=== PATIENT | male | born 1970 | race Caucasian/White ===

== ENCOUNTER 2018-06-21 12:46 | Emergency (ER) | payer OTHER, SELFPAY ==
[2018-06-21 12:47] VITALS: BP 117/80; PULSE 111; RESP 16; TEMP 36.9; O2SAT 97; BMI 22.6
[2018-06-21 13:19] LABS: Absolute Lymphocyte Count 1.05 X10^3/ul (0.83-4.51); Absolute Neutrophil Count 6.3 X10^3/uL (2.0-7.7); Basophil# 0.02 X10^3/uL; Basophil% 0.2 % (0-1); Eosinophil# 0.19 X10^3/uL; Eosinophils% 2.2 % (0-5); Hematocrit 40.2 % (40-54); Hemoglobin 13.2 g/dl (13.0-16.5); Lymphocyte # 1.05 X10^3/ul (4.0); Mean Corp Hgb Conc 32.8 g/gl (32-36); Mean Corpuscular Hgb 30.3 pg (27.0-32.0); Mean Corpuscular Volume 92.4 fL (80-94); Mean Platelet Vol. 8.8 fl (6.2-12.0); Monocyte# 1.17 X10^3/uL; Monocyte% 13.4 % (0-10); Neutrophil # 6.31 X10^3/uL (2.7-7.7); Neutrophil % 72.1 % (47-70); Platelet Count 310 K/mm3 (150-450); RBC Distribution Width CV 13.3 % (11.6-14.6); RBC Distribution Width SD 45.1 fl (35.1-43.9); Red Blood Count 4.35 M/mm3 (4.6-6.2); White Blood Count 8.8 K/mm3 (4.4-11.0)
[2018-06-21 13:23] LABS: POSITIVE COUNT NO; POSITIVE DIFFERENTIAL NO; POSITIVE MORPHOLOGY NO
[2018-06-21 13:35] LABS: Anion Gap 6 (5-15); BUN 16 mg/dL (7-18); BUN/Creat Ratio 16.8 RATIO (10-20); Calcium,Total 9.2 mg/dL (8.5-10.1); Chloride 106 mmol/L (98-107); Creatinine, Serum 0.95 mg/dL (0.70-1.30); EST Glomerular Filtration Rate 89 mL/min (>60); Est Glom Filt Rate - Afr Amer 108 mL/min (>60); Glucose 116 mg/dL (74-106); Potassium 4.1 mmol/L (3.5-5.1); Sodium Level 141 mmol/L (136-145)
--- NOTE | 2018-06-21 13:55 | RAD_ITS ---
STUDY: X-RAY - RIGHT TIBIA AND FIBULA REASON FOR EXAM: Male, 48 years old. Right leg wound. Possible infection. TECHNIQUE: 2 view(s) and 4 images of the tibia and fibula were obtained. COMPARISON: None. FINDINGS: The patient is status post open reduction internal fixation of a proximal tibial fracture with screw and sideplate fixation device. There is a focal lucency at the fracture site in the proximal tibia measuring 1.4 cm. Healed proximal diaphyseal fracture of the ulna. Focal soft tissue swelling overlying the proximal shaft of the tibia at the fracture site and within the lucency is seen. This may represent an area of osteomyelitis. RAD/Tibia & Fibula 2 Views IMPRESSION: Focal soft tissue swelling and lucency at the fracture site in the proximal tibial shaft suggestive of osteomyelitis. Electronically Signed: Stuart Diaz, at 14:14 EDT , Service support ,
[2018-06-21 15:11] VITALS: BP 133/86; PULSE 82; RESP 16; O2SAT 99
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
--- NOTE | 2018-06-21 15:22 | ED.DEP ---
ED Disposition - Plan for ED Patient: Instructions: Discharge Instructions for Osteomyelitis Prescriptions: Cephalexin [Keflex] 500 mg PO Q6 #56 cap Smz/Tmp Ds [Bactrim Ds] 1 tab PO BID #28 tab Referrals: Davon Bond MD [STAFF PHYSICIAN] -
[2018-06-21 15:38] VITALS: BP 134/62; PULSE 59; RESP 16; O2SAT 97
[2018-06-21 15:58] LABS: Erythrocyte Sedimentation Rate 73 mm/hr (0-20)
== END 2018-06-21 15:38 | disposition home or self-care (01) ==
PROVIDERS: Emergency Provider Emergency Medicine
DX: M86.9 Osteomyelitis, unspecified (principal); Z72.0 Tobacco use
CPT/HCPCS: 73590; 80048; 85025; 85652; 86140; 99283; A4216

== ENCOUNTER 2018-10-05 21:45 | Emergency (ER) | payer OTHER, SELFPAY ==
[2018-10-05 21:48] VITALS: BP 125/73; BP 125/79; PULSE 99; RESP 17; TEMP 36.5; O2SAT 96; BMI 20.9
--- NOTE | 2018-10-05 23:42 | ED.VISSUMM ---
- ER Visit Summary Date of Service: 10/05/18 Chief Complaint: Foreign body sensation History of Present Illness: The patient is a 48 M who presents with a foreign body sensation left eye. 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 After work beginning about 5 hours ago he began to have a foreign body sensation redness and tearing in his left eye. He is concerned there may be some metal at rest. He has a history of prior similar symptoms. Physical Examination: Afebrile vitals unremarkable There is some conjunctival injection on the left Pupils are equally round reactive to light, extraocular motion intact without pain or palsy Anterior chamber deep and quiet Slit-lamp examination does show a metallic foreign body in the cornea near the 12 o'clock position Test Results: Slit-lamp examination Emergency Department Course and Treatment: The metallic foreign body was removed using the eye bur without any immediate complication. There is a residual rust ring. Patient was placed on ophthalmic antibiotic drops and referred to ophthalmology for follow-up. He understands to return for new or worsening symptoms. Treatment Plan: [] Disposition: Discharge Impression: Corneal foreign body, left, removed Rust ring left eye This note was generated with [employer] dictation software. It may contain incorrect words, spelling, and punctuation that were not noted in review of the chart prior to signing ED Disposition - Plan for ED Patient: Referrals: Care Physician,No Primary [Primary Care Provider] -
[2018-10-06] MEDS: Tetracaine 0.5% Ophthalmic Bottle 1 DRP LEFT EYE (00:06)
[2018-10-06] MEDS: Fluorescein 1 MG STRIP 1 STRIP LEFT EYE (00:06)
--- NOTE | 2018-10-06 00:07 | ED.DEP ---
ED Disposition - Plan for ED Patient: Instructions: CORNEAL FOREIGN BODY, Removed, w/ Rust Ring Referrals: Care Physician,No Primary [Primary Care Provider] - Josue Zimmerman MD [STAFF PHYSICIAN] -
[2018-10-06] MEDS: Gentamicin Sulfate 1 OPTH.BTL 1 DRP LEFT EYE (00:08)
== END 2018-10-06 00:16 | disposition home or self-care (01) ==
PROVIDERS: Emergency Provider Emergency Medicine
DX: T15.02XA Foreign body in cornea, left eye, initial encounter (principal); X58.XXXA Exposure to other specified factors, initial encounter; Y93.9 Activity, unspecified; Y92.9 Unspecified place or not applicable; Z72.0 Tobacco use
CPT/HCPCS: 99283

== ENCOUNTER → 2018-12-15 18:58 | Outpatient (CLI) | payer OTHER, SELFPAY ==
[2018-12-15 19:29] LABS: Absolute Lymphocyte Count 2.18 X10^3/uL (0.83-4.51); Absolute Neutrophil Count 3.6 X10^3/uL (2.0-7.7); Basophil# 0.06 X10^3/uL; Basophil% 0.9 % (0-1); Eosinophil# 0.25 X10^3/uL; Eosinophils% 3.6 % (0-5); Hematocrit 36.7 % (40-54); Hemoglobin 11.8 g/dL (13.0-16.5); Lymphocyte # 2.18 X10^3/ul (4.0); Lymphocyte % 31.2 % (19-41); Mean Corp Hgb Conc 32.2 g/dL (32-36); Mean Corpuscular Hgb 30.7 pg (27.0-32.0); Mean Corpuscular Volume 95.6 fL (80-94); Mean Platelet Vol. 9.1 fl (6.2-12.0); Monocyte# 0.86 X10^3/uL; Monocyte% 12.3 % (0-10); NRBC Flagged by Analyzer 0 % (0-5); Neutrophil # 3.62 X10^3/uL (2.7-7.7); Neutrophil % 51.7 % (47-70); Platelet Count 239 K/mm3 (150-450); RBC Distribution Width CV 14.3 % (11.6-14.6); RBC Distribution Width SD 50.4 fl (35.1-43.9); Red Blood Count 3.84 M/mm3 (4.6-6.2)
[2018-12-15 20:01] LABS: Erythrocyte Sedimentation Rate 3 mm/hr (0-20)
[2018-12-15 20:09] LABS: ALB/GLOB Ratio 1.3 RATIO (0.9-2.4); AST(SGOT) 22 U/L (15-37); Alanine Aminotransfer ALT/SGPT 27 U/L (16-61); Albumin, Serum 4.3 g/dL (3.2-5.0); Alkaline Phosphatase 45 U/L (45-117); Anion Gap 7 (5-15); BUN 23 mg/dL (7-18); BUN/Creat Ratio 23.9 RATIO (10-20); Calcium,Total 9.1 mg/dL (8.5-10.1); Chloride 107 mmol/L (98-107); Creatinine, Serum 0.96 mg/dL (0.70-1.30); EST Glomerular Filtration Rate 88 mL/min (>60); Est Glom Filt Rate - Afr Amer 106 mL/min (>60); Globulin 3.3 g/dL (2.2-4.2); Glucose 62 mg/dL (74-106); Protein, Total 7.6 g/dL (6.4-8.2); Sodium Level 140 mmol/L (136-145)
== END ==
PROVIDERS: Referring Provider Internal Medicine Infectious Disease; Visit Provider Internal Medicine Infectious Disease
DX: T84.7XXD Infection and inflammatory reaction due to other internal orthopedic prosthetic devices, implants and grafts, subsequent encounter (principal)
CPT/HCPCS: 36415; 80053; 85025; 85652

== ENCOUNTER → 2019-10-19 16:27 | Outpatient (CLI) | payer OTHER, SELFPAY ==
[2019-10-19 17:06] LABS: Absolute Lymphocyte Count 1.71 X10^3/uL (0.83-4.51); Basophil# 0.05 X10^3/uL; Basophil% 0.7 % (0-1); Eosinophil# 0.23 X10^3/uL; Eosinophils% 3.4 % (0-5); Hematocrit 37.3 % (40-54); Hemoglobin 11.9 g/dL (13.0-16.5); Lymphocyte # 1.71 X10^3/ul (4.0); Lymphocyte % 25.1 % (19-41); Mean Corp Hgb Conc 31.9 g/dL (32-36); Mean Corpuscular Hgb 30.9 pg (27.0-32.0); Mean Corpuscular Volume 96.9 fL (80-94); Mean Platelet Vol. 9.5 fl (6.2-12.0); Monocyte% 11.7 % (0-10); NRBC Flagged by Analyzer 0 % (0-5); Neutrophil # 4.01 X10^3/uL (2.7-7.7); Neutrophil % 58.8 % (47-70); Platelet Count 284 K/mm3 (150-450); RBC Distribution Width CV 14.3 % (11.6-14.6); RBC Distribution Width SD 50.8 fl (35.1-43.9); Red Blood Count 3.85 M/mm3 (4.6-6.2); White Blood Count 6.8 K/mm3 (4.4-11.0)
[2019-10-19 17:32] LABS: ALB/GLOB Ratio 1.2 RATIO (0.9-2.4); AST(SGOT) 18 U/L (15-37); Alanine Aminotransfer ALT/SGPT 21 U/L (16-61); Alkaline Phosphatase 56 U/L (45-117); Anion Gap 4 (5-15); BUN 26 mg/dL (7-18); BUN/Creat Ratio 30.4 RATIO (10-20); Calcium,Total 8.7 mg/dL (8.5-10.1); Chloride 109 mmol/L (98-107); Creatinine, Serum 0.85 mg/dL (0.70-1.30); EST Glomerular Filtration Rate 100 mL/min (>60); Est Glom Filt Rate - Afr Amer 121 mL/min (>60); Globulin 3.4 g/dL (2.2-4.2); Glucose 108 mg/dL (74-106); Potassium 3.9 mmol/L (3.5-5.1); Protein, Total 7.4 g/dL (6.4-8.2); Sodium Level 138 mmol/L (136-145)
== END ==
PROVIDERS: Referring Provider Internal Medicine Infectious Disease; Visit Provider Internal Medicine Infectious Disease
DX: M86.60 Other chronic osteomyelitis, unspecified site (principal); T84.7XXD Infection and inflammatory reaction due to other internal orthopedic prosthetic devices, implants and grafts, subsequent encounter
CPT/HCPCS: 36415; 80053; 85025

== ENCOUNTER 2020-06-04 17:06 | Emergency (ER) | payer OTHER, SELFPAY ==
[2020-06-04 17:07] VITALS: BP 125/65; PULSE 107; RESP 18; TEMP 36.3; O2SAT 96
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
[2020-06-04 17:40] LABS: Absolute Lymphocyte Count 1.85 X10^3/uL (0.83-4.51); Absolute Neutrophil Count 4.4 X10^3/uL (2.0-7.7); Basophil# 0.05 X10^3/uL; Basophil% 0.7 % (0-1); Eosinophil# 0.22 X10^3/uL; Hematocrit 39.5 % (40-54); Hemoglobin 12.9 g/dL (13.0-16.5); Lymphocyte # 1.85 X10^3/ul (4.0); Mean Corp Hgb Conc 32.7 g/dL (32-36); Mean Corpuscular Hgb 31.8 pg (27.0-32.0); Mean Corpuscular Volume 97.3 fL (80-94); Mean Platelet Vol. 8.9 fl (6.2-12.0); Monocyte% 12.2 % (0-10); NRBC Flagged by Analyzer 0 % (0-5); Neutrophil # 4.36 X10^3/uL (2.7-7.7); Neutrophil % 58.8 % (47-70); Platelet Count 277 K/mm3 (150-450); RBC Distribution Width CV 13.9 % (11.6-14.6); RBC Distribution Width SD 49.5 fl (35.1-43.9); Red Blood Count 4.06 M/mm3 (4.6-6.2); White Blood Count 7.4 K/mm3 (4.4-11.0)
[2020-06-04 17:49] VITALS: BP 125/65; PULSE 107; RESP 18; TEMP 36.3; O2SAT 96
[2020-06-04] MEDS: 0.9% Normal Saline 1,000 ML 150 ML IV (17:49)
[2020-06-04 17:57] LABS: AST(SGOT) 15 U/L (15-37); Alanine Aminotransfer ALT/SGPT 21 U/L (16-61); Albumin, Serum 3.9 g/dL (3.2-5.0); Alkaline Phosphatase 59 U/L (45-117); Anion Gap 5 (5-15); BUN 34 mg/dL (7-18); BUN/Creat Ratio 34.8 RATIO (10-20); Calcium,Total 9.4 mg/dL (8.5-10.1); Chloride 111 mmol/L (98-107); Creatinine, Serum 0.98 mg/dL (0.70-1.30); EST Glomerular Filtration Rate 86 mL/min (>60); Est Glom Filt Rate - Afr Amer 104 mL/min (>60); Estimated Creatinine Clearance 3.15 ml/min; Globulin 3.9 g/dL (2.2-4.2); Glucose 112 mg/dL (74-106); Lipase 210 U/L (73-393); Potassium 4.2 mmol/L (3.5-5.1); Protein, Total 7.8 g/dL (6.4-8.2); Sodium Level 141 mmol/L (136-145)
[2020-06-04 18:01] LABS: Bacteria 0 SEEN /hpf (None Seen); Color, Urine Yellow (Yellow); Glucose, Dipstick Normal (Normal); Ketone-Dipstick Negative (Negative); Leukocyte Esterase-Dipstick Negative /ul (Negative); Mucous, Urine 0 SEEN /hpf (<or=2+); Nitrite-Dipstick Negative (Negative); Occult Blood-Urine Negative /ul (Negative); Protein-Dipstick 15 mg/dl (Negative); Specific Gravity, Urine 1.025 (1.002-1.030); Squamous Epithelial Cells - UA 0 SEEN /hpf (0-5); Urine Bilirubin Dipstick Negative (Negative); Urine Clarity Clear (Clear); Urine Urobilinogen Normal (Normal)
--- NOTE | 2020-06-04 18:03 | RAD_ITS ---
INDICATION: weight loss, weakness EXAMINATION/TECHNIQUE: X-RAY - XR Chest 2 Views COMPARISON: None. FINDINGS: Hyperinflated lungs. The lungs are otherwise clear. The cardiomediastinal silhouette is unremarkable. No pleural effusion or pneumothorax. No acute osseous abnormalities. RAD/Chest PA and Lateral IMPRESSION: No acute radiographic abnormalities. Hyperinflated lungs which can be seen in asthma or COPD. Electronically Signed: Allen Parr MD at 18:54 EDT Tel , Service support ,
[2020-06-04 18:18] LABS: Red Blood Cells-Urine 0-5 SEEN /hpf (0-5); White Blood Cells 0-5 SEEN /hpf (0-5)
--- NOTE | 2020-06-04 19:06 | ED.DEP ---
ED Disposition - Plan for ED Patient: Instructions: Weight Management: Healthy Eating Referrals: Care Physician,No Primary [Primary Care Provider] - Tatum Roberts MD [STAFF PHYSICIAN] - 3-5 Days Additional Instructions: Reason for your weight loss is unclear and you will need further workup as an outpatient.
[2020-06-04 19:16] VITALS: BP 119/75; PULSE 87; RESP 15; O2SAT 98
== END 2020-06-04 19:17 | disposition home or self-care (01) ==
LOC: ED 17:32
PROVIDERS: Emergency Provider Emergency Medicine
DX: R63.4 Abnormal weight loss (principal); M86.661 Other chronic osteomyelitis, right tibia and fibula; J44.9 Chronic obstructive pulmonary disease, unspecified; Z79.2 Long term (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; F17.200 Nicotine dependence, unspecified, uncomplicated
CPT/HCPCS: 71046; 80053; 81001; 83690; 85025; 96360; 99283; J7030; A4216

== ENCOUNTER → 2021-01-09 16:29 | Outpatient (CLI) | payer OTHER, SELFPAY ==
[2021-01-09 16:53] LABS: Absolute Lymphocyte Count 1.42 X10^3/uL (0.83-4.51); Absolute Neutrophil Count 5.3 X10^3/uL (2.0-7.7); Basophil# 0.05 X10^3/uL; Basophil% 0.7 % (0-1); Eosinophil# 0.16 X10^3/uL; Eosinophils% 2.1 % (0-5); Hematocrit 37.7 % (40-54); Hemoglobin 12.3 g/dL (13.0-16.5); Lymphocyte # 1.42 X10^3/ul (0.83-4.51); Lymphocyte % 18.5 % (19-41); Mean Corp Hgb Conc 32.6 g/dL (32-36); Mean Corpuscular Hgb 30.8 pg (27.0-32.0); Mean Corpuscular Volume 94.5 fL (80-94); Monocyte# 0.77 X10^3/uL; NRBC Flagged by Analyzer 0 % (0-5); Neutrophil # 5.25 X10^3/uL (2.7-7.7); Neutrophil % 68.3 % (47-70); Platelet Count 294 K/mm3 (150-450); RBC Distribution Width SD 48.4 fl (35.1-43.9); Red Blood Count 3.99 M/mm3 (4.6-6.2); White Blood Count 7.7 K/mm3 (4.4-11.0)
[2021-01-09 17:12] LABS: AST(SGOT) 17 U/L (15-37); Alanine Aminotransfer ALT/SGPT 20 U/L (16-61); Albumin, Serum 3.9 g/dL (3.2-5.0); Alkaline Phosphatase 56 U/L (45-117); Anion Gap 7 (5-15); BUN 26 mg/dL (7-18); BUN/Creat Ratio 25.7 RATIO (10-20); Calcium,Total 8.9 mg/dL (8.5-10.1); Chloride 107 mmol/L (98-107); Creatinine, Serum 1.01 mg/dL (0.70-1.30); EST Glomerular Filtration Rate 82 mL/min (>60); Est Glom Filt Rate - Afr Amer 100 mL/min (>60); Globulin 3.9 g/dL (2.2-4.2); Glucose 97 mg/dL (74-106); Potassium 3.9 mmol/L (3.5-5.1); Protein, Total 7.8 g/dL (6.4-8.2); Sodium Level 140 mmol/L (136-145)
== END ==
PROVIDERS: Visit Provider Internal Medicine Infectious Disease
DX: M86.60 Other chronic osteomyelitis, unspecified site (principal); Z79.2 Long term (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; T84.7XXD Infection and inflammatory reaction due to other internal orthopedic prosthetic devices, implants and grafts, subsequent encounter
CPT/HCPCS: 36415; 80053; 85025

== ENCOUNTER → 2022-05-07 | Outpatient (CLI) | payer BC, SELFPAY ==
[2022-05-07 16:19] LABS: Erythrocyte Sedimentation Rate 5 mm/hr (0-20)
== END | disposition home or self-care (01) ==
LOC: LAB 16:00
PROVIDERS: Visit Provider Internal Medicine Infectious Disease
DX: M86.60 Other chronic osteomyelitis, unspecified site (principal); T84.7XXD Infection and inflammatory reaction due to other internal orthopedic prosthetic devices, implants and grafts, subsequent encounter; Z79.2 Long term (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
CPT/HCPCS: 36415; 85652

== ENCOUNTER → 2022-11-18 | Outpatient (CLI) | payer BC, SELFPAY ==
[2022-11-18 16:57] LABS: Absolute Lymphocyte Count 1.08 X10^3/uL (0.83-4.51); Absolute Neutrophil Count 3.7 X10^3/uL (2.0-7.7); Basophil# 0.04 X10^3/uL; Basophil% 0.7 % (0-1); Eosinophil# 0.23 X10^3/uL; Hematocrit 36.5 % (40-54); Hemoglobin 11.6 g/dL (13.0-16.5); Lymphocyte # 1.08 X10^3/ul (0.83-4.51); Lymphocyte % 18.7 % (19-41); Mean Corp Hgb Conc 31.8 g/dL (32-36); Mean Corpuscular Hgb 32.1 pg (27.0-32.0); Mean Corpuscular Volume 101.1 fL (80-94); Mean Platelet Vol. 8.5 fl (6.2-12.0); Monocyte# 0.72 X10^3/uL; Monocyte% 12.5 % (0-10); NRBC Flagged by Analyzer 0 % (0-5); Neutrophil # 3.69 X10^3/uL (2.7-7.7); Neutrophil % 63.9 % (47-70); Platelet Count 258 K/mm3 (150-450); RBC Distribution Width CV 14.5 % (11.6-14.6); RBC Distribution Width SD 53.8 fl (35.1-43.9); Red Blood Count 3.61 M/mm3 (4.6-6.2); White Blood Count 5.8 K/mm3 (4.4-11.0)
[2022-11-18 17:03] LABS: Erythrocyte Sedimentation Rate 10 mm/hr (0-20)
[2022-11-18 17:28] LABS: AST(SGOT) 14 U/L (15-37); Alanine Aminotransfer ALT/SGPT 20 U/L (16-61); Albumin, Serum 3.7 g/dL (3.2-5.0); Alkaline Phosphatase 83 U/L (45-117); Anion Gap 7 (5-15); BUN 28 mg/dL (7-18); BUN/Creat Ratio 30.7 RATIO (10-20); Calcium,Total 8.9 mg/dL (8.5-10.1); Chloride 107 mmol/L (98-107); Creatinine, Serum 0.91 mg/dL (0.70-1.30); EST Glomerular Filtration Rate 92 mL/min (>60); Est Glom Filt Rate - Afr Amer 111 mL/min (>60); Globulin 3.7 g/dL (2.2-4.2); Glucose 100 mg/dL (74-106); Potassium 3.7 mmol/L (3.5-5.1); Protein, Total 7.4 g/dL (6.4-8.2); Sodium Level 137 mmol/L (136-145)
== END | disposition home or self-care (01) ==
LOC: LAB 16:36
PROVIDERS: Referring Provider Internal Medicine Infectious Disease; Visit Provider Internal Medicine Infectious Disease
DX: Z79.2 Long term (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 (principal); T84.7XXD Infection and inflammatory reaction due to other internal orthopedic prosthetic devices, implants and grafts, subsequent encounter
CPT/HCPCS: 36415; 80053; 85025; 85652

== ENCOUNTER → 2023-04-11 | Outpatient (CLI) | payer BC, SELFPAY ==
[2023-04-11 12:16] LABS: Absolute Lymphocyte Count 0.97 X10^3/uL (0.83-4.51); Absolute Neutrophil Count 3.1 X10^3/uL (2.0-7.7); Basophil# 0.08 X10^3/uL; Basophil% 1.5 % (0-1); Eosinophil# 0.45 X10^3/uL; Eosinophils% 8.4 % (0-5); Hematocrit 38.7 % (40-54); Hemoglobin 12.7 g/dL (13.0-16.5); Lymphocyte # 0.97 X10^3/ul (0.83-4.51); Lymphocyte % 18.1 % (19-41); Mean Corp Hgb Conc 32.8 g/dL (32-36); Mean Corpuscular Hgb 32.8 pg (27.0-32.0); Mean Platelet Vol. 9.7 fl (6.2-12.0); Monocyte# 0.71 X10^3/uL; Monocyte% 13.2 % (0-10); NRBC Flagged by Analyzer 0 % (0-5); Neutrophil # 3.14 X10^3/uL (2.7-7.7); Neutrophil % 58.4 % (47-70); Platelet Count 317 K/mm3 (150-450); RBC Distribution Width CV 14.5 % (11.6-14.6); RBC Distribution Width SD 53.1 fl (35.1-43.9); Red Blood Count 3.87 M/mm3 (4.6-6.2); White Blood Count 5.4 K/mm3 (4.4-11.0)
[2023-04-11 12:24] LABS: Anion Gap 4 (5-15); BUN 29 mg/dL (7-18); BUN/Creat Ratio 43.5 RATIO (10-20); Calcium,Total 9.4 mg/dL (8.5-10.1); Chloride 110 mmol/L (98-107); Creatinine, Serum 0.67 mg/dL (0.70-1.30); EST Glomerular Filtration Rate 132 mL/min (>60); Est Glom Filt Rate - Afr Amer 160 mL/min (>60); Glucose 101 mg/dL (74-106); Sodium Level 142 mmol/L (136-145)
== END | disposition home or self-care (01) ==
LOC: LABSPEC 11:41
DX: T84.622D Infection and inflammatory reaction due to internal fixation device of right tibia, subsequent encounter (principal); M86.661 Other chronic osteomyelitis, right tibia and fibula
CPT/HCPCS: 80048; 85025

== ENCOUNTER → 2023-04-25 | Outpatient (CLI) | payer BC, SELFPAY ==
--- OUTSIDE RECORDS SUMMARY | 2023-04-25 11:57 | XMS RPT_ITS | CCD ---
Author Name Unknown Address [address] [place] [address] Organization [facility] Care Team Providers Care Tool Room Supervisor Name Role Phone Yeison Jean MD Primary Care Provider Awilda Rodney Primary Care Provider KENDELL GRIFFITHS Admitting Unavailable RODNEY, AWILDA Primary Care Unavailable KENDELL GRIFFITHS Attending Unavailable SHASHA, AWILDA Primary Care Unavailable KENDELL GRIFFITHS Attending Unavailable RODNEY, AWILDA Primary Care Unavailable KENDELL GRIFFITHS Attending Unavailable RODNEY, AWILDA Primary Care Unavailable GRIFFITHS, KENDELL Attending Unavailable RODNEY, AWILDA Primary Care Unavailable MAX, ABDOULAYE Referring Unavailable RODNEY, AWILDA Primary Care Unavailable MAX, ABDOULAYE Referring Unavailable MAX, ABDOULAYE Referring Unavailable RODNEY, AWILDA Primary Care Unavailable RODNEY, AWILDA Primary Care Unavailable MANDAPAT, MITALI Attending Unavailable RODNEY, AWILDA Primary Care Unavailable RODNEY, AWILDA Primary Care Unavailable MANDAPAT, MITALI Attending Unavailable Allergies Allergy Classification Reported Allergen(s) Allergy Type Date of Onset Reaction(s) Facility (3 sources) diazePAM Drug Allergy 1 Mental Status Change [facility] (19 sources) Morphine Drug Allergy 1 Mental Status Change, Other [facility] (16 sources) Codeine Drug Allergy 9 Nausea Only [facility] (16 sources) Diazepam Propensity to adverse reactions 1 Other [facility] Medications Current Medications Medication Drug Class(es) Dates Sig (Normalized) Sig (Original) aspirin 81 mg delayed release oral tablet (6 sources) Platelet Aggregation Inhibitor, Nonsteroidal Anti-inflammatory Drug Start: 03-24-2023 End: 04-23-2023 take 1 tablet by mouth once daily aspirin 81 MG EC tablet Take 1 tablet (81 mg) by mouth daily. 30 tablet 0 03/24/2023 04/23/2023 Active cefepime (1 source) Cephalosporin Antibacterial Start: 2023 End: 05-05-2023 take 2 g intravenously every eight hours CEFEPIME HCL IV Infuse 2 g into a venous catheter in the morning and 2 g at noon and 2 g before bedtime. Do not start before 2023. 0 2023 05/05/2023 Active cefepime 2,000 mg in sodium chloride 0.9 % 50 mL IVPB (3 sources) Start: 03-28-2023 End: 05-09-2023 take 2000 mg intravenously every eight hours cefepime 2,000 mg in sodium chloride 0.9 % 50 mL IVPB Infuse 2,000 mg into a venous catheter in the morning and 2,000 mg at noon and 2,000 mg before bedtime. 126 each 0 03/28/2023 05/09/2023 Active Glucosamine (19 sources) GLUCOSAMINE SULFATE PO Take by mouth 3 times daily. 0 Suspended Completed/Discontinued Medications Medication Drug Class(es) Dates Sig (Normalized) Sig (Original) acetaminophen 325 mg oral tablet (18 sources) Start: 03-24-2023 End: 03-28-2023 take 1 tablet by mouth every four hours acetaminophen (Tylenol) tablet 650 mg Problems Active Problems Problem Classification Problem Date Documented Date Episodic/Chronic Esophageal disorders (19 sources) Gastroesophageal reflux disease without esophagitis; Translations: [Gastro-esophageal reflux disease without esophagitis] Onset: 01-13-2021 01-13-2021 Chronic Fracture of lower limb (7 sources) Closed fracture of shaft of femur; Translations: [Displaced comminuted fracture of shaft of left femur, subsequent encounter for closed fracture with malunion] Onset: 03-24-2023 12-07-2022 Episodic Infective arthritis and osteomyelitis (except that caused by tuberculosis or sexually transmitted disease) (20 sources) Chronic osteomyelitis; Translations: [Other chronic osteomyelitis, unspecified site] Onset: 01-13-2021 01-13-2021 Chronic Other aftercare (4 sources) Long-term current use of antibiotic; Translations: [FDC (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] Onset: 03-24-2023 11-02-2022 Episodic Other aftercare (1 source) FDC (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; Translations: [exterminator (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] Onset: 03-24-2023 Episodic Other non-traumatic joint disorders (1 source) Shoulder pain; Translations: [Pain in left shoulder] Episodic Unclassified (2 sources) Post-op; Translations: [Post-op] Onset: 04-05-2023 Past or Other Problems Problem Classification Problem Date Documented Da te Episodic/Chronic Complication of device; implant or graft (3 sources) Infection associated with implant; Translations: [Infection and inflammatory reaction due to other internal orthopedic prosthetic devices, implants and grafts, subsequent encounter] Onset: 05-04-2022 11-02-2022 Episodic Other aftercare (3 sources) Drug therapy finding; Translations: [Other custodial (current) drug therapy] Onset: 01-13-2021 01-13-2021 Episodic Results Test Name Value Interpretation Reference Range Facil ity Vital Signs Date Time Vital Sign Value Performing Clinician Faci lity 03-28-2023 09:12-0500 Body temperature 97.9 [degF] Kendell Griffiths MD Work Phone: [facility] [employer] 03-28-2023 09:12-0500 Diastolic blood pressure 78 mm[Hg] Kendell Griffiths MD Work Phone: [facility] [employer] 03-28-2023 09:12-0500 Heart rate 97 /min Kendell Griffiths MD Work Phone: [facility] [employer] 03-28-2023 09:12-0500 Respiratory rate 16 /min Kendell Griffiths MD Work Phone: [facility] [employer] 03-28-2023 09:12-0500 SaO2% (BldA) [Mass fraction] 99 % Kendell Griffiths MD Work Phone: [facility] [employer] 03-28-2023 09:12-0500 Systolic blood pressure 117 mm[Hg] Kendell Griffiths MD Work Phone: [facility] [employer] 03-24-2023 05:46-0500 Body height 176.5 cm Kendell Griffiths MD Work Phone: [facility] [employer] 03-24-2023 05:46-0500 Body mass index (BMI) [Ratio] 23.29 kg/m2 Kendell Griffiths MD Work Phone: [facility] [employer] 03-24-2023 05:46-0500 Body weight 72.58 kg Kendell Griffiths MD Work Phone: [facility] 02-22-2023 14:45-0500 Body height 175.3 cm Kendell Griffiths MD Work Phone: [facility] 02-22-2023 14:45-0500 Body mass index (BMI) [Ratio] 23.63 kg/m2 Kendell Griffiths MD Work Phone: [facility] 02-22-2023 14:45-0500 Body weight 72.58 kg Kendell Griffiths MD Work Phone: [facility] 12-07-2022 14:04-0400 Body height 176.5 cm Kendell Griffiths MD Work Phone: [facility] 12-07-2022 14:04-0400 Body mass index (BMI) [Ratio] 23.29 kg/m2 Kendell Griffiths MD Work Phone: [facility] 12-07-2022 14:04-0400 Body weight 72.58 kg Kendell Griffiths MD Work Phone: [facility] 08-06-2021 09:07-0400 Body temperature 98.29 [degF] Awilda Rodney PA-C Work Phone: [facility] 08-06-2021 09:07-0400 Body weight 74.39 kg Awilda Rodney PA-C Work Phone: [facility] 08-06-2021 09:07-0400 Diastolic blood pressure 76 mm[Hg] Awilda Rodney PA-C Work Phone: [facility] 08-06-2021 09:07-0400 Heart rate 96 /min Awilda Rodney PA-C Work Phone: [facility] 08-06-2021 09:07-0400 Respiratory rate 18 /min Awilda Rodney PA-C Work Phone: [facility] 08-06-2021 09:07-0400 Systolic blood pressure 122 mm[Hg] Awilda Rodney PA-C Work Phone: [facility] Encounters Encounter Date Encounter Type Care Provider Facility Start: 04-05-2023 End: 04-05-2023 ambulatory AWILDA RODNEY [facility] Start: 04-04-2023 Orders Only Kendell Griffiths MD Work Phone: [facility] Procedures Date Procedure Procedure Detail Performing Clinician Start: 03-28-2023 Radiologic exam ches t single view Olena Nassar MD Work Phone: Start: 03-28-2023 Insertion picc w/rs& i 5 yr/> Olena Nassar MD Work Phone: Start: 03-28-2023 Basic metabolic pane l calcium total Osmany Driver MD Work Phone: Start: 03-27-2023 Drug screen quantita tive vancomycin Kendell Griffiths MD Work Phone: Start: 03-27-2023 Basic metabolic pane l calcium total Osmany Driver MD Work Phone: Start: 03-26-2023 Basic metabolic pane l calcium total Osmany Driver MD Work Phone: Start: 03-26-2023 Drug screen quantita tive vancomycin Osmany Driver MD Work Phone: Start: 03-25-2023 Basic metabolic pane l calcium total Osmany Driver MD Work Phone: Start: 03-24-2023 FL GUIDANCE OR USE O NLY - NON-RESULTABLE Kendell Griffiths MD Work Phone: Start: 03-24-2023 End: 03-24-2023 Culture bacterial any source anaerobic iso&id Kendell Griffiths MD Work Phone: Start: 03-24-2023 End: 03-24-2023 Incision & drainage leg/ankle abscess/hematoma Kendell Griffiths MD Work Phone: Start: 03-24-2023 End: 03-24-2023 Removal implant deep Kendell Griffiths MD Work Phone: Start: 02-22-2023 Follow-up visit Follow-up KENDELL JOHN Start: 09-02-2020 Adult depression scr eening assessment Awilda Rodney PA-C Work Phone: Start: 07-03-2020 Colonoscopy Awilda queen PA-C Work Phone: Plan of Treatment Date Care Activity Detail Author Start: 01-13-2031 DTaP/Tdap/Td Vaccines (2 - Td or Tdap) DTaP/Tdap/Td Vaccines (2 - Td or Tdap) [facility] Start: 01-13-2031 Urine microalbumin profile DTAP,TDAP,TD (2 - Td or Tdap) [facility] Start: 07-03-2030 Colonoscopy COLONOSCOPY [facility] Start: 07-03-2030 COLORECTAL CANCER SCREENING COLORECTAL CANCER SCREENING [facility] Start: 2028 RSV Immunization aged 60 or older (1 - 1-dose 60+ series) RSV Immunization aged 60 or older (1 - 1-dose 60+ series) [facility] Start: 01-13-2026 LIPID SCREEN LIPID SCREEN [facility] Start: 01-14-2024 DIABETES SCREEN DIABETES SCREEN [facility] Start: 06-14-2023 End: 06-14-2023 Patient encounter procedure 06/14/2023 2:00 PM EDT Office Visit [facility] [address] [place] [address] Kendell Griffiths MD [address] [place] [address] [facility] Start: 05-03-2023 End: 05-03-2023 Patient encounter procedure 05/03/2023 2:00 PM EST Office Visit [facility] [address] [place] [address] Kendell Griffiths MD [address] [place] [address] [facility] Start: 04-26-2023 End: 04-26-2023 Patient encounter procedure 04/26/2023 11:30 AM EST Office Visit [facility] Infectious Disease [address] [place] [address] Mitali Downing MD [address] [place], [place] [id number] [facility] Infectious Disease Start: 04-26-2023 End: 04-26-2023 Telemedicine consultation with patient 04/26/2023 11:30 AM EST Telemedicine [facility] Infectious Disease [address] [place] [address] Mitali Downing MD [address] [place], [place] [id number] [facility] Infectious Disease Start: 04-05-2023 End: 04-05-2023 Patient encounter procedure 04/05/2023 2:10 PM EST Office Visit [facility] Orthopedics and Sports Medicine [address] [place] [id number] Kendell Griffiths MD [address] [facility] [address] [place] [address] [facility] Start: 04-05-2023 End: 04-04-2024 XR Tibia and Fibula - right 2 Views XR tibia fibula 2 views right Imaging Routine Chronic osteomyelitis (CMS/HCC) (HCC) Expected: 04/05/2023, Expires: 04/04/2024 [facility] Work Phone: Immunizations Immunization Date Immunization Notes Care Provider Fa cility 01-13-2021 tetanus toxoid, redu amaury diphtheria toxoid, and acellular pertussis vaccine, adsorbed Awilda Rodney PA-C Work Phone: [facility] Payers Date Payer Category Payer Unknown [employer] S [employer] [id number] 2022-Present [address] [place] [address] Commercial [id number] 2022 Unknown [id number] 2019 Private Health Insurance [employer] PPO [id number] 2019-Present [phone] [address] [place] [address] PPO [id number] 2019 Private Health Insurance [employer] PPO [id number] 2019-Present [id number] [place] [id number] PPO [id number] Social History Date Type Detail Facility Start: 06-09-2020 End: 03-21-2023 Tobacco smoking status UTIS Smokes tobacco daily [facility] Start: 06-09-2020 End: 03-24-2023 Cigarettes smoked current (pack per day) - Reported 1 [facility] Start: 06-09-2020 End: 03-21-2023 Tobacco use and exposure User of smokeless tobacco [facility] History of tobacco use Snuff User [facility] Start: 08-06-2021 End: 03-24-2023 Alcohol intake Current drinker of alcohol (finding) [facility] Start: 09-02-2020 History SDOH Alcohol Frequency 5 [facility] Start: 09-02-2020 History SDOH Alcohol Std Drinks 4 [facility] Start: 09-02-2020 End: 01-07-2021 History SDOH Social Connections Get Together 2 [facility] Start: 09-02-2020 History SDOH Social Connections Taoist 1 [facility] Start: 09-02-2020 History SDOH Social Connections Living 8 [facility] Start: 09-02-2020 History SDOH Physica l Activity DPW 0 [facility] Start: 01-07-2021 History SDOH Housing Homeless Last Year 3 [facility] Start: 09-02-2020 Education 12 [facility] Start: 1970 Sex Assigned At Male [facility] Start: 07-27-2021 End: 11-02-2022 Exposure to SARS-CoV-2 (event) Not sure [facility] History of tobacco use Cigarette Smoker C [facility] Start: 05-04-2022 End: 03-24-2023 Tobacco use panel [facility] Start: 1970 Sex Assigned At Not on file S [facility] History of tobacco use Chews Tobacco [facility] Start: 03-21-2023 Tobacco Comment ONLY WHEN AT WORK [facility] Start: 03-21-2023 Alcohol Comment DAILY HAS 6 DR JOSE CASAS [facility] Medical Equipment Procedure Code Equipment Code Equipment Origin al Text Equipment Identifier Dates Graft Bone Rapid 10cc Stimulan - [id number] Start: 03-24-2023 Clinical Notes 07-03-2020 to 03-28-2023 Jo Doe RN - 03/28/2023 5:24 PM Michi Doe RN - 03/28/2023 5:24 PM ESTCare Coordination - Unknown Case Management - 03/28/2023 5:17 PM Niko Nassar MD - 03/28/2023 3:30 PM EST Note Date & Type Note Facility 03-28-2023 Note PICC Insertion/Repla cement Date/Time: 03/28/2023 3:30 PM Performed by: Olena Nassar MD Authorized by: Olena Nassar MD Consent: The indications, risks, benefits, alternatives to the procedure were explained to the patient/surrogate decision maker and their questions answered. Consent was obtained to proceed with the procedure. Timeout: Completed immediately prior to the start of the procedure which included verification of the correct patient, correct site and agreement on the procedure to be done. Indications: Indications: Long-term antibiotics and other (see comment) Indications comment: RLE OM d/t PsA Anesthetic: Local anesthetic used: lidocaine without epinephrine Procedure details: Preparation: Skin prepped with chlorhexidine Skin prep agent dried: Skin prep agent completely dried prior to procedure Sterile barriers: All five maximal sterile barriers used - gloves, gown, cap, mask and large sterile sheet Hand hygiene: Hand hygiene performed prior to central venous catheter insertion Sterile technique: Sterile technique maintained throughout procedure. Site prior to insertion: Ecchymosis Procedure type: Insertion Orientation: left Location: Basilic Catheter type: Double lumen Catheter size: 5 Fr Lot #: [id number] Trimmed at (cm): 46 Inserted at (cm): 46 Ultrasound guidance: Yes Post-procedure: Post-procedure: Antimicrobial dressing applied and securement device Description/Findings: Flushes easily and blood returned Estimated blood loss: < 5 mL Specify complication(s): No apparent complications Follow-up chest x-ray: Ordered [facility] 03-28-2023 Nurse Note Went over discharge instructions, med rec, and prescriptions with pt. Pt verbalized understanding. Wound vac switched to provena. [facility] 03-28-2023 Nurse Note Went over discharge instructions, med rec, and prescriptions with pt. Pt verbalized understanding. Wound vac switched to provena. documented in this encounter [facility] 03-28-2023 Miscellaneous Notes Patient Choice Patient Name: HERI CHOWDHURY Date of : 1970 All Providers Sent Referral Name: [facility] Phone: [phone] Address: [address] [place] [address] Start PACC Note Home Health Referral Educated patient on Home Care and services available. Patient offered choice of available HHC and agreeable to SN services with [facility] - Home Care. Care Types: None Isolation Precautions: No active isolations Social Determinates of Health: Tobacco Use: High Risk (03/24/2023) Patient History Smoking Tobacco Use: Every Day Smokeless Tobacco Use: Current Passive Exposure: Not on file Social History Substance and Sexual Activity Alcohol Use Yes Alcohol/week: 6.0 standard drinks of alcohol Types: 6 Standard drinks or equivalent per week Comment: DAILY HAS 6 DRINKS WHISKEY Social History Substance and Sexual Activity Drug Use Yes Types: Marijuana Comment: ONCE A MONTH Does the patient have any financial resource strain? No Does the patient have any food insecurities? No Does the patient have any housing instabilities? No If any of the above is noted as yes - consider a CITY CARRIER ASSISTANT evaluation once the patient returns home. START PATIENT REGISTRATION INFORMATION Order Information Order Signing Physician: Kendell Griffiths MD Service Ordered RN ?: Yes Service Ordered PT ?: No Service Ordered OT ?: No Service Ordered ST ?: No Service Ordered CITY CARRIER ASSISTANT?:No Service Ordered POULTRY PROCESSOR?: No Following Physician: Rosendo Gross DO Following Physician Overseeing Physician: n/a (Required for Residents only) Agreeable to Follow? Yes Date/Time of Call 03/28/23 2:58 PM, Spoke with: Infectious Disease Care Coordination Same Day SOC?: No Primary Care Physician: Awilda Rodney Primary Care Physician Primary Care Physician Address: [address] [place] [id number] Visit Instructions: N/A Service Discharge Location Type: Home with Home Health Care Service Facility Name: N/A Service Floor Facility: N/A Service Room No: N/A Demographics Patient Last Name: Luciana Patient First Name: Heri Language/Communication Barrier: none Service Address: [address] [place] [address] Service City: [facility] ST: [place] Service ZIP: [address] Service (home) Other phone numbers: Telephone Information: Emergency Contact: Extended Emergency Contact Information Primary Emergency Contact: Ct Wallace Relation: None Admission Information Admit Date: 03/24/2023 Patient status at discharge: Inpatient Admitting Diagnosis Other chronic osteomyelitis, unspecified site (HCC) [M86.60] Displaced comminuted fracture of shaft of left femur, subsequent encounter for closed fracture with malunion [S72.210P] Chronic osteomyelitis of right tibia (CMS/HCC) (HCC) [M86.661] Caregiver Information Caregiver First Name: Ct Caregiver Last Name: Short Caregiver Relationship to Patient girlfriend Caregiver Caregiver Notes: N/A HITECH [employer] HIGHTECH: HI TECH - IV Orders: IV Method of Administration: IM Date and Time of Next Dose Due: 10am day after discharge Infusion Company: [email or web address] Infectious Disease Physician: Rosendo Gross DO Teachable Caregiver Teachable Caregiver First Name: Ct Teachable Caregiver Last Name: Short Teachable Caregiver Relationship to Patient: girlfriend Teachable Caregiver Teachable Caregiver Notes: N/A Teachable Caregiver available for SOC visit?: Yes Teachable Caregiver agreeable to provide skilled HITECH care per physician's orders?: Yes HIGHTECH: HI TECH - DISPOSABLE WOUND VAC Order: Remove prevena vac on 04/07/23. If Prevena vac loses suction or malfunctions, contact physician's office or refer to discharge paperwork for further instructions. Is patient teachable for wet-to-dry dressing change?: Yes Following Physician: Kendell Griffiths MD HIGHTECH: HI TECH - LABS Orders: BMP and hemogram with diff to be drawn weekly. Fax results to [phone]. Following Physician/Facility: DO LUCILA DelunaRevuze: [employer] Reality TECH - PICC CARE Line and Location: Left Basilic Orders: Flush PICC with 10cc NS, administer medication, flush with 10cc NS and end with 5ml heparin flush. Change PICC dressing weekly and PRN. Teachable Caregiver Teachable Caregiver First Name: Ct Teachable Caregiver Last Name: Short Teachable Caregiver Relationship to Patient: girlfriend Teachable Caregiver Teachable Caregiver Notes: N/A Teachable Caregiver available for SOC visit?: Yes Teachable Caregiver agreeable to provide skilled HITECH care per physician's orders?: Yes END PATIENT REGISTRATION INFORMATION Pt Home Health goal home COVID Status 1. Do you have any upper respiratory symptoms (cough, SOB, Fever)? No 2. Have you been exposed to anyone with COVID-19 Virus? No Answer only if pending or positive for COVID-19? 1. Agreeable to wear PPE at each visit? No 2. Is the hospital supplying them with PPE upon Discharge? No Start PACC Summary General Report/ Additional Comments Pt admitted for ortho surgery, removal of hardware, and drainage of abscess. Pt homegoing with IV and wound vac. Agreeable to SN with [facility]. Discharge Date: pending Referral Source-PACC: (Hospital/Unit): H6 / H-6115/H-6115 A End PACC Note From [facility]: [place] BCBS eff: 03/14/2023, Ded: $3200,OOP: $5600, Coinsurance: 80/20%. Pt updated. Problem: Pain - Adult Goal: Verbalizes/displays adequate comfort level or baseline comfort level Outcome: Progressing Flowsheets (Taken 03/24/2023 1527 by Steffi Barroso RN) Verbalizes/displays adequate comfort level or baseline comfort level: Assess pain using appropriate pain scale Implement non-pharmacological measures as appropriate and evaluate response Problem: Safety - Adult Goal: Free from fall injury Outcome: Progressing Flowsheets (Taken 03/24/2023 1527 by Steffi Barroso RN) Free from fall injury: Instruct family/caregiver on patient safety Based on caregiver fall risk screen, instruct family/caregiver to ask for assistance with transferring if caregiver noted to have fall risk factors Images from the original note were not included. Care Management Progress Note Patient remains on H6 s/p R leg hardward removal and I&D 03/24/2023. Prevena wound vac noted. Wound care following. IV Zosyn noted. ID consulted for home going IV ATB. Home care following. Discharge plan is home. TCC to assist and follow as needed. Discharge Milestones and Delays Expected Date/Time: 03/29/2023 Disposition: Home or Self Care Discharge Milestones Place discharge order Complete med reconciliation Case mgmt discharge readiness Clinical Stability Diagnsotic Workup Expected Discharge History Expected Date/Time Set By Reviewed At 03/29/2023 Steffany Montes RN 03/28/2023 8:41 AM 03/27/2023 Tiburcio Camarillo MD 03/26/2023 11:10 AM 03/27/2023 Osmany Driver JD, MD 03/24/2023 12:13 PM 03/27/2023 Osmany Driver JD, MD 03/24/2023 9:22 AM 03/26/2023 Abdoulaye Welsh PA-C 03/24/2023 5:36 AM Length of Stay (Days): 4 GMLOS: No GMLOS Documented Town Clerk following case for Discharge Needs. Referral sent to [facility] for verification of in home infusion benefits The patient is Moderately Stable - Low risk of patient condition declining or worsening The patient's goals for the shift include The clinical goals for the shift include pain score less than 3 Over the shift, the patient did not make progress toward the following goals. Barriers to progression include pain. Recommendations to address these barriers include continue POC. Care Managment Initial Assessment Date: 03/25/2023 Patient Name: Heri Chowdhury : 1970 Patient Information Source of Information: Patient Cognition/Language: WFL - Within Functional Limits Permission given to speak with patient promotional representative/caregiver as indicated: Yes Confirmation of Payer with patient/family: Yes Payer Name: Alexandria Lira : Confirmation of Primary Care Physician: Confirmed PCP Name: Awilda Rodney Seen in last 2 years?: Yes Primary Caregiver: Spouse/significant other If assistance needed, confirmed caregiver ready, willing and able to care for patient at discharge: Yes Confirmed with: Ct Wallace, significant other Living Arrangements Current Residence: House Number of Floors 2 (live downstairs) Number of Entry Steps: 3 Bed/Bath Levels: Both first floor Facility: Facility Name: Plan to Return: Lives with: Spouse/significant other Support Systems: Spouse/significant other Activities of Daily Living Ambulation: Independent Bathing/Dressing: Independent Elimination/Continence/Toileting: Independent Feeding: Independent Who Assists with Activities of Daily Living: Instrumental Activities of Daily Living Prescription Coverage: Yes Pharmacy Used: [facility] Medication Management: Independent Transportation/Shopping: Independent Transportation Mode: Car Needs Assistance with Transportation at Discharge: No Meal Preparation: Independent Laundry/Cleaning: Independent Finances/Bill Paying: Independent Communication: Independent Types of Care Services/Equipment Utilized Care Services: Dialysis Type: Durable Medical Equipment: Cane, Walker, Rollator Patient's Goal/Discharge Plan Patient expects to be discharged to: home Discharge Planning Actions: Continue to follow Patient's Choice Rights and [employer] and Collaborative Relationships Disclosed as Indicated for Post-Acute Care: Interdisciplinary Team Engagement: Social Work Referral for: Additional Information: Patient admitted to H6 R leg hardward removal and I&D 03/24/2023. Prevena wound vac noted. Wound care following. IV Zosyn and Vanc noted. Met with pt at bedside, introduced self and explained role of TCC. Pt has insurance with RX coverage, active with PCP. Ct, significant other present in room. Lives in a home with significant other. Prevena wound vac portable for discharge per wound care. ID consulted for home going ATB recommendation. Secure message [facility] liaison Gamal regarding home care. Discharge plan is home. Patient is agreeable to home care. TCC to assist and follow as needed. Steffany Montes RN Problem: Pain - Adult Goal: Verbalizes/displays adequate comfort level or baseline comfort level Outcome: Progressing Flowsheets (Taken 03/24/2023 1527) Verbalizes/displays adequate comfort level or baseline comfort level: Assess pain using appropriate pain scale Implement non-pharmacological measures as appropriate and evaluate response Problem: Safety - Adult Goal: Free from fall injury Outcome: Progressing Flowsheets (Taken 03/24/2023 1527) Free from fall injury: Instruct family/caregiver on patient safety Based on caregiver fall risk screen, instruct family/caregiver to ask for assistance with transferring infant if caregiver noted to have fall risk factors Report called to BALJIT Andrews Family at bedside BREAKFAST TRAY ORDERED FOR PATIENT PER HIS CHOICES Patient family/visitor updated by RN at this time. [facility] [address] [facility] [address] Dept: [phone] Loc: [phone] Operative Report Patient Name: Heri Chowdhury Date of : 1970 Date of Surgery: 03/24/23 Pre-operative diagnosis: Right tibial plateau fracture with infected hardware and multiple draining sinus tracts Post-operative diagnosis: Same Procedure(s): Removal deep hardware right tibia Incision and drainage of multiple abscesses including skin, subcutaneous tissues, and bone Surgeon: Kendell Griffiths M.D. Produce Field Merchandiser(s): Osmany Driver M.D. and Max Argueta M.D. Anesthesia: General EBL: 50 cc IVF: Crystalloid Specimen: Fluid and/or tissue sent for culture Clinical History/Indication for Surgery The patient is a 52 y.o. year old male who was presents for hardware removal and debridement of right lower extremity infected hardware. Patient has history of remote ORIF at outside facility present with multiple draining abscesses and sinus tracts related to his tibial plateau fixation. Of note patient also has a symptomatic left femoral malunion and he was counseled that we would need to get his infection of his right leg controlled prior to proceeding with correction of this deformity.. Typical indications for surgery were reviewed and operative treatment was recommended. Risks of surgery in general were reviewed including, but not limited to, persistent infection, need for additional procedures, poor wound healing, damage to normal structures as well as medical complications such as [place], stroke, PE, DVT, and even . Specific indications and/or risks of this procedure were discussed as well including, but not limited to: Potential need for coverage by plastic surgery, need for PICC line antibiotics. Pt was given opportunity to ask questions and consider his options. He ultimately elected to proceed with surgery. No guarantees were given or implied. Operative Narration The patient was identified in the pre-operative holding area. The surgical site was identified and marked. Informed consent was obtained. The patient was then brought to the operating room and placed supine on the operating table. Anesthesia was administered and care of the head, neck, and airway was maintained by the anesthesia staff throughout the entire procedure. All bony prominences were identified and padded. A tourniquet was applied to the operative extremity which was then prepped and draped in the usual sterile fashion. A surgical timeout was performed. Preoperative antibiotics were held for cultures. After exsanguination the tourniquet was inflated. A portion of his previous lateral incision was opened to expose the proximal hardware. There is thick copious scar between skin and plate which was incised and reflected using Bovie. All the proximal screws were removed. This incision was extended slightly anteriorly to excise the draining sinus directly over the anterior tibia to also expose the anterior to posterior lag screw. The leg screw was removed without difficulty. Each of the 3 shaft screws in the plate were localized using fluoroscopy and small stab incisions were made to allow removal. The medial leg had 2 separate draining sinuses. 1 of which directly communicated to the healed fracture site. This was excised and tissue sent for specimen. This was traced directly to the medial aspect of the previous fracture site. There was a hole communicating with the canal of the tibia which was aggressively curetted with tissue sent for specimen. There is 1 additional small area of purulent drainage more distal and medial near a previous skin grafting. This was also excised and seem to track towards the posterior aspect of the tibia although we could not trace in identify any grossly necrotic or purulent tissue deep to the subcutaneous layer. After excisional debridement was completed which included skin, subcutaneous tissues, muscle, and bone, copious irrigation was performed using gravity fed lavage. Each screw hole was irrigated using a Angiocath and syringe. Stimulant cement pellets were created using vancomycin powder and these were placed within the tibial fracture site through the medial hole as well as through the lateral holes of the proximal tibia. X-ray confirmed successful removal hardware and placement of the antibiotic pellets. Closure was then performed in layers. The medial wound was closed using retention sutures in standard sutures. The skin did approximate was relatively tight. Because of this incisional wound vacs were applied over all incisions and this obtained excellent seal. Once the patient was awakened from anesthesia, they were transported to the PACU in stable condition, having tolerated surgery well with no immediate complications. Postoperative Plan Weightbearing as tolerated Empiric antibiotics Infectious disease consult This operative report was prepared and signed by Kendell Griffiths MD at 03/24/23, 11:55 AM Date: 03/24/2023 Location: [facility] OR Name: Heri Chowdhury, : 1970, Diagnosis Pre-op Diagnosis * Other chronic osteomyelitis, unspecified site (HCC) [M86.60] * Displaced comminuted fracture of shaft of left femur, subsequent encounter for closed fracture with malunion [S72.352P] Post-op Diagnosis * Other chronic osteomyelitis, unspecified site (HCC) [M86.60] * Displaced comminuted fracture of shaft of left femur, subsequent encounter for closed fracture with malunion [S72.352P] Procedures HOLD ANTIBIOTICS FOR CULTURES, REMOVAL LATERAL TIBIAL PLATEAU PLATE, INCISION AND DRAINAGE OF DEEP RIGHT LEG ABSCESS, POSSIBLE APPLICATION WOUND VAC 24594 - TN REMOVAL IMPLANT DEEP INCISION AND DRAINAGE LEG OR ANKLE DEEP ABSCESS OR HEMATOMA 90908 - TN INCISION & DRAINAGE LEG/ANKLE ABSCESS/HEMATOMA Surgeons * Kendell Griffiths - Primary Procedure Summary Anesthesia: General ASA: II Estimated Blood Loss: <50cc Drains: * None in log * Specimens ID Source Type Tests Collected By Collected At Frozen? Priority Lab ID A Leg, Right Swab AEROBIC AND ANAEROBIC CULTURE WITH STAIN Kendell Griffiths MD 03/24/23 0748 Routine [id number], [id number] Description: RIGHT LEG ABSESS B Leg, Right Tissue AEROBIC AND ANAEROBIC CULTURE WITH STAIN Kendell Griffiths MD 03/24/23 0815 Routine [id number], [id number] Description: RIGHT LEG ABSESS #2 C Leg, Right Tissue AEROBIC AND ANAEROBIC CULTURE WITH STAIN Kendell Griffiths MD 03/24/23 0819 Routine [id number], [id number] Description: RIGHT LEG ABSESS #3 Implants Type Name Action Serial No. [employer] Bone GRAFT BONE RAPID 10CC STIMULAN - [id number] Implanted Staff: Laborer Cutting Tool: Rancho Lyman RN Scrub Person: Malachi Moscoso RN Findings: see detailed op report Complications: None; patient tolerated the procedure well. Specimens Collected: Order Name Source Comment Collection Info Order Time AEROBIC AND ANAEROBIC CULTURE WITH STAIN Leg, Right Pre-op diagnosis: Other chronic osteomyelitis, unspecified site (HCC) [M86.60] Displaced comminuted fracture of shaft of left femur, subsequent encounter for closed fracture with malunion [S72.352P] Collected By: Kendell Griffiths MD 03/24/2023 7:49 AM AEROBIC AND ANAEROBIC CULTURE WITH STAIN Leg, Right Pre-op diagnosis: Other chronic osteomyelitis, unspecified site (HCC) [M86.60] Displaced comminuted fracture of shaft of left femur, subsequent encounter for closed fracture with malunion [S72.352P] Collected By: Kendell Griffiths MD 03/24/2023 8:18 AM AEROBIC AND ANAEROBIC CULTURE WITH STAIN Leg, Right Pre-op diagnosis: Other chronic osteomyelitis, unspecified site (HCC) [M86.60] Displaced comminuted fracture of shaft of left femur, subsequent encounter for closed fracture with malunion [S72.352P] Collected By: Kendell Griffiths MD 03/24/2023 8:19 AM POTASSIUM WITH MG REFLEX For patients on dialysis to draw potassium day of surgery 03/24/2023 5:36 AM PROTHROMBIN TIME If patient on coumadin within 4 days prior. 03/24/2023 5:36 AM Blood Products: None Prophylactic Antibiotics: Procedure appropriate prophylactic antibiotic(s) given within 1 hour of surgical incision (two hours if receiving Vancomycin or flouroquinolone) Plan: WBAT No plans for further surgical intervention this admission Activity as tolerated PTOT CIWA protocol Medicine c/s APS c/s for postop pain control ID c/s Abx per ID Intra-op cx p Elevate op extremity CBC x2 Dressing: prevena - switch to portable prevena @dc Skin checks DVT ppx: ASA 81mg daily Pain, medical management per primary F/u with Dr. Griffiths in 2 weeks Admit to ortho documented in this encounter [facility] [employer] 03-28-2023 Note Formatting of this n ote might be different from the original. Patient Choice Patient Name: HERI CHOWDHURY Date of : 1970 All Providers Sent Referral Name: [facility] Phone: [phone] Address: [address] [place] [address] [facility] 03-28-2023 Note Formatting of this n ote might be different from the original. 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 He underwent removal of hardware and I&D of multiple abscesses including skin, subcutaneous tissues and bone during this admission. Orthopedic managing, ID on board for IV antibiotics. Medicine consulted for medical management. Interval History: No new complaints. Remains afebrile. Ambulating around room. Awaiting coordination of home abx. Adult diet Regular 24HR INTAKE/OUTPUT: Intake/Output Summary (Last 24 hours) at 03/28/2023 1501 Last data filed at 03/28/2023 0543 Gross per 24 hour Intake 600 ml Output 750 ml Net -150 ml Past Medical History: Past Medical History: Diagnosis Date GERD (gastroesophageal reflux disease) LABS: CBC: Recent Labs 03/26/23406 WBC 6.1 RBC 3.40* HGB 11.3* HCT 34.5* MCV 101.4* RDW 14.9* PLT 253 BMP: Recent Labs 03/26/23 0407 03/27/23 0315 03/28/23 0406 NA 135 136 134* K 4.6 4.3 4.3 CL 106 107 105 CO2 24 22 23 BUN 25* 26* 20 CREATININE 0.75 0.77 0.63* GLUCOSE 101* 99 103* CALCIUM 8.9 8.8 9.1 ANIONGAP 5 7 6 LIVER PROFILE:No results for input(s): AST , ALT , BILITOT , ALKPHOS , PROT in the last 72 hours. No lab exists for component: LABALBU PT/INR: No results for input(s): PROTIME , INR in the last 72 hours. CARDIAC ENZYMES: No results for input(s): TROPONINI in the last 72 hours. Procalcitonin: No results found for: PROCAL COVID-19 PCR: No results for input(s): COVID19 in the last 72 hours. Objective: Vitals: BP 117/78 (BP Location: Right arm, Patient Position: Lying) Pulse 97 Temp 36.6 ?C (97.9 ?F) (Temporal) Resp 16 Ht 5' 9.5 (1.765 m) Wt 160 lb (72.6 kg) SpO2 99% BMI 23.29 kg/m? Pulse Ox: SpO2 Av.5 % Min: 99 % Max: 100 % Supplemental O2: O2 Flow Rate (L/min): 2 L/min Physical Exam Vitals and nursing note reviewed. Constitutional: Appearance: Normal appearance. Cardiovascular: Rate and Rhythm: Normal rate. Pulmonary: Effort: Pulmonary effort is normal. Abdominal: General: Abdomen is flat. Musculoskeletal: Comments: RLE wrapped. Wound VAC in place Neurological: Mental Status: He is alert. Psychiatric: Mood and Affect: Mood normal. Behavior: Behavior normal. 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 TURNER 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 Patient offered choice of available HHC and agreeable to SN services with [facility]. Care Types: None Isolation Precautions: No active isolations Social Determinates of Health: Tobacco Use: High Risk (03/24/2023) Patient History Smoking Tobacco Use: Every Day Smokeless Tobacco Use: Current Passive Exposure: Not on file Social History Substance and Sexual Activity Alcohol Use Yes Alcohol/week: 6.0 standard drinks of alcohol Types: 6 Standard drinks or equivalent per week Comment: DAILY HAS 6 DRINKS WHISKEY Social History Substance and Sexual Activity Drug Use Yes Types: Marijuana Comment: ONCE A MONTH Does the patient have any financial resource strain? No Does the patient have any food insecurities? No Does the patient have any housing instabilities? No If any of the above is noted as yes - consider a CITY CARRIER ASSISTANT evaluation once the patient returns home. START PATIENT REGISTRATION INFORMATION Order Information Order Signing Physician: Kendell Griffiths MD Service Ordered RN ?: Yes Service Ordered PT ?: No Service Ordered OT ?: No Service Ordered ST ?: No Service Ordered CITY CARRIER ASSISTANT?:No Service Ordered POULTRY PROCESSOR?: No Following Physician: Rosendo Gross DO Following Physician Overseeing Physician: n/a (Required for Residents only) Agreeable to Follow? Yes Date/Time of Call 03/28/23 2:58 PM, Spoke with: Infectious Disease Care Coordination Same Day SOC?: No Primary Care Physician: Awilda Rodney Primary Care Physician Primary Care Physician Address: [address] [place], [place] [id number] Visit Instructions: N/A Service Discharge Location Type: Home with Home Health Care Service Facility Name: N/A Service Floor Facility: N/A Service Room No: N/A Demographics Patient Last Name: Luciana Patient First Name: Heri Language/Communication Barrier: none Service Address: [address] [place] [address] City: [facility] ST: [place] Service ZIP: [address] Service (home) Other phone numbers: Telephone Information: Emergency Contact: Extended Emergency Contact Information Primary Emergency Contact: Ct Wallace Relation: None Admission Information Admit Date: 03/24/2023 Patient status at discharge: Inpatient Admitting Diagnosis Other chronic osteomyelitis, unspecified site ([facility]) [M86.60] Displaced comminuted fracture of shaft of left femur, subsequent encounter for closed fracture with malunion [S72.352P] Chronic osteomyelitis of right tibia (CMS/HCC) ([facility]) [M86.661] Caregiver Information Caregiver First Name: Ct Caregiver Last Name: Madison Caregiver Relationship to Patient girlfriend Caregiver Caregiver Notes: N/A [employer] HIGHTECH: HI TECH - IV Orders: IV Method of Administration: IM Date and Time of Next Dose Due: 10am day after discharge Infusion Company: [employer] [facility] Infectious Disease Physician: Rosendo Gross DO Teachable Caregiver Teachable Caregiver First Name: Ct Teachable Caregiver Last Name: Short Teachable Caregiver Relationship to Patient: kathy Teachable Caregiver Teachable Caregiver Notes: N/A Teachable Caregiver available for SOC visit?: Yes Teachable Caregiver agreeable to provide skilled HITECH care per physician's orders?: Yes HIGHTECH: HI TECH - DISPOSABLE WOUND VAC Order: Remove prevena vac on 04/07/23. If Prevena vac loses suction or malfunctions, contact physician's office or refer to discharge paperwork for further instructions. Is patient teachable for wet-to-dry dressing change?: Yes Following Physician: Kendell Griffiths MD HIGHTECH: HI TECH - LABS Orders: BMP and hemogram with diff to be drawn weekly. Fax results to [phone]. Following Physician/Facility: DO LUCILA DelunaTECH: HI TECH - PICC CARE Line and Location: Left Basilic Orders: Flush PICC with 10cc NS, administer medication, flush with 10cc NS and end with 5ml heparin flush. Change PICC dressing weekly and PRN. Teachable Caregiver Teachable Caregiver First Name: Ct Dunlapable Caregiver Last Name: Short Teachable Caregiver Relationship to Patient: kathy Teachable Caregiver Teachable Caregiver Notes: N/A Teachable Caregiver available for SOC visit?: Yes Teachable Caregiver agreeable to provide skilled HITECH care per physician's orders?: Yes END PATIENT REGISTRATION INFORMATION Pt Home Health goal home COVID Status 1. Do you have any upper respiratory symptoms (cough, SOB, Fever)? No 2. Have you been exposed to anyone with COVID-19 Virus? No Answer only if pending or positive for COVID-19? 1. Agreeable to wear PPE at each visit? No 2. Is the hospital supplying them with PPE up (more content not included)... [facility] 03-28-2023 Note Orthopedic Surgery p rogress Note Discussed patient with Dr. Gross (ID). Plan for 6 weeks of IV cefepime at md. Awaiting final approval via correctional casework specialist prior to md. PICC also pending Okay for dc per correctional casework specialist. PICC in place. DC active to home [facility] 03-28-2023 Note [facility] - Infectious Diseases Attending Progress Note Reason for Consult-RLE OM d/t PsA Subjective- Covering for Dr. Downing. Pt ambulating in room w/ the assistance of a walker. Feeling well today, no new complaints. Wound VAC on RLE is in place; denies any pain/drainage from the area. Tolerating regular diet. Reports ongoing chronic L knee pain, unchanged from baseline. No further complaints. Interval Events/Data- Vitals- WNL Labs- No CBC from today ABX- IV piperacillin/tazobactam Micro- RLE tissue CX + for PsA Disposition- Home later today CODE- Full Objective- Vitals- Patient Vitals for the past 24 hrs: BP Temp Temp src Pulse Resp SpO2 03/28/23 0912 117/78 36.6 ?C (97.9 ?F) Temporal 97 16 99 % 03/27/23 2139 129/81 37.2 ?C (99 ?F) Temporal 69 16 100 % Physical Exam- General- Middle-aged M; BMI 23.2; appears stated age, no apparent distress HEENT- Atraumatic, normocephalic, PERRLA, EOMI, no scleral icterus, mucous membranes moist Neck- Supple, trachea midline Chest- Symmetric chest wall rise, no visible deformities Cardiac- RRR, +S1/S2, no audible murmurs Lungs- CTAB; no wheezes, rales, rhonchi Abdomen- Soft, non-tender, non-distended Extremities- +RLE wound VAC over anterior tibia w/o visible erythema or bleeding, +LUE PICC Skin- Dry, intact; no visible rashes or lesions Neuro- No focal deficits Psych- Normal affect and mood Labs- Lab Results Component Value Date/Time NA 134 (L) 03/28/2023 0406 K 4.3 03/28/2023 0406 CL 105 03/28/2023 0406 CO2 23 03/28/2023 0406 BUN 20 03/28/2023 0406 CREATININE 0.63 (L) 03/28/2023 0406 GLUCOSE 103 (H) 03/28/2023 0406 CALCIUM 9.1 03/28/2023 0406 Lab Results Component Value Date/Time WBC 6.1 03/26/2023 0407 HGB 11.3 (L) 03/26/2023 0407 HCT 34.5 (L) 03/26/2023 0407 PLT 253 03/26/2023 040 LYMPHOPCT 17.8 (L) 03/26/2023 040 MONOPCT 7.8 03/26/2023 040 BASOPCT 1.1 03/26/2023 040 NEUTROABS 4.4 03/26/2023 0407 Micro- 03/24 RLE wound CX + for PsA 03/24 RLE tissue CX + for PsA Lines/Drains/Airways- 03/24 LUE PIV Radiography/Echo/Other- None Antimicrobials, Start/End Dates- 03/24 cefazolin 03/24-03/26 vancomycin 03/24-03/28 piperacillin/tazobactam 03/28-cefepime History of Present Illness- Mr. Chowdhury is a 52 y/o M w/ PMH of R tibia fracture s/p ORIF 1997, RLE chronic tibial OM c/b hardware (on suppressive cephalexin + TMP/SMX), draining sinus tracts x 3, L femur fx at age 14 c/b malunion, GERD. [place] [facility] [place] 27 [place] b/l LE compound fx's requiring plates, grafts, flap closures. In 04/2018, area spontaneously opened; self tx'd w/ OTC antibiotic ointment + peroxide x2mo; dx'd w/ OM of prox tibial shaft 06/21/18; tx'd w/ PO cephalexin + TMP/SMX. Admitted 03/24 for hardware removal; s/p I+D multiple abscesses; CX + for PsA. The ID service is following for RLE OM d/t PsA. Impression- RLE chronic tibial OM c/b hardware, draining sinus tracts x 3- Admitted to ortho service 03/24; s/p R tibia deep hardware removal, I+D multiple abscesses including skin, SQ tissues, and bone. CXs + for PsA. Will de-escalate to cefepime and tx for 6w via PICC, end date 05/05/23. H/o L femur fracture at age 14 c/b malunion H/o open R tibia fracture s/p ORIF 1997 GERD Plan- Stop piperacillin/tazobactam Start IV cefepime PICC line placed OPAT written; will be scanned into chart under media tab Duration will be 6w total, end date 05/05/23 ID will continue to follow. Based on diagnoses and management, combination of acute and chronic problems, exacerbations and/or acuity, this visit should be considered to be of moderate complexity. Rosendo Gross DO [facility] Infectious Diseases Office Tel. [phone] [facility] 03-28-2023 Procedure note Associated Ord er(s): PICC Insertion/Replacement Post-Procedure Diagnose(s): Osteomyelitis of right lower extremity (HCC); exterminator (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 PICC Insertion/Replacement Date/Time: 03/28/2023 3:30 PM Performed by: Olena Nassar MD Authorized by: Olena Nassar MD Consent: The indications, risks, benefits, alternatives to the procedure were explained to the patient/surrogate decision maker and their questions answered. Consent was obtained to proceed with the procedure. Timeout: Completed immediately prior to the start of the procedure which included verification of the correct patient, correct site and agreement on the procedure to be done. Indications: Indications: Long-term antibiotics and other (see comment) Indications comment: RLE OM d/t PsA Anesthetic: Local anesthetic used: lidocaine without epinephrine Procedure details: Preparation: Skin prepped with chlorhexidine Skin prep agent dried: Skin prep agent completely dried prior to procedure Sterile barriers: All five maximal sterile barriers used - gloves, gown, cap, mask and large sterile sheet Hand hygiene: Hand hygiene performed prior to central venous catheter insertion Sterile technique: Sterile technique maintained throughout procedure. Site prior to insertion: Ecchymosis Procedure type: Insertion Orientation: left Location: Basilic Catheter type: Double lumen Catheter size: 5 Fr Lot #: [id number] Trimmed at (cm): 46 Inserted at (cm): 46 Ultrasound guidance: Yes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 patient into [facility]. Continue current dosing at this time. Level due tomorrow 03/26 with AM labs. Will follow. Note serum creatinine trend, continue to monitor renal function. DATE: 03/25/23 Time: 7:58 AM Brenda Call PharmD Available via Secure [email or web address] Images from the original note were not included. [facility] PCU H[address] [facility] [address] Dept: [phone] Adult Orthopaedic Service Patient Name: Heri Chowdhury Date of : 1970 Date: 03/25/23 Subjective: NAEON, patient is doing well, their pain is controlled, block intact. They have been out of bed, have had a BM, have urinated. They deny headache, nausea, vomiting, chest pain, shortness of breath, fevers, chills, new numbness, new tingling, new weakness, no concerns or questions. Medications: acetaminophen, 650 mg, Oral, Q4H aspirin, 81 mg, Oral, Daily folic acid, 1 mg, Oral, Daily gabapentin, 300 mg, Oral, Nightly Lidocaine, 1 patch, Topical, Daily piperacillin-tazobactam, 3,375 mg, IntraVENous, q8h thiamine, 100 mg, Oral, Daily vancomycin, 15 mg/kg, IntraVENous, q12h Physical Exam: Vitals: 03/25/23 0444 BP: 121/74 Pulse: 73 Resp: 16 Temp: 36.8 C (98.2 F) SpO2: 98% Intake and Output Summary (Last 24 hours) at Date Time Intake/Output Summary (Last 24 hours) at 03/25/2023 0623 Last data filed at 03/25/2023 0449 Gross per 24 hour Intake 969.49 ml Output 525 ml Net 444.49 ml Right Lower Extremity: Vac to suction, good seal +SILT Arevalo/Sa/SP/DP/Tib distributions to pressure +DF/EHL/PF motor function out, no toe wiggle DP palpable Negative Eric's sign, no calf tenderness Labs: CBC: Lab Results Component Value Date WBC 8.3 03/25/2023 HGB 11.0 (L) 03/25/2023 HCT 33.4 (L) 03/25/2023 PLT 253 03/25/2023 BMP: Lab Results Component Value Date NA 134 (L) 03/25/2023 K 4.6 03/25/2023 CL 106 03/25/2023 CO2 23 03/25/2023 BUN 23 (H) 03/25/2023 CREATININE 0.70 03/25/2023 CALCIUM 9.0 03/25/2023 GLUCOSE 146 (H) 03/25/2023 PT/INR: Lab Results Component Value Date PROTIME 10.0 03/25/2023 INR 0.9 03/25/2023 APTT: No results found for: APTT Type and Screen: No results found for: RH , LABANTI ETHANOL: No results found for: ETOH DRUG SCREEN: No results found for: BARBITURATES , BENZOURQL , COCAINESCRN , METHADU , OPIAU , PCPURINE CRP: No results found for: CRP ESR: No results found for: SEDRATE Rads: Radiological Procedure reviewed. Assessment: 52 y.o. male with Right tibial plateau fracture with infected hardware and multiple draining sinus tracts s/p I&D with ANU and wound vac application Plan: WBAT No plans for further surgical intervention this admission Activity as tolerated PTOT CIWA protocol Medicine c/s APS c/s for postop pain control ID c/s Abx per ID Intra-op cx: NGTD Elevate op extremity CBC x2 Dressing: prevena - switch to portable prevena @dc Skin checks DVT ppx: ASA 81mg daily Pain, medical management per primary F/u with Dr. Griffiths in 2 weeks Admitted to ortho Max Argueta MD Orthopaedic Surgery, PGY-2 03/25/2023 6:26 AM Images from the original note were not included. Pharmacy Managed Vancomycin Dosing Service Consult Note Consult Date: 03/24/23 Patient Name: Heri Chowdhury Allergies: Codeine, Diazepam, and Morphine Age: 52 y.o. Sex: male Ht: Height: 176.5 cm (5' 9.5 ) TBW: Weight: 72.6 kg (160 lb) BMI: Body mass index is 23.29 kg/m . DW: 72.6 kg No results found for: CREATININE , BUN , WBC , CRCLEARANCE Calculated CrCl: -- Consulted By: Osmany Driver JD, MD Random: --- Infectious Diagnosis: Surgical site infection (AUC Goal 400-600 mg/L*hr) Antimicrobials: Patient recently received an antibiotic (last 12 hours) Date/Time Action Medication Dose 03/24/23 0830 Given ceFAZolin in dextrose 4% (Ancef) IVPB 2,000 mg 2,000 mg Assessment/Plan: Start Vancomycin 1000 mg Q 12 hours based on patient age, weight, renal function, and infectious diagnosis (14 mg/kg). As the patient has no recent SCr, cannot use InsightRx at this time. Labs are ordered for tomorrow AM 03/25. Will follow up at that time to enter into Insight[facility]. Will assess random level on 03/26 with AM labs and adjust as appropriate. Trend serum creatinine. Orders placed. Thank you for this consult. Please page/call with questions. DATE: 03/24/23 Time: 1:52 PM Brenda Call PharmD Available via Secure [email or web address] documented in this encounter [facility] 03-28-2023 Note Formatting of this n ote is different from the original. Start PACC Note Home Health Referral Educated patient on Home Care and services available. Patient offered choice of available HHC and agreeable to SN services with [facility]. Care Types: None Isolation Precautions: No active isolations Social Determinates of Health: Tobacco Use: High Risk (03/24/2023) Patient History Smoking Tobacco Use: Every Day Smokeless Tobacco Use: Current Passive Exposure: Not on file Social History Substance and Sexual Activity Alcohol Use Yes Alcohol/week: 6.0 standard drinks of alcohol Types: 6 Standard drinks or equivalent per week Comment: DAILY HAS 6 DRINKS WHISKEY Social History Substance and Sexual Activity Drug Use Yes Types: Marijuana Comment: ONCE A MONTH Does the patient have any financial resource strain? No Does the patient have any food insecurities? No Does the patient have any housing instabilities? No If any of the above is noted as yes - consider a CITY CARRIER ASSISTANT evaluation once the patient returns home. START PATIENT REGISTRATION INFORMATION Order Information Order Signing Physician: Kendell Griffiths MD Service Ordered RN ?: Yes Service Ordered PT ?: No Service Ordered OT ?: No Service Ordered ST ?: No Service Ordered CITY CARRIER ASSISTANT?:No Service Ordered POULTRY PROCESSOR?: No Following Physician: Rosendo Gross DO Following Physician Overseeing Physician: n/a (Required for Residents only) Agreeable to Follow? Yes Date/Time of Call 03/28/23 2:58 PM, Spoke with: Infectious Disease Care Coordination Same Day SOC?: No Primary Care Physician: Awilda Rodney Primary Care Physician Primary Care Physician Address: [address] [place] [address] / [facility] [id number] Visit Instructions: N/A Service Discharge Location Type: Home with Home Health Care Service Facility Name: N/A Service Floor Facility: N/A Service Room No: N/A Demographics Patient Last Name: Luciana Patient First Name: Heri Language/Communication Barrier: none Service Address: [address] [place] [address] Service City: [facility] ST: [place] Service ZIP: [address] Service (home) Other phone numbers: Telephone Information: Emergency Contact: Extended Emergency Contact Information Primary Emergency Contact: Ct Wallace Relation: None Admission Information Admit Date: 03/24/2023 Patient status at discharge: Inpatient Admitting Diagnosis Other chronic osteomyelitis, unspecified site ([facility]) [M86.60] Displaced comminuted fracture of shaft of left femur, subsequent encounter for closed fracture with malunion [S72.352P] Chronic osteomyelitis of right tibia (CMS/HCC) ([facility]) [M86.661] Caregiver Information Caregiver First Name: Ct Caregiver Last Name: Madison Caregiver Relationship to Patient girlfriend Caregiver Caregiver Notes: N/A HITECH [employer] List HIGHTECH: HI TECH - IV Orders: IV Method of Administration: IM Date and Time of Next Dose Due: 10am day after discharge Infusion Company: [email or web address] [facility] Infectious Disease Physician: Rosendo Gross DO Teachable Caregiver Teachable Caregiver First Name: Ct Teachable Caregiver Last Name: Short Teachable Caregiver Relationship to Patient: girlfriend Teachable Caregiver Teachable Caregiver Notes: N/A Teachable Caregiver available for SOC visit?: Yes Teachable Caregiver agreeable to provide skilled HITECH care per physician's orders?: Yes HIGHTECH: [employer] TECH - DISPOSABLE WOUND VAC Order: Remove prevena vac on 04/07/23. If Prevena vac loses suction or malfunctions, contact physician's office or refer to discharge paperwork for further instructions. Is patient teachable for wet-to-dry dressing change?: Yes Following Physician: Kendell Griffiths MD HIGHTECH: HI TECH - LABS Orders: BMP and hemogram with diff to be drawn weekly. Fax results to [phone]. Following Physician/Facility: Rosendo Gross DO HIGHTECH: [employer] TECH - PICC CARE Line and Location: Left Basilic Orders: Flush PICC with 10cc NS, administer medication, flush with 10cc NS and end with 5ml heparin flush. Change PICC dressing weekly and PRN. Teachable Caregiver Teachable Caregiver First Name: Ct Teachable Caregiver Last Name: Madison Teachable Caregiver Relationship to Patient: kathy Teachable Caregiver Teachable Caregiver Notes: N/A Teachable Caregiver available for SOC visit?: Yes Teachable Caregiver agreeable to provide skilled HITECH care per physician's orders?: Yes END PATIENT REGISTRATION INFORMATION Pt Home Health goal home COVID Status 1. Do you have any upper respiratory symptoms (cough, SOB, Fever)? No 2. Have you been exposed to anyone with COVID-19 Virus? No Answer only if pending or positive for COVID-19? 1. Agreeable to wear PPE at each visit? No 2. Is the hospital supplying them with PPE upon Discharge? No Start PACC Summary General Report/ Additional Comments Pt admitted for ortho surgery, removal of hardware, and drainage of abscess. Pt homegoing with IV and wound vac. Agreeable to SN with [facility]. Discharge Date: pending Referral Source-PACC: (Hospital/Unit): H6 / H-[id number]/H-[id number] A End PACC Note [employer] [facility] 03-28-2023 Note Formatting of this n ote is different from the original. Start PACC Note Home Health Referral Educated patient on Home Care and services available. Patient offered choice of available HHC and agreeable to SN services with [facility]. Care Types: None Isolation Precautions: No active isolations Social Determinates of Health: Tobacco Use: High Risk (03/24/2023) Patient History Smoking Tobacco Use: Every Day Smokeless Tobacco Use: Current Passive Exposure: Not on file Social History Substance and Sexual Activity Alcohol Use Yes Alcohol/week: 6.0 standard drinks of alcohol Types: 6 Standard drinks or equivalent per week Comment: DAILY HAS 6 DRINKS WHISKEY Social History Substance and Sexual Activity Drug Use Yes Types: Marijuana Comment: ONCE A MONTH Does the patient have any financial resource strain? No Does the patient have any food insecurities? No Does the patient have any housing instabilities? No If any of the above is noted as yes - consider a CITY CARRIER ASSISTANT evaluation once the patient returns home. START PATIENT REGISTRATION INFORMATION Order Information Order Signing Physician: Kendell Griffiths MD Service Ordered RN ?: Yes Service Ordered PT ?: No Service Ordered OT ?: No Service Ordered ST ?: No Service Ordered CITY CARRIER ASSISTANT?:No Service Ordered POULTRY PROCESSOR?: No Following Physician: Rosendo Gross DO Following Physician Overseeing Physician: n/a (Required for Residents only) Agreeable to Follow? Yes Date/Time of Call 03/28/23 2:58 PM, Spoke with: Infectious Disease Care Coordination Same Day SOC?: No Primary Care Physician: Awilda Rodney Primary Care Physician Primary Care Physician Address: [address] [place] [address] / [facility] [address] Visit Instructions: N/A Service Discharge Location Type: Home with Home Health Care Service Facility Name: N/A Service Floor Facility: N/A Service Room No: N/A Demographics Patient Last Name: Luciana Patient First Name: Heri Language/Communication Barrier: none Service Address: [address] [place] [address] City: [facility] ST: [place] Service ZIP: [address] Service (home) Other phone numbers: Telephone Information: Emergency Contact: Extended Emergency Contact Information Primary Emergency Contact: Ct Wallace Relation: None Admission Information Admit Date: 03/24/2023 Patient status at discharge: Inpatient Admitting Diagnosis Other chronic osteomyelitis, unspecified site (HCC) [M86.60] Displaced comminuted fracture of shaft of left femur, subsequent encounter for closed fracture with malunion [S72.352P] Chronic osteomyelitis of right tibia (CMS/HCC) ([facility]) [M86.661] Caregiver Information Caregiver First Name: Ct Caregiver Last Name: Madison Caregiver Relationship to Patient girlfriend Caregiver Caregiver Notes: N/A HITECH [employer] List HIGHTECH: HI TECH - IV Orders: IV Method of Administration: IM Date and Time of Next Dose Due: 10am day after discharge Infusion Company: [email or web address] [facility] Infectious Disease Physician: Rosendo Gross DO Teachable Caregiver Teachable Caregiver First Name: Ct Teachmonica Caregiver Last Name: Madison Teachable Caregiver Relationship to Patient: girlfriend Teachable Caregiver Teachable Caregiver Notes: N/A Teachable Caregiver available for SOC visit?: Yes Teachable Caregiver agreeable to provide skilled HITECH care per physician's orders?: Yes HIGHTECH: HI TECH - DISPOSABLE WOUND VAC Order: Remove prevena vac on 04/07/23. If Prevena vac loses suction or malfunctions, contact physician's office or refer to discharge paperwork for further instructions. Is patient teachable for wet-to-dry dressing change?: Yes Following Physician: Kendell Griffiths MD HIGHTECH: HI TECH - LABS Orders: BMP and hemogram with diff to be drawn weekly. Fax results to [phone]. Following Physician/Facility: DO LUCILA DelunaTECH: HI TECH - PICC CARE Line and Location: Left Basilic Orders: Flush PICC with 10cc NS, administer medication, flush with 10cc NS and end with 5ml heparin flush. Change PICC dressing weekly and PRN. Teachable Caregiver Teachable Caregiver First Name: Ct Dunlapable Caregiver Last Name: Madison Teachable Caregiver Relationship to Patient: girlfriend Teachable Caregiver Teachable Caregiver Notes: N/A Teachable Caregiver available for SOC visit?: Yes Teachable Caregiver agreeable to provide skilled HITECH care per physician's orders?: Yes END PATIENT REGISTRATION INFORMATION Pt Home Health goal home COVID Status 1. Do you have any upper respiratory symptoms (cough, SOB, Fever)? No 2. Have you been exposed to anyone with COVID-19 Virus? No Answer only if pending or positive for COVID-19? 1. Agreeable to wear PPE at each visit? No 2. Is the hospital supplying them with PPE upon Discharge? No Start PACC Summary General Report/ Additional Comments Pt admitted for ortho surgery, removal of hardware, and drainage of abscess. Pt homegoing with IV and wound vac. Agreeable to SN with [facility]. Discharge Date: pending Referral Source-PACC: (Hospital/Unit): / H-[id number]/H-[id number] A End PACC Note [facility] 03-28-2023 Note Formatting of this n ote might be different from the original. From [facility]: [place] [employer] eff: 03/14/2023, Ded: $3200,OOP: $5600, Coinsurance: 80/20%. Pt updated. [facility] 03-28-2023 Note Formatting of this n ote might be different from the original. From [facility]: [place] [employer] eff: 03/14/2023, Ded: $3200,OOP: $5600, Coinsurance: 80/20%. Pt updated. [facility] 03-28-2023 Plan of care note Problem: Pain - Adult Goal: Verbalizes/displays adequate comfort level or baseline comfort level Outcome: Progressing Flowsheets (Taken 03/24/2023 1527 by Steffi Barroso, BALJIT) Verbalizes/displays adequate comfort level or baseline comfort level: Assess pain using appropriate pain scale Implement non-pharmacological measures as appropriate and evaluate response Problem: Safety - Adult Goal: Free from fall injury Outcome: Progressing Flowsheets (Taken 03/24/2023 1527 by Steffi Barroso, BALJIT) Free from fall injury: Instruct family/caregiver on patient safety Based on caregiver fall risk screen, instruct family/caregiver to ask for assistance with transferring if caregiver noted to have fall risk factors [facility] 03-28-2023 Note Care Management Prog ress Note Patient remains on H6 s/p R leg hardward removal and I&D 03/24/2023. Prevena wound vac noted. Wound care following. IV Zosyn noted. ID consulted for home going IV ATB. Home care following. Discharge plan is home. TCC to assist and follow as needed. Discharge Milestones and Delays Expected Date/Time: 03/29/2023 Disposition: Home or Self Care Discharge Milestones Place discharge order Complete med reconciliation Case mgmt discharge readiness Clinical Stability Diagnsotic Workup Expected Discharge History Expected Date/Time Set By Reviewed At 03/29/2023 Steffany Montes RN 03/28/2023 8:41 AM 03/27/2023 Tiburcio Camarillo MD 03/26/2023 11:10 AM 03/27/2023 Osmany Driver JD, MD 03/24/2023 12:13 PM 03/27/2023 Osmany Driver JD, MD 03/24/2023 9:22 AM 03/26/2023 Abdoulaye Welsh PA-C 03/24/2023 5:36 AM Length of Stay (Days): 4 GMLOS: No GMLOS Documented [facility] 03-28-2023 Note Formatting of this n ote is different from the original. Images from the original note were not included. Care Management Progress Note Patient remains on H6 s/p R leg hardward removal and I&D 03/24/2023. Prevena wound vac noted. Wound care following. IV Zosyn noted. ID consulted for home going IV ATB. Home care following. Discharge plan is home. TCC to assist and follow as needed. Discharge Milestones and Delays Expected Date/Time: 03/29/2023 Disposition: Home or Self Care Discharge Milestones Place discharge order Complete med reconciliation Case mgmt discharge readiness Clinical Stability Diagnsotic Workup Expected Discharge History Expected Date/Time Set By Reviewed At 03/29/2023 Steffany Montes RN 03/28/2023 8:41 AM 03/27/2023 Tiburcio Camarillo MD 03/26/2023 11:10 AM 03/27/2023 Osmany Driver JD, MD 03/24/2023 12:13 PM 03/27/2023 Osmany Driver JD, MD 03/24/2023 9:22 AM 03/26/2023 Abdoulaye Welsh PA-C 03/24/2023 5:36 AM Length of Stay (Days): 4 GMLOS: No GMLOS Documented [facility] 03-28-2023 Note Formatting of this n ote is different from the original. Images from the original note were not included. Care Management Progress Note Patient remains on H6 s/p R leg hardward removal and I&D 03/24/2023. Prevena wound vac noted. Wound care following. IV Zosyn noted. ID consulted for home going IV ATB. Home care following. Discharge plan is home. TCC to assist and follow as needed. Discharge Milestones and Delays Expected Date/Time: 03/29/2023 Disposition: Home or Self Care Discharge Milestones Place discharge order Complete med reconciliation Case mgmt discharge readiness Clinical Stability Diagnsotic Workup Expected Discharge History Expected Date/Time Set By Reviewed At 03/29/2023 Steffany Montes RN 03/28/2023 8:41 AM 03/27/2023 Tiburcio Camarillo MD 03/26/2023 11:10 AM 03/27/2023 Osmany Driver JD, MD 03/24/2023 12:13 PM 03/27/2023 Osmany Driver JD, MD 03/24/2023 9:22 AM 03/26/2023 Abdoulaye Welsh PA-C 03/24/2023 5:36 AM Length of Stay (Days): 4 GMLOS: No GMLOS Documented [facility] 03-28-2023 Note [facility] [address] [facility] [address] Dept: [phone] Adult Orthopaedic Service Patient Name: Heri Chowdhury Date of : 1970 Date: 03/28/23 Subjective: NAEON, patient is doing well this morning. He denies ELIZABETH, nausea, vomiting, chest pain, SOB, fevers, chills, numbness, tingling, weakness. No concerns or questions. Medications: acetaminophen, 650 mg, Oral, Q4H aspirin, 81 mg, Oral, Daily folic acid, 1 mg, Oral, Daily gabapentin, 300 mg, Oral, Nightly Lidocaine, 1 patch, Topical, Daily piperacillin-tazobactam, 4,500 mg, IntraVENous, q6h thiamine, 100 mg, Oral, Daily Physical Exam: Vitals: 03/27/23 2139 BP: 129/81 Pulse: 69 Resp: 16 Temp: 37.2 ?C (99 ?F) SpO2: 100% Intake and Output Summary (Last 24 hours) at Date Time Intake/Output Summary (Last 24 hours) at 03/28/2023 0610 Last data filed at 03/28/2023 0543 Gross per 24 hour Intake 600 ml Output 750 ml Net -150 ml Right Lower Extremity: Vac to suction, good seal +SILT Arevalo/Sa/SP/DP/Tib +DF/EHL/PF DP palpable Negative Eric's sign, no calf tenderness Labs: CBC: Lab Results Component Value Date WBC 6.1 03/26/2023 HGB 11.3 (L) 03/26/2023 HCT 34.5 (L) 03/26/2023 PLT 253 03/26/2023 BMP: Lab Results Component Value Date NA 134 (L) 03/28/2023 K 4.3 03/28/2023 CL 105 03/28/2023 CO2 23 03/28/2023 BUN 20 03/28/2023 CREATININE 0.63 (L) 03/28/2023 CALCIUM 9.1 03/28/2023 GLUCOSE 103 (H) 03/28/2023 PT/INR: No results found for: PROTIME , INR APTT: No results found for: APTT Type and Screen: No results found for: RH , LABANTI ETHANOL: No results found for: ETOH DRUG SCREEN: No results found for: BARBITURATES , BENZOURQL , COCAINESCRN , METHADU , OPIAU , PCPURINE CRP: No results found for: CRP ESR: No results found for: SEDRATE Assessment: 52 y.o. male with Right tibial plateau fracture with infected hardware and multiple draining sinus tracts s/p I&D with ANU and wound vac application on 03/24 Plan: WBAT No plans for further surgical intervention this admission Activity as tolerated PTOT CIWA protocol Medicine c/s APS c/s for postop pain control ID c/s Abx per ID, currently on Vanc/zosyn Intra-op cx: +pseudomonas Elevate op extremity Dressing: prevena - switch to portable prevena @dc Skin checks DVT ppx: ASA 81mg daily Pain, medical management per primary F/u with Dr. Griffiths in 2 weeks Ortho primary Dispo pending culture finalization, ID homegoing abx plan, and clearance with therapy. Discharge is active Max Argueta MD Orthopaedic Surgery, PGY-2 03/28/2023 6:14 AM [facility] 03-27-2023 Note Town Clerk fo ericg case for Discharge Needs. Referral sent to [facility] for verification of in home infusion benefits [facility] 03-27-2023 Note Formatting of this n ote might be different from the original. Town Clerk following case for Discharge Needs. Referral sent to [facility] for verification of in home infusion benefits [facility] [employer] 03-27-2023 Note Formatting of this n ote might be different from the original. Town Clerk following case for Discharge Needs. Referral sent to [facility] for verification of in home infusion benefits [facility] [employer] 03-27-2023 Note Hospitalist Progress Note 03/27/2023 Subjective: Admit Date: 03/24/2023 PCP: Awilda Rodney Room#: [id number] A Brief Hospital course: Patient is a 52-year-old male with right lower leg chronic tibial osteomyelitis complicated by hardware, draining sinus tracts x 3. He underwent removal of hardware and I&D of multiple abscesses including skin, subcutaneous tissues and bone during this admission. Orthopedic managing, ID on board for IV antibiotics. Medicine consulted for medical management. Interval History: Doing about the same today, no new complaints. Wants to go home, but understands plan of care. Continues to have a good appetite, having BM Adult diet Regular 24HR INTAKE/OUTPUT: Intake/Output Summary (Last 24 hours) at 03/27/2023 1433 Last data filed at 03/27/2023 0510 Gross per 24 hour Intake 1300 ml Output 1400 ml Net -100 ml Past Medical History: Past Medical History: Diagnosis Date GERD (gastroesophageal reflux disease) LABS: CBC: Recent Labs 03/25/234603/26/23 0407 WBC 8.3 6.1 RBC 3.32* 3.40* HGB 11.0* 11.3* HCT 33.4* 34.5* MCV 100.4* 101.4* RDW 15.0* 14.9* PLT 253 253 BMP: Recent Labs 03/25/23 00403/26/23 0407 03/27/23 0315 NA 134* 135 136 K 4.6 4.6 4.3 CL 106 106 107 CO2 23 24 22 BUN 23* 25* 26* CREATININE 0.70 0.75 0.77 GLUCOSE 146* 101* 99 CALCIUM 9.0 8.9 8.8 ANIONGAP 5 5 7 LIVER PROFILE:No results for input(s): AST , ALT , BILITOT , ALKPHOS , PROT in the last 72 hours. No lab exists for component: LABALBU PT/INR: Recent Labs 03/25/23 0047 PROTIME 10.0 INR 0.9 CARDIAC ENZYMES: No results for input(s): TROPONINI in the last 72 hours. Procalcitonin: No results found for: PROCAL COVID-19 PCR: No results for input(s): COVID19 in the last 72 hours. Objective: Vitals: BP 130/83 Pulse 70 Temp 36.5 ?C (97.7 ?F) (Temporal) Resp 18 Ht 5' 9.5 (1.765 m) Wt 160 lb (72.6 kg) SpO2 98% BMI 23.29 kg/m? Pulse Ox: SpO2 Av.5 % Min: 98 % Max: 99 % Supplemental O2: O2 Flow Rate (L/min): 2 L/min Physical Exam Vitals and nursing note reviewed. Constitutional: Appearance: Normal appearance. Cardiovascular: Rate and Rhythm: Normal rate. Pulmonary: Effort: Pulmonary effort is normal. Abdominal: General: Abdomen is flat. Musculoskeletal: Comments: RLE wrapped. Wound VAC in place Neurological: Mental Status: He is alert. Psychiatric: Mood and Affect: Mood normal. Behavior: Behavior normal. 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 03/25/202346 LYMPHOPCT 5.0 (L) 03/25/202346 MONOPCT 9.5 03/25/202346 BASOPCT 0.4 03/25/202346 NEUTROABS 7.1 (H) 03/25/202346 Micro: 03/24 tissue right leg stain negative, culture Psa 03/24 tissue right leg stain negative, culture NGTD 03/24 swab right leg stain negative, culture Psa Lines: PIVs Radiography/Echo/Other: 02/23/23 XR standing BLE Full-length standing films of bilateral lower extremities were obtained which show a healed right tibia with intact lateral plate and hardware. 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 Costa and Leanna Mendenhall PROFESSIONAL W[employer] cover this weekend Mitali Downing MD Based on diagnoses and management, combination of acute and chronic problems, exacerbations and/or acuity, this visit should be considered to be of moderate complexity. [facility] 03-25-2023 Note Hospitalist Progress Note 03/25/2023 Subjective: Admit Date: 03/24/2023 PCP: Awilda Rodney Room#: [id number] A Brief Hospital course: Patient is a 52-year-old male with right lower leg chronic tibial osteomyelitis complicated by hardware, draining sinus tracts x 3. He underwent removal of hardware and I&D of multiple abscesses including skin, subcutaneous tissues and bone during this admission. Orthopedic managing, ID on board for IV antibiotics. Medicine consulted for medical management. Interval History: Patient seen and evaluated at bedside, chart and overnight events reviewed. Significant other at bedside. Patient denies any acute symptoms. States he has been ambulating with walker. Having BMs. States that he is waiting for antibiotic plan/insurance coverage Had BM today Adult diet Regular 24HR INTAKE/OUTPUT: Intake/Output Summary (Last 24 hours) at 03/25/2023 1012 Last data filed at 03/25/2023 0449 Gross per 24 hour Intake -- Output 525 ml Net -525 ml Past Medical History: Past Medical History: Diagnosis Date GERD (gastroesophageal reflux disease) LABS: CBC: Recent Labs 03/25/2346 WBC 8.3 RBC 3.32* HGB 11.0* HCT 33.4* MCV 100.4* RDW 15.0* PLT 253 BMP: Recent Labs 03/25/2346 NA 134* K 4.6 CL 106 CO2 23 BUN 23* CREATININE 0.70 GLUCOSE 146* CALCIUM 9.0 ANIONGAP 5 LIVER PROFILE:No results for input(s): AST , ALT , BILITOT , ALKPHOS , PROT in the last 72 hours. No lab exists for component: LABALBU PT/INR: Recent Labs 03/25/2346 PROTIME 10.0 INR 0.9 CARDIAC ENZYMES: No results for input(s): TROPONINI in the last 72 hours. Procalcitonin: No results found for: PROCAL COVID-19 PCR: No results for input(s): COVID19 in the last 72 hours. Objective: Vitals: BP 125/76 (BP Location: Right arm, Patient Position: Sitting) Pulse 65 Temp 36.7 ?C (98 ?F) (Temporal) Resp 18 Ht 5' 9.5 (1.765 m) Wt 160 lb (72.6 kg) SpO2 96% BMI 23.29 kg/m? Pulse Ox: SpO2 Av.1 % Min: 96 % Max: 100 % Supplemental O2: O2 Flow Rate (L/min): 2 L/min Physical Exam Vitals and nursing note reviewed. Constitutional: Appearance: Normal appearance. Cardiovascular: Rate and Rhythm: Normal rate. Pulmonary: Effort: Pulmonary effort is normal. Abdominal: General: Abdomen is flat. Musculoskeletal: Comments: RLE wrapped. Wound VAC in place Neurological: Mental Status: He is alert. Psychiatric: Mood and Affect: Mood normal. Behavior: Behavior normal. Medications: acetaminophen, 650 mg, Oral, Q4H aspirin, 81 mg, Oral, Daily folic acid, 1 mg, Oral, Daily gabapentin, 300 mg, Oral, Nightly Lidocaine, 1 patch, Topical, Daily piperacillin-tazobactam, 3,375 mg, IntraVENous, q8h thiamine, 100 mg, Oral, Daily vancomycin, 15 mg/kg, IntraVENous, q12h Assessment Right lower leg chronic tibial osteomyelitis C/P hardware, draining sinus tracts x 3 S/p removal of hardware and I&D of multiple abscesses including skin, SQ tissues and bone with wound VAC application Malunion left femur Hx left femur fracture at age 14 Hx open R tibia fracture s/p ORIF 1997 -Orthopedics managing -Pain control, PT/OT -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 On bank/Zosyn. Follow cultures -Restart DVT PPx when okay with surgery-ASA GERD-Pepcid Plan Advance Directive: No Order Anticipated Discharge Per primary service Total time spent (which include face to face and non face to face encounters) : 26 minutes Extended Emergency Contact Information Primary Emergency Contact: Ct Wallace Relation: None Fadi Denney MD Division of Hospitalist Medicine [facility] 03-25-2023 Consult note Associated Order (s): IP CONSULT TO ANESTHESIOLOGY - ACUTE PAIN SERVICE PAGING: The Acute Pain Service providers are available exclusively via [employer]. APS does not utilize pagers. 03/25/2023 Lab Results Component Value Date CREATININE 0.70 03/25/2023 Discharge Recommendations: Pending Pain Management Adjuvants: 0700 --> 0700 03/24/2023 Scheduled APAP 1300 mg Gabapentin 300 mg Lidocaine patches ON PRN Hydromorphone IV 0.25 mg in PACU Methocarbamol Oxycodone Assessment / Pain Management Plan: Acute Postsurgical RLE pain Multimodal pain regimen: BLOCK: Popliteal and Adductor Canal Continue Acetaminophen 650 mg po q4h scheduled ATC. Liver enzymes WNL, last checked: 01-13-2021 Continue Gabapentin 300 mg po nightly. Continue Lidocaine patch x 1. Cut and place as needed. Continue Hydromorphone 0.25 mg - 0.5 mg IVP q4h prn moderate to severe breakthrough pain. Please utilize oral medications first. Continue Methocarbamol 1000 mg PO TID PRN. Continue Oxycodone 5 - 10 mg po q4h prn moderate to severe breakthrough pain. Continue Naloxone 0.4 mg IVP prn opioid reversal. PRN if respiratory rate is less than 6/min and patient is difficult to arouse then notify physician STAT. Mix 9 mL of sodium chloride 0.9% with 0.4 mg (1 mL) of naloxone (NARCAN) in 10 mL syringe. (Note: dilution is 0.04 mg/mL) Give 0.08 mg (2 mL of special dilution), slow IV push, repeat up to 0.4 mg (10 mL) or until patient is responsive to physical stimulation and respiratory rate is equal to or greater than 6 breaths/min. Continue to observe, if no response within 3 minutes of administration of 0.4 mg (10 mL) total, repeat dose (0.4 mg as administered previously). Right tibial plateau fracture with infected hardware and multiple draining sinus tracts S/p removal lateral tibial plateau plate, incision and drainage of deep right leg abscess, possible application wound vac incision and drainage leg or ankle deep abscess or hematoma See #1 Constipation At risk for opioid induced constipation Patient currently receiving opioids for pain management necessitating a bowel regimen. Recommend initiating scheduled Sennakot-S 8.6/50mg, 1 tablet PO BID. Would also recommend Milk of Magnesia 400mg/5ml, administer 30mL by mouth daily PRN. Opioid Use Acute: Expected to be short term post op pain, see #1 OARRS reviewed for past two years. (No opiates RX filled) Reviewed and educated patient on responsible use of opioids: after surgery, it can be normal to experience pain. If it is mild and you can move about without great difficulty or discomfort, you may not need to take pain medication. It is very important to take your pain medication only as needed. Avoiding excessive or unnecessary medication, will enable you to progress your activity each day to improve your muscle tone and movement, deep breathing, digestion, circulation and your body's ability to heal itself. Will follow. Plan discussed with patient who appears to understand and agrees. Subjective: We have been asked to see this 52 y.o. male for removal lateral tibial plateau plate, incision and drainage of deep right leg abscess, possible application wound vac incision and drainage leg or ankle deep abscess or hematoma on 03-24-2023 Reviewed XR tibia fibular 2 view right NAEON, no pages. On arrival, pt sitting up in bed. Patient states he is doing alright. He reports no pain in his RLE at this time - states block is intact and all he feels his numbness. States he is numb from knee down to his toes. Can feel pressure when he touches his leg. Going to the restroom with help of his walker. Very pleasant and cooperative during assessment. Getting ready to work with PT. Tolerating diet, denies n/v. Patient educated on pain regimen, aware that oxycodone po, hydromorphone IV, methocarbamol are PRN and patient must ask for these medications when needed. Educated patient to utilize oral pain medications as first line and reserve IV pain medications for severe breakthrough pain. Realistic pain control discussed with patient: Not all pain will be taken away, but pain should be tolerable/manageable with current regimen. Pt instructed to have staff page APS if pain becomes uncontrolled when utilizing present regimen. Pt agreeable, denies further questions. PMH reviewed below Pain Location: RLE Aggravating Factors: nothing at the moment Sedation score: 1: Awake and alert Pain Severity: none currently Pain Quality: none Alleviating Factors: Rest/Pain medications Pain Management: n/a The patient's medical history and physical assessment, medications, allergies, patient's current medical condition, imaging, and labs were reviewed as part of this consultation. [x] Patient's Medications have been reviewed. [x] Patient's OARRS report (PDMP) have been reviewed. NO OARRS Social History Tobacco Use Smoking Status Every Day Packs/day: 1.00 Years: 40.00 Additional pack years: 0.00 Total pack years: 40.00 Types: Cigarettes Smokeless Tobacco Current Types: Chew Tobacco Comments ONLY WHEN AT WORK Social History Substance and Sexual Activity Alcohol Use Yes Alcohol/week: 6.0 standard drinks of alcohol Types: 6 Standard drinks or equivalent per week Comment: DAILY HAS 6 DRINKS YESSENIA Social History Substance and Sexual Activity Drug Use Yes Types: Marijuana Comment: ONCE A MONTH Objective Findings: Height: 176.5 cm (5' 9.5 ) Weight: 72.6 kg (160 lb) BMI (Calculated): 23.3 Vital signs: Blood pressure 125/76, pulse 65, temperature 36.7 C (98 F), temperature source Temporal, resp. rate 18, height 1.765 m (5' 9.5 ), weight 72.6 kg (160 lb), SpO2 96%. Allergies: Codeine, Diazepam, and Morphine Past Medical History: Diagnosis Date GERD (gastroesophageal reflux disease) Past Surgical History: Procedure Laterality Date FEMUR FRACTURE SURGERY Left Distal Femur ORIF FEMUR FRACTURE SURGERY Left 1984 Midshaft ORIF SKIN GRAFT Right x2 for open tibia fx TIBIA FRACTURE SURGERY Right 1997 ORIF for open fx TIBIAL PLATEAU HARDWARE REMOVAL Right 03/24/2023 INCISION AND DRAINAGE DEEP RIGHT LEG ABSCESS No family history on file. Patient Active Problem List Diagnosis Chronic osteomyelitis ([facility]) ([facility]) GERD without esophagitis Chronic osteomyelitis of right tibia ([facility]) ([facility]) Review of Systems Constitutional: Negative for chills and fever. HENT: Negative for trouble swallowing. Eyes: Negative for visual disturbance. Respiratory: Negative for cough and shortness of breath. Cardiovascular: Negative for chest pain. Gastrointestinal: Negative for nausea and vomiting. Genitourinary: Negative for difficulty urinating. Musculoskeletal: Negative for arthralgias and myalgias. Skin: Positive for wound (surgical). Neurological: Positive for numbness (RLE - 2/2 block). Negative for dizziness. Psychiatric/Behavioral: Negative for agitation. The patient is not nervous/anxious. Physical Exam Vitals and nursing note reviewed. Constitutional: Appearance: Normal appearance. HENT: Head: Normocephalic and atraumatic. Nose: Nose normal. Cardiovascular: Rate and Rhythm: Normal rate. Pulmonary: Effort: Pulmonary effort is normal. Abdominal: Tenderness: There is no guarding. Musculoskeletal: Cervical back: Normal range of motion. Comments: + numbness RLE Wound vac in place and intact Skin: General: Skin is warm and dry. Neurological: Mental Status: He is alert and oriented to person, place, and time. Psychiatric: Mood and Affect: Mood normal. Behavior: Behavior normal. Thought Content: Thought content normal. Judgment: Judgment normal. PAGING: The Acute Pain Service providers are available exclusively via [employer]. APS does not utilize pagers. [employer] Phone: 03-25-2023 Consult note Associated Order (s): IP CONSULT TO ANESTHESIOLOGY - ACUTE PAIN SERVICE PAGING: The Acute Pain Service providers are available exclusively via [employer]. APS does not utilize pagers. 03/25/2023 Lab Results Component Value Date CREATININE 0.70 03/25/2023 Discharge Recommendations: Pending Pain Management Adjuvants: 0700 --> 0700 03/24/2023 Scheduled APAP 1300 mg Gabapentin 300 mg Lidocaine patches ON PRN Hydromorphone IV 0.25 mg in PACU Methocarbamol Oxycodone Assessment / Pain Management Plan: Acute Postsurgical RLE pain Multimodal pain regimen: BLOCK: Popliteal and Adductor Canal Continue Acetaminophen 650 mg po q4h scheduled ATC. Liver enzymes WNL, last checked: 01-13-2021 Continue Gabapentin 300 mg po nightly. Continue Lidocaine patch x 1. Cut and place as needed. Continue Hydromorphone 0.25 mg - 0.5 mg IVP q4h prn moderate to severe breakthrough pain. Please utilize oral medications first. Continue Methocarbamol 1000 mg PO TID PRN. Continue Oxycodone 5 - 10 mg po q4h prn moderate to severe breakthrough pain. Continue Naloxone 0.4 mg IVP prn opioid reversal. PRN if respiratory rate is less than 6/min and patient is difficult to arouse then notify physician STAT. Mix 9 mL of sodium chloride 0.9% with 0.4 mg (1 mL) of naloxone (NARCAN) in 10 mL syringe. (Note: dilution is 0.04 mg/mL) Give 0.08 mg (2 mL of special dilution), slow IV push, repeat up to 0.4 mg (10 mL) or until patient is responsive to physical stimulation and respiratory rate is equal to or greater than 6 breaths/min. Continue to observe, if no response within 3 minutes of administration of 0.4 mg (10 mL) total, repeat dose (0.4 mg as administered previously). Right tibial plateau fracture with infected hardware and multiple draining sinus tracts S/p removal lateral tibial plateau plate, incision and drainage of deep right leg abscess, possible application wound vac incision and drainage leg or ankle deep abscess or hematoma See #1 Constipation At risk for opioid induced constipation Patient currently receiving opioids for pain management necessitating a bowel regimen. Recommend initiating scheduled Sennakot-S 8.6/50mg, 1 tablet PO BID. Would also recommend Milk of Magnesia 400mg/5ml, administer 30mL by mouth daily PRN. Opioid Use Acute: Expected to be short term post op pain, see #1 OARRS reviewed for past two years. (No opiates RX filled) Reviewed and educated patient on responsible use of opioids: after surgery, it can be normal to experience pain. If it is mild and you can move about without great difficulty or discomfort, you may not need to take pain medication. It is very important to take your pain medication only as needed. Avoiding excessive or unnecessary medication, will enable you to progress your activity each day to improve your muscle tone and movement, deep breathing, digestion, circulation and your body's ability to heal itself. Will follow. Plan discussed with patient who appears to understand and agrees. Subjective: We have been asked to see this 52 y.o. male for removal lateral tibial plateau plate, incision and drainage of deep right leg abscess, possible application wound vac incision and drainage leg or ankle deep abscess or hematoma on 03-24-2023 Reviewed XR tibia fibular 2 view right NAEON, no pages. On arrival, pt sitting up in bed. Patient states he is doing alright. He reports no pain in his RLE at this time - states block is intact and all he feels his numbness. States he is numb from knee down to his toes. Can feel pressure when he touches his leg. Going to the restroom with help of his walker. Very pleasant and cooperative during assessment. Getting ready to work with PT. Tolerating diet, denies n/v. Patient educated on pain regimen, aware that oxycodone po, hydromorphone IV, methocarbamol are PRN and patient must ask for these medications when needed. Educated patient to utilize oral pain medications as first line and reserve IV pain medications for severe breakthrough pain. Realistic pain control discussed with patient: Not all pain will be taken away, but pain should be tolerable/manageable with current regimen. Pt instructed to have staff page APS if pain becomes uncontrolled when utilizing present regimen. Pt agreeable, denies further questions. PMH reviewed below Pain Location: RLE Aggravating Factors: nothing at the moment Sedation score: 1: Awake and alert Pain Severity: none currently Pain Quality: none Alleviating Factors: Rest/Pain medications Pain Management: n/a The patient's medical history and physical assessment, medications, allergies, patient's current medical condition, imaging, and labs were reviewed as part of this consultation. [x] Patient's Medications have been reviewed. [x] Patient's OARRS report (PDMP) have been reviewed. NO OARRS Social History Tobacco Use Smoking Status Every Day Packs/day: 1.00 Years: 40.00 Additional pack years: 0.00 Total pack years: 40.00 Types: Cigarettes Smokeless Tobacco Current Types: Chew Tobacco Comments ONLY WHEN AT WORK Social History Substance and Sexual Activity Alcohol Use Yes Alcohol/week: 6.0 standard drinks of alcohol Types: 6 Standard drinks or equivalent per week Comment: DAILY HAS 6 DRINKS WHISKEY Social History Substance and Sexual Activity Drug Use Yes Types: Marijuana Comment: ONCE A MONTH Objective Findings: Height: 176.5 cm (5' 9.5 ) Weight: 72.6 kg (160 lb) BMI (Calculated): 23.3 Vital signs: Blood pressure 125/76, pulse 65, temperature 36.7 C (98 F), temperature source Temporal, resp. rate 18, height 1.765 m (5' 9.5 ), weight 72.6 kg (160 lb), SpO2 96%. Allergies: Codeine, Diazepam, and Morphine Past Medical History: Diagnosis Date GERD (gastroesophageal reflux disease) Past Surgical History: Procedure Laterality Date FEMUR FRACTURE SURGERY Left Distal Femur ORIF FEMUR FRACTURE SURGERY Left 1984 Midshaft ORIF SKIN GRAFT Right x2 for open tibia fx TIBIA FRACTURE SURGERY Right 1997 ORIF for open fx TIBIAL PLATEAU HARDWARE REMOVAL Right 03/24/2023 INCISION AND DRAINAGE DEEP RIGHT LEG ABSCESS No family history on file. Patient Active Problem List Diagnosis Chronic osteomyelitis (CMS/HCC) (HCC) GERD without esophagitis Chronic osteomyelitis of right tibia (CMS/HCC) (HCC) Review of Systems Constitutional: Negative for chills and fever. HENT: Negative for trouble swallowing. Eyes: Negative for visual disturbance. Respiratory: Negative for cough and shortness of breath. Cardiovascular: Negative for chest pain. Gastrointestinal: Negative for nausea and vomiting. Genitourinary: Negative for difficulty urinating. Musculoskeletal: Negative for arthralgias and myalgias. Skin: Positive for wound (surgical). Neurological: Positive for numbness (RLE - 2/2 block). Negative for dizziness. Psychiatric/Behavioral: Negative for agitation. The patient is not nervous/anxious. Physical Exam Vitals and nursing note reviewed. Constitutional: Appearance: Normal appearance. HENT: Head: Normocephalic and atraumatic. Nose: Nose normal. Cardiovascular: Rate and Rhythm: Normal rate. Pulmonary: Effort: Pulmonary effort is normal. Abdominal: Tenderness: There is no guarding. Musculoskeletal: Cervical back: Normal range of motion. Comments: + numbness RLE Wound vac in place and intact Skin: General: Skin is warm and dry. Neurological: Mental Status: He is alert and oriented to person, place, and time. Psychiatric: Mood and Affect: Mood normal. Behavior: Behavior normal. Thought Content: Thought content normal. Judgment: Judgment normal. PAGING: The Acute Pain Service providers are available exclusively via [employer]. APS does not utilize pagers. Associated Order(s): IP CONSULT TO HOSPITALIST Images from the original note were not included. Hospital Medicine Consult Patient - Heri Chowdhury, Age - 52 y.o. - 1970 Room Number - [id number] A Consulting - Kendell Griffiths MD Primary Care Physician - Awilda Rodney Date of Admission - 03/24/2023 5:34 AM Hospital Day - 0 Reason for Consult: Medical Management HISTORY OF PRESENT ILLNESS: Heri is a 52 y.o. male pmhx below POD #0 Hardware removal of right tibia and I&D of multiple abscesses. Per specialist documentation no intraoperative complications or concerns reported. USACS consulted for medical management. Pt Hx significant for GERD. On arrival to Pt sleeping, briefly rouses to verbal stimulation however returns to sleep. Chart review performed, Medications reviewed and Pt care/concerns discussed w/ floor RN. Formal examination/assessment in AM Past Medical History: Past Medical History: Diagnosis Date GERD (gastroesophageal reflux disease) Past Surgical History: Past Surgical History: Procedure Laterality Date FEMUR FRACTURE SURGERY Left Distal Femur ORIF FEMUR FRACTURE SURGERY Left 1984 Midshaft ORIF SKIN GRAFT Right x2 for open tibia fx TIBIA FRACTURE SURGERY Right 1997 ORIF for open fx TIBIAL PLATEAU HARDWARE REMOVAL Right 03/24/2023 INCISION AND DRAINAGE DEEP RIGHT LEG ABSCESS Medications: acetaminophen, 650 mg, Oral, Q4H [START ON 03/25/2023] aspirin, 81 mg, Oral, Daily folic acid, 1 mg, Oral, Daily gabapentin, 300 mg, Oral, Nightly Lidocaine, 1 patch, Topical, Daily piperacillin-tazobactam, 3,375 mg, IntraVENous, q8h thiamine, 100 mg, Oral, Daily vancomycin, 15 mg/kg, IntraVENous, q12h lactated Ringer's, 50 mL/hr, Last Rate: Stopped (03/24/23 0905) PRN medications: HYDROmorphone OR HYDROmorphone, methocarbamol, naloxone, oxyCODONE OR oxyCODONE Allergies: Codeine, Diazepam, and Morphine Social History: Social History Socioeconomic History Marital status: Spouse name: Not on file Number of children: Not on file Years of education: Not on file Highest education level: Not on file Occupational History Not on file Tobacco Use Smoking status: Every Day Packs/day: 1.00 Years: 40.00 Additional pack years: 0.00 Total pack years: 40.00 Types: Cigarettes Smokeless tobacco: Current Types: Chew Tobacco comments: ONLY WHEN AT WORK Vaping Use Vaping Use: Never used Substance and Sexual Activity Alcohol use: Yes Alcohol/week: 6.0 standard drinks of alcohol Types: 6 Standard drinks or equivalent per week Comment: DAILY HAS 6 DRINKS WHISKEY Drug use: Yes Types: Marijuana Comment: ONCE A MONTH Sexual activity: Yes Partners: Female Other Topics Concern Not on file Social History Narrative Not on file Social Determinants of Health Financial Resource Strain: Not on file Food Insecurity: Not on file Transportation Needs: Not on file Physical Activity: Not on file Stress: Not on file Social Connections: Not on file Intimate Partner Violence: Not on file Housing Stability: Not on file Family History: No family history on file. REVIEW OF SYSTEMS: 10 point ROS obtained, as per HPI, otherwise NEG Physical Exam: Vitals: BP 111/76 Pulse 83 Temp 36.6 C (97.9 F) (Temporal) Resp 16 Ht 5' 9.5 (1.765 m) Wt 160 lb (72.6 kg) SpO2 98% BMI 23.29 kg/m BMI Classification: Normal Weight (BMI 18.5-24.9) Pulse Ox: SpO2 Av.2 % Min: 96 % Max: 100 % Supplemental O2: O2 Flow Rate (L/min): 2 L/min Physical Exam Constitutional: General: He is sleeping. Comments: Pt sleeping on arrival to . Briefly wakes to verbal stimuli, returns to sleep. Limited examination HENT: Head: Normocephalic and atraumatic. Eyes: General: Vision grossly intact. Gaze aligned appropriately. Extraocular Movements: Extraocular movements intact. Pulmonary: Effort: Pulmonary effort is normal. Breath sounds: Normal breath sounds. No wheezing. Musculoskeletal: Comments: RLE dressing Skin: General: Skin is dry. Neurological: General: No focal deficit present. Cranial Nerves: Cranial nerves 2-12 are intact. LABS: Recent Results (from the past 24 hour(s)) Culture, Aerobic Bacteria with Gram Stain Collection Time: 03/24/23 7:48 AM Specimen: Leg, Right; Swab Result Value Ref Range Culture Culture in progress Gram Stain Result Many Polymorphonuclear leukocytes per low power field Gram Stain Result No organisms seen Culture, Aerobic Bacteria with Gram Stain Collection Time: 03/24/23 8:15 AM Specimen: Leg, Right; Tissue Result Value Ref Range Culture Culture in progress Gram Stain Result Rare Polymorphonuclear leukocytes per low power field Gram Stain Result No organisms seen Culture, Aerobic Bacteria with Gram Stain Collection Time: 03/24/23 8:19 AM Specimen: Leg, Right; Tissue Result Value Ref Range Culture Culture in progress Gram Stain Result Rare Polymorphonuclear leukocytes per low power field Gram Stain Result No organisms seen Urine Culture: No results found for this or any previous visit. IMAGING: See report Assessment Data: Acute, acute on chronic, unstable/uncontrolled chronic problems/diagnoses: S/P Hardware removal of right tibia and I&D of multiple abscesses - Orthopedic surgical specialty following - PRN analgesia - PT/OT consulted - IV Vanc/Zosyn ordered - Infectious Disease specialty following Stable chronic problems affecting care, new non-acute diagnoses: GERD - PRN Pepcid 20mg ordered Plan As a result of the above findings & factors, the following mgmt was pursued: - am labs, replace lytes prn - PT/OT/CM/SW - delirium precautions: increase activity and limit nighttime disturbances - DVT prophylaxis: encourage ambulation Complexity: Chronic illness with mild to moderate exacerbation, progression, or side effect of tx (MOD). Risk: Admission to hospital-level care was considered or occurred (HIGH). Advance Directive: FULL CODE Anticipated Discharge - Date - TBD - Location - TBD Total time spent (which include face to face and non face to face encounters) : 55 minutes Extended Emergency Contact Information Primary Emergency Contact: Ct Wallace Relation: None Luis Enrique Leach MD Division of Hospitalist Medicine Inpatient Medical Services/[place] Associated Order(s): IP CONSULT TO INFECTIOUS DISEASES Images from the original note were not included. 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 Pt was in [place] [facility] [place] 27 where he sustained compound fractures of his BLEs requiring plates, grafts, flap closure. In April 2018, his incision opened up on its own. Pt nursed it at home with OTC antibiotic ointment, peroxide for 2 months. Pt reports a few weeks later, it recurred. His leg became red, swollen, and painful. Pt was seen in the [place] ED and diagnosed with a bone infection. On 06/21/18, an XR showed a lucency at the fracture site of the proximal tibial shaft concerning for OM. Pt was discharged on bactrim and cephalexin but no documented cultures to guide therapy. 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 Pt was admitted 03/24 for removal of hardware and I&D of multiple abscesses including skin, subcutaneous tissues and bone. Cultures were sent. Pt also has a symptomatic left femoral non union, which will not be addressed until his RLE infection has been treated. Pt received pre op cefazolin and was started on vanc, pip tazo post op. Pt report she feels good. He had two nerve blocks and denies pain. Pt cannot move his toes. Past Medical History: Past Medical History: Diagnosis Date GERD (gastroesophageal reflux disease) Past Surgical History: Past Surgical History: Procedure Laterality Date FEMUR FRACTURE SURGERY Left Distal Femur ORIF FEMUR FRACTURE SURGERY Left 1984 Midshaft ORIF SKIN GRAFT Right x2 for open tibia fx TIBIA FRACTURE SURGERY Right 1997 ORIF for open fx TIBIAL PLATEAU HARDWARE REMOVAL Right 03/24/2023 INCISION AND DRAINAGE DEEP RIGHT LEG ABSCESS Current Medications: Current Facility-Administered Medications Medication Dose Route Frequency Provider Last Rate Last Admin [START ON 03/25/2023] aspirin EC tablet 81 mg 81 mg Oral Daily Osmany Driver JD, MD folic acid (Folvite) tablet 1 mg 1 mg Oral Daily Osmany Driver JD, MD lactated Ringer's (LR) infusion 50 mL/hr IntraVENous Continuous Osmany Driver JD, MD Stopped at 03/24/23 0905 naloxone (Narcan) injection 0.4 mg 0.4 mg IntraVENous q5 min PRN Kendell Griffiths MD oxyCODONE (Roxicodone) immediate release tablet 2.5 mg 2.5 mg Oral q4h PRN Osmany Driver JD, MD Or oxyCODONE (Roxicodone) immediate release tablet 5 mg 5 mg Oral q4h PRN Osmany Driver JD, MD piperacillin-tazobactam (Zosyn) IVPB 3,375 mg 3,375 mg IntraVENous q8h Osmany Driver JD, MD thiamine (Vitamin B1) tablet 100 mg 100 mg Oral Daily Osmany Driver JD, MD vancomycin IVPB 1000 mg in 200 mL NS (premix) 15 mg/kg IntraVENous q12h Osmany Driver JD, MD Allergies: Allergies Allergen Reactions Codeine Nausea Only Diazepam Other Per patient it makes him mean and violent when taken with morphine Morphine Other Per patient when taken with valium makes him mean and violent Social History: Social History Socioeconomic History Marital status: Spouse name: Not on file Number of children: Not on file Years of education: Not on file Highest education level: Not on file Occupational History Not on file Tobacco Use Smoking status: Every Day Packs/day: 1.00 Years: 40.00 Additional pack years: 0.00 Total pack years: 40.00 Types: Cigarettes Smokeless tobacco: Current Types: Chew Tobacco comments: ONLY WHEN AT WORK Vaping Use Vaping Use: Never used Substance and Sexual Activity Alcohol use: Yes Alcohol/week: 6.0 standard drinks of alcohol Types: 6 Standard drinks or equivalent per week Comment: DAILY HAS 6 DRINKS WHISKEY Drug use: Yes Types: Marijuana Comment: ONCE A MONTH Sexual activity: Yes Partners: Female Other Topics Concern Not on file Social History Narrative Not on file Social Determinants of Health Financial Resource Strain: Not on file Food Insecurity: Not on file Transportation Needs: Not on file Physical Activity: Not on file Stress: Not on file Social Connections: Not on file Intimate Partner Violence: Not on file Housing Stability: Not on file Family History: No family history on file. Review of Systems: Review of Systems Constitutional: Negative for chills, diaphoresis and fever. Respiratory: Negative for cough and shortness of breath. Cardiovascular: Negative for chest pain, palpitations and leg swelling. Gastrointestinal: Negative for abdominal pain, diarrhea, nausea and vomiting. Genitourinary: Negative. Musculoskeletal: Positive for gait problem and joint swelling. Skin: Positive for wound. Negative for rash. Psychiatric/Behavioral: Negative. All other systems reviewed and are negative. Vitals: Patient Vitals for the past 24 hrs: BP Temp Temp src Pulse Resp SpO2 Height Weight 03/24/23 1035 111/76 36.6 C (97.9 F) Temporal 83 16 98 % -- -- 03/24/23 1030 129/75 -- -- 70 (!) 28 99 % -- -- 03/24/23 1015 125/81 -- -- 63 17 100 % -- -- 03/24/23 1000 119/76 -- -- 63 15 96 % -- -- 03/24/23 0945 129/76 -- -- 76 18 98 % -- -- 03/24/23 0930 123/67 -- -- 59 (!) 11 98 % -- -- 03/24/23 0915 116/70 -- -- 75 16 100 % -- -- 03/24/23 0903 104/67 36.2 C (97.2 F) Temporal 80 14 99 % -- -- 03/24/23 0715 (!) 141/73 36.8 C (98.2 F) -- 84 16 -- -- -- 03/24/23 0710 124/88 36.7 C (98.1 F) -- 84 16 -- -- -- 03/24/23 0700 129/80 36.7 C (98.1 F) -- 82 14 -- -- -- 03/24/23 0546 133/85 36.8 C (98.3 F) -- 80 -- 96 % 1.765 m (5' 9.5 ) 72.6 kg (160 lb) Physical Exam: Physical Exam Vitals and nursing note reviewed. Constitutional: General: He is not in acute distress. Appearance: Normal appearance. He is normal weight. He is not ill-appearing, toxic-appearing or diaphoretic. HENT: Head: Normocephalic and atraumatic. Right Ear: External ear normal. Left Ear: External ear normal. Nose: Nose normal. No rhinorrhea. Mouth/Throat: Comments: Poor dentition Eyes: General: No scleral icterus. Right eye: No discharge. Left eye: No discharge. Conjunctiva/sclera: Conjunctivae normal. Cardiovascular: Rate and Rhythm: Normal rate and regular rhythm. Heart sounds: Normal heart sounds. Pulmonary: Effort: Pulmonary effort is normal. No respiratory distress. Breath sounds: Normal breath sounds. Abdominal: General: Bowel sounds are normal. There is no distension. Palpations: Abdomen is soft. There is no mass. Tenderness: There is no abdominal tenderness. Musculoskeletal: Comments: Right lower leg with wound vac dressing; tube and trap are negative. Left leg with gross deformity superior to knee; no overlying skin changes Skin: General: Skin is warm and dry. Coloration: Skin is not jaundiced. Findings: No bruising, erythema or rash. Neurological: Mental Status: He is alert and oriented to person, place, and time. Mental status is at baseline. Sensory: Sensory deficit present. Psychiatric: Mood and Affect: Mood normal. Behavior: Behavior normal. Thought Content: Thought content normal. Judgment: Judgment normal. Labs: No results found for: NA , K , CL , CO2 , BUN , CREATININE , GLUCOSE , CALCIUM , PROT , BILITOT , ALKPHOS , AST , ALT , PROCAL No results found for: WBC , HGB , HCT , PLT , GRANULOCYTES , LYMPHOPCT , MONOPCT , LABEOS , BASOPCT , NEUTROABS Micro: 03/24 tissue right leg stain negative, culture in progress 03/24 tissue right leg stain negative, culture in progress 03/24 swab right leg stain negative, culture in progress Lines: PIVs Radiography/Echo/Other: 02/23/23 XR standing BLE Full-length standing films of bilateral lower extremities were obtained which show a healed right tibia with intact lateral plate and hardware. 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 documented in this encounter [facility] 03-25-2023 Note [facility] [id number] [facility] [id number] Dept: [phone] Adult Orthopaedic Service Patient Name: Heri Chowdhury Date of : 1970 Date: 03/25/23 Subjective: NAEON, patient is doing well, their pain is controlled, block intact. They have been out of bed, have had a BM, have urinated. They deny headache, nausea, vomiting, chest pain, shortness of breath, fevers, chills, new numbness, new tingling, new weakness, no concerns or questions. Medications: acetaminophen, 650 mg, Oral, Q4H aspirin, 81 mg, Oral, Daily folic acid, 1 mg, Oral, Daily gabapentin, 300 mg, Oral, Nightly Lidocaine, 1 patch, Topical, Daily piperacillin-tazobactam, 3,375 mg, IntraVENous, q8h thiamine, 100 mg, Oral, Daily vancomycin, 15 mg/kg, IntraVENous, q12h Physical Exam: Vitals: 03/25/23443 BP: 121/74 Pulse: 73 Resp: 16 Temp: 36.8 ?C (98.2 ?F) SpO2: 98% Intake and Output Summary (Last 24 hours) at Date Time Intake/Output Summary (Last 24 hours) at 03/25/2023622 Last data filed at 03/25/2023448 Gross per 24 hour Intake 969.49 ml Output 525 ml Net 444.49 ml Right Lower Extremity: Vac to suction, good seal +SILT Arevalo/Sa/SP/DP/Tib distributions to pressure +DF/EHL/PF motor function out, no toe wiggle DP palpable Negative Eric's sign, no calf tenderness Labs: CBC: Lab Results Component Value Date WBC 8.3 03/25/2023 HGB 11.0 (L) 03/25/2023 HCT 33.4 (L) 03/25/2023 PLT 253 03/25/2023 BMP: Lab Results Component Value Date NA 134 (L) 03/25/2023 K 4.6 03/25/2023 CL 106 03/25/2023 CO2 23 03/25/2023 BUN 23 (H) 03/25/2023 CREATININE 0.70 03/25/2023 CALCIUM 9.0 03/25/2023 GLUCOSE 146 (H) 03/25/2023 PT/INR: Lab Results Component Value Date PROTIME 10.0 03/25/2023 INR 0.9 03/25/2023 APTT: No results found for: APTT Type and Screen: No results found for: RH , LABANTI ETHANOL: No results found for: ETOH DRUG SCREEN: No results found for: BARBITURATES , BENZOURQL , COCAINESCRN , METHADU , OPIAU , PCPURINE CRP: No results found for: CRP ESR: No results found for: SEDRATE Rads: Radiological Procedure reviewed. Assessment: 52 y.o. male with Right tibial plateau fracture with infected hardware and multiple draining sinus tracts s/p I&D with ANU and wound vac application Plan: WBAT No plans for further surgical intervention this admission Activity as tolerated PTOT CIWA protocol Medicine c/s APS c/s for postop pain control ID c/s Abx per ID Intra-op cx: NGTD Elevate op extremity CBC x2 Dressing: prevena - switch to portable prevena @dc Skin checks DVT ppx: ASA 81mg daily Pain, medical management per primary F/u with Dr. Griffiths in 2 weeks Admitted to [facility] Max Argueta MD Orthopaedic Surgery, PGY-2 03/25/2023 6:26 AM [facility] 03-24-2023 Consult note Associated Order (s): IP CONSULT TO HOSPITALIST Images from the original note were not included. Hospital Medicine Consult Patient - Heri Chowdhury, Age - 52 y.o. - 1970 Room Number - [id number] A Consulting - Kendell Griffiths MD Primary Care Physician - Awilda Rodney Date of Admission - 03/24/2023 5:34 AM Hospital Day - 0 Reason for Consult: Medical Management HISTORY OF PRESENT ILLNESS: Heri is a 52 y.o. male pmhx below POD #0 Hardware removal of right tibia and I&D of multiple abscesses. Per specialist documentation no intraoperative complications or concerns reported. USACS consulted for medical management. Pt Hx significant for GERD. On arrival to Pt sleeping, briefly rouses to verbal stimulation however returns to sleep. Chart review performed, Medications reviewed and Pt care/concerns discussed w/ floor RN. Formal examination/assessment in AM Past Medical History: Past Medical History: Diagnosis Date GERD (gastroesophageal reflux disease) Past Surgical History: Past Surgical History: Procedure Laterality Date FEMUR FRACTURE SURGERY Left Distal Femur ORIF FEMUR FRACTURE SURGERY Left 1984 Midshaft ORIF SKIN GRAFT Right x2 for open tibia fx TIBIA FRACTURE SURGERY Right 1997 ORIF for open fx TIBIAL PLATEAU HARDWARE REMOVAL Right 03/24/2023 INCISION AND DRAINAGE DEEP RIGHT LEG ABSCESS Medications: acetaminophen, 650 mg, Oral, Q4H [START ON 03/25/2023] aspirin, 81 mg, Oral, Daily folic acid, 1 mg, Oral, Daily gabapentin, 300 mg, Oral, Nightly Lidocaine, 1 patch, Topical, Daily piperacillin-tazobactam, 3,375 mg, IntraVENous, q8h thiamine, 100 mg, Oral, Daily vancomycin, 15 mg/kg, IntraVENous, q12h lactated Ringer's, 50 mL/hr, Last Rate: Stopped (03/24/23 0905) PRN medications: HYDROmorphone OR HYDROmorphone, methocarbamol, naloxone, oxyCODONE OR oxyCODONE Allergies: Codeine, Diazepam, and Morphine Social History: Social History Socioeconomic History Marital status: Spouse name: Not on file Number of children: Not on file Years of education: Not on file Highest education level: Not on file Occupational History Not on file Tobacco Use Smoking status: Every Day Packs/day: 1.00 Years: 40.00 Additional pack years: 0.00 Total pack years: 40.00 Types: Cigarettes Smokeless tobacco: Current Types: Chew Tobacco comments: ONLY WHEN AT WORK Vaping Use Vaping Use: Never used Substance and Sexual Activity Alcohol use: Yes Alcohol/week: 6.0 standard drinks of alcohol Types: 6 Standard drinks or equivalent per week Comment: DAILY HAS 6 DRINKS WHISKEY Drug use: Yes Types: Marijuana Comment: ONCE A MONTH Sexual activity: Yes Partners: Female Other Topics Concern Not on file Social History Narrative Not on file Social Determinants of Health Financial Resource Strain: Not on file Food Insecurity: Not on file Transportation Needs: Not on file Physical Activity: Not on file Stress: Not on file Social Connections: Not on file Intimate Partner Violence: Not on file Housing Stability: Not on file Family History: No family history on file. REVIEW OF SYSTEMS: 10 point ROS obtained, as per HPI, otherwise NEG Physical Exam: Vitals: BP 111/76 Pulse 83 Temp 36.6 C (97.9 F) (Temporal) Resp 16 Ht 5' 9.5 (1.765 m) Wt 160 lb (72.6 kg) SpO2 98% BMI 23.29 kg/m BMI Classification: Normal Weight (BMI 18.5-24.9) Pulse Ox: SpO2 Av.2 % Min: 96 % Max: 100 % Supplemental O2: O2 Flow Rate (L/min): 2 L/min Physical Exam Constitutional: General: He is sleeping. Comments: Pt sleeping on arrival to . Briefly wakes to verbal stimuli, returns to sleep. Limited examination HENT: Head: Normocephalic and atraumatic. Eyes: General: Vision grossly intact. Gaze aligned appropriately. Extraocular Movements: Extraocular movements intact. Pulmonary: Effort: Pulmonary effort is normal. Breath sounds: Normal breath sounds. No wheezing. Musculoskeletal: Comments: RLE dressing Skin: General: Skin is dry. Neurological: General: No focal deficit present. Cranial Nerves: Cranial nerves 2-12 are intact. LABS: Recent Results (from the past 24 hour(s)) Culture, Aerobic Bacteria with Gram Stain Collection Time: 03/24/23 7:48 AM Specimen: Leg, Right; Swab Result Value Ref Range Culture Culture in progress Gram Stain Result Many Polymorphonuclear leukocytes per low power field Gram Stain Result No organisms seen Culture, Aerobic Bacteria with Gram Stain Collection Time: 03/24/23 8:15 AM Specimen: Leg, Right; Tissue Result Value Ref Range Culture Culture in progress Gram Stain Result Rare Polymorphonuclear leukocytes per low power field Gram Stain Result No organisms seen Culture, Aerobic Bacteria with Gram Stain Collection Time: 03/24/23 8:19 AM Specimen: Leg, Right; Tissue Result Value Ref Range Culture Culture in progress Gram Stain Result Rare Polymorphonuclear leukocytes per low power field Gram Stain Result No organisms seen Urine Culture: No results found for this or any previous visit. IMAGING: See report Assessment Data: Acute, acute on chronic, unstable/uncontrolled chronic problems/diagnoses: S/P Hardware removal of right tibia and I&D of multiple abscesses - Orthopedic surgical specialty following - PRN analgesia - PT/OT consulted - IV Vanc/Zosyn ordered - Infectious Disease specialty following Stable chronic problems affecting care, new non-acute diagnoses: GERD - PRN Pepcid 20mg ordered Plan As a result of the above findings & factors, the following mgmt was pursued: - am labs, replace lytes prn - PT/OT/CM/SW - delirium precautions: increase activity and limit nighttime disturbances - DVT prophylaxis: encourage ambulation Complexity: Chronic illness with mild to moderate exacerbation, progression, or side effect of tx (MOD). Risk: Admission to hospital-level care was considered or occurred (HIGH). Advance Directive: FULL CODE Anticipated Discharge - Date - TBD - Location - TBD Total time spent (which include face to face and non face to face encounters) : 55 minutes Extended Emergency Contact Information Primary Emergency Contact: Ct Wallace Relation: None Luis Enrique Leach MD Division of Hospitalist Medicine Inpatient Medical Services[place] Work Phone: 03-24-2023 Plan of care note Problem: Pain - Adult Goal: Verbalizes/displays adequate comfort level or baseline comfort level Outcome: Progressing Flowsheets (Taken 03/24/2023 1527) Verbalizes/displays adequate comfort level or baseline comfort level: Assess pain using appropriate pain scale Implement non-pharmacological measures as appropriate and evaluate response Problem: Safety - Adult Goal: Free from fall injury Outcome: Progressing Flowsheets (Taken 03/24/2023 1527) Free from fall injury: Instruct family/caregiver on patient safety Based on caregiver fall risk screen, instruct family/caregiver to ask for assistance with transferring infant if caregiver noted to have fall risk factors [facility] [place] 03-24-2023 Consult note Associated Order (s): IP CONSULT TO INFECTIOUS DISEASES Images from the original note were not included. [facility] - Infectious Diseases Attending Consult Note Reason for Consult: SSI from remote R tibia ORIF, possible osteo History of Present Illness: 52 yo M with chronic infection of his RLE c/b hardware on suppressive cephalexin and bactrim. Pt was [place] [facility] [place] 27 where he sustained compound fractures of his BLEs requiring plates, grafts, flap closure. In April 2018, his incision opened up on its own. Pt nursed it at home with OTC antibiotic ointment, peroxide for 2 months. Pt reports a few weeks later, it recurred. His leg became red, swollen, and painful. Pt was seen in the [place] ED and diagnosed with a bone infection. On 06/21/18, an XR showed a lucency at the fracture site of the proximal tibial shaft concerning for OM. Pt was discharged on bactrim and cephalexin but no documented cultures to guide therapy. 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 Pt was admitted 03/24 for removal of hardware and I&D of multiple abscesses including skin, subcutaneous tissues and bone. Cultures were sent. Pt also has a symptomatic left femoral non union, which will not be addressed until his RLE infection has been treated. Pt received pre op cefazolin and was started on vanc, pip tazo post op. Pt report she feels good. He had two nerve blocks and denies pain. Pt cannot move his toes. Past Medical History: Past Medical History: Diagnosis Date GERD (gastroesophageal reflux disease) Past Surgical History: Past Surgical History: Procedure Laterality Date FEMUR FRACTURE SURGERY Left Distal Femur ORIF FEMUR FRACTURE SURGERY Left 1984 Midshaft ORIF SKIN GRAFT Right x2 for open tibia fx TIBIA FRACTURE SURGERY Right 1997 ORIF for open fx TIBIAL PLATEAU HARDWARE REMOVAL Right 03/24/2023 INCISION AND DRAINAGE DEEP RIGHT LEG ABSCESS Current Medications: Current Facility-Administered Medications Medication Dose Route Frequency Provider Last Rate Last Admin [START ON 03/25/2023] aspirin EC tablet 81 mg 81 mg Oral Daily Osmany Driver JD, MD folic acid (Folvite) tablet 1 mg 1 mg Oral Daily Osmany Driver JD, MD lactated Ringer's (LR) infusion 50 mL/hr IntraVENous Continuous Osmany Driver JD, MD Stopped at 03/24/23 0905 naloxone (Narcan) injection 0.4 mg 0.4 mg IntraVENous q5 min PRN Kendell Griffiths MD oxyCODONE (Roxicodone) immediate release tablet 2.5 mg 2.5 mg Oral q4h PRN Osmany Driver JD, MD Or oxyCODONE (Roxicodone) immediate release tablet 5 mg 5 mg Oral q4h PRN Osmany Driver JD, MD piperacillin-tazobactam (Zosyn) IVPB 3,375 mg 3,375 mg IntraVENous q8h Osmany Driver JD, MD thiamine (Vitamin B1) tablet 100 mg 100 mg Oral Daily Osmany Driver JD, MD vancomycin IVPB 1000 mg in 200 mL NS (premix) 15 mg/kg IntraVENous q12h Osmany Driver JD, MD Allergies: Allergies Allergen Reactions Codeine Nausea Only Diazepam Other Per patient it makes him mean and violent when taken with morphine Morphine Other Per patient when taken with valium makes him mean and violent Social History: Social History Socioeconomic History Marital status: Spouse name: Not on file Number of children: Not on file Years of education: Not on file Highest education level: Not on file Occupational History Not on file Tobacco Use Smoking status: Every Day Packs/day: 1.00 Years: 40.00 Additional pack years: 0.00 Total pack years: 40.00 Types: Cigarettes Smokeless tobacco: Current Types: Chew Tobacco comments: ONLY WHEN AT WORK Vaping Use Vaping Use: Never used Substance and Sexual Activity Alcohol use: Yes Alcohol/week: 6.0 standard drinks of alcohol Types: 6 Standard drinks or equivalent per week Comment: DAILY HAS 6 DRINKS WHISKEY Drug use: Yes Types: Marijuana Comment: ONCE A MONTH Sexual activity: Yes Partners: Female Other Topics Concern Not on file Social History Narrative Not on file Social Determinants of Health Financial Resource Strain: Not on file Food Insecurity: Not on file Transportation Needs: Not on file Physical Activity: Not on file Stress: Not on file Social Connections: Not on file Intimate Partner Violence: Not on file Housing Stability: Not on file Family History: No family history on file. Review of Systems: Review of Systems Constitutional: Negative for chills, diaphoresis and fever. Respiratory: Negative for cough and shortness of breath. Cardiovascular: Negative for chest pain, palpitations and leg swelling. Gastrointestinal: Negative for abdominal pain, diarrhea, nausea and vomiting. Genitourinary: Negative. Musculoskeletal: Positive for gait problem and joint swelling. Skin: Positive for wound. Negative for rash. Psychiatric/Behavioral: Negative. All other systems reviewed and are negative. Vitals: Patient Vitals for the past 24 hrs: BP Temp Temp src Pulse Resp SpO2 Height Weight 03/24/23 1035 111/76 36.6 C (97.9 F) Temporal 83 16 98 % -- -- 03/24/23 1030 129/75 -- -- 70 (!) 28 99 % -- -- 03/24/23 1015 125/81 -- -- 63 17 100 % -- -- 03/24/23 1000 119/76 -- -- 63 15 96 % -- -- 03/24/23 0945 129/76 -- -- 76 18 98 % -- -- 03/24/23 0930 123/67 -- -- 59 (!) 11 98 % -- -- 03/24/23 0915 116/70 -- -- 75 16 100 % -- -- 03/24/23 0903 104/67 36.2 C (97.2 F) Temporal 80 14 99 % -- -- 03/24/23 0715 (!) 141/73 36.8 C (98.2 F) -- 84 16 -- -- -- 03/24/23 0710 124/88 36.7 C (98.1 F) -- 84 16 -- -- -- 03/24/23 0700 129/80 36.7 C (98.1 F) -- 82 14 -- -- -- 03/24/23 0546 133/85 36.8 C (98.3 F) -- 80 -- 96 % 1.765 m (5' 9.5 ) 72.6 kg (160 lb) Physical Exam: Physical Exam Vitals and nursing note reviewed. Constitutional: General: He is not in acute distress. Appearance: Normal appearance. He is normal weight. He is not ill-appearing, toxic-appearing or diaphoretic. HENT: Head: Normocephalic and atraumatic. Right Ear: External ear normal. Left Ear: External ear normal. Nose: Nose normal. No rhinorrhea. Mouth/Throat: Comments: Poor dentition Eyes: General: No scleral icterus. Right eye: No discharge. Left eye: No discharge. Conjunctiva/sclera: Conjunctivae normal. Cardiovascular: Rate and Rhythm: Normal rate and regular rhythm. Heart sounds: Normal heart sounds. Pulmonary: Effort: Pulmonary effort is normal. No respiratory distress. Breath sounds: Normal breath sounds. Abdominal: General: Bowel sounds are normal. There is no distension. Palpations: Abdomen is soft. There is no mass. Tenderness: There is no abdominal tenderness. Musculoskeletal: Comments: Right lower leg with wound vac dressing; tube and trap are negative. Left leg with gross deformity superior to knee; no overlying skin changes Skin: General: Skin is warm and dry. Coloration: Skin is not jaundiced. Findings: No bruising, erythema or rash. Neurological: Mental Status: He is alert and oriented to person, place, and time. Mental status is at baseline. Sensory: Sensory deficit present. Psychiatric: Mood and Affect: Mood normal. Behavior: Behavior normal. Thought Content: Thought content normal. Judgment: Judgment normal. Labs: No results found for: NA , K , CL , CO2 , BUN , CREATININE , GLUCOSE , CALCIUM , PROT , BILITOT , ALKPHOS , AST , ALT , PROCAL No results found for: WBC , HGB , HCT , PLT , GRANULOCYTES , LYMPHOPCT , MONOPCT , LABEOS , BASOPCT , NEUTROABS Micro: 03/24 tissue right leg stain negative, culture in progress 03/24 tissue right leg stain negative, culture in progress 03/24 swab right leg stain negative, culture in progress Lines: PIVs Radiography/Echo/Other: 02/23/23 XR standing BLE Full-length standing films of bilateral lower extremities were obtained which show a healed right tibia with intact lateral plate and hardware. 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 [facility] 03-24-2023 Note Formatting of this n ote might be different from the original. Report called to BALJIT Andrews [facility] 03-24-2023 Note Formatting of this n ote might be different from the original. Report called to BALJIT Andrews [facility] 03-24-2023 Note Patient Name: Татьяна Chowdhury Date of : 1970 Date: 04/04/23 Discharge Summary Admit date: 03/24/2023 Discharge date and time: 03/28/2023 6:06 PM Admitting Physician: Kendell Griffiths MD Admission Diagnoses: Chronic osteomyelitis of right tibia (CMS/HCC) (HCC), Infected tibial hardware Discharge Diagnoses: Chronic osteomyelitis of right tibia (CMS/HCC) (HCC), Infected tibial hardware Problem List: Principal Problem: Chronic osteomyelitis of right tibia (CMS/HCC) (HCC) Body mass index is 23.29 kg/m?. Operative Procedures: Procedure(s) and Anesthesia Type: * HOLD ANTIBIOTICS FOR CULTURES, REMOVAL LATERAL TIBIAL PLATEAU PLATE, INCISION AND DRAINAGE OF DEEP RIGHT LEG ABSCESS, POSSIBLE APPLICATION WOUND VAC - General * INCISION AND DRAINAGE LEG OR ANKLE DEEP ABSCESS OR HEMATOMA Hospital Course: The patient was admitted for the above procedure. After undergoing the above procedure without complications, the patient recovered well in PACU. The patient progressed with physical therapy and met all goals prior to discharge. The patient was tolerating a diet and had their pain controlled prior to discharge. The patient was d/c in stable condition. Disposition: per CM/ Discharge Medications: Medication List START taking these medications aspirin 81 MG EC tablet Take 1 tablet (81 mg) by mouth daily. cefepime 2,000 mg in sodium chloride 0.9 % 50 mL IVPB Infuse 2,000 mg into a venous catheter in the morning and 2,000 mg at noon and 2,000 mg before bedtime. CONTINUE taking these medications acetaminophen 500 MG tablet Commonly known as: Tylenol CEFEPIME HCL IV Start taking on: 2023 GLUCOSAMINE SULFATE PO ibuprofen 200 MG tablet LEVOCETIRIZINE DIHYDROCHLORIDE PO pantoprazole 40 MG EC tablet Commonly known as: ProtoNix raNITIdine 150 MG tablet Commonly known as: Zantac sulfamethoxazole-trimethoprim 800-160 MG tablet Commonly known as: Bactrim DS STOP taking these medications cephalexin 500 MG capsule Commonly known as: Keflex ASK your doctor about these medications oxyCODONE 5 MG immediate release tablet Commonly known as: Roxicodone Take 1 tablet (5 mg) by mouth every 6 hours as needed for severe pain (7-10) for up to 5 days. Ask about: Should I take this medication? Where to Get Your Medications These medications were sent to [id number] - [place], [place] - [address] [facility] [address] [place] [address] aspirin 81 MG EC tablet oxyCODONE 5 MG immediate release tablet You can get these medications from any pharmacy Bring a paper prescription for each of these medications cefepime 2,000 mg in sodium chloride 0.9 % 50 mL IVPB Patient Instructions: The patient will notify the office for any increased bleeding, drainage, or progressively worsening pain, or other concerning symptoms. They have been instructed to report to the emergency room immediately for any chest pain or shortness of breath. Activity Precautions: WBAT on RLE. Work on obtaining range of motion as discussed in the discharge instructions. Patient was provided with appropriate DVT prophylactic medication as well as appropriate analgesia medication. Wound Care: -See discharge instructions Follow-up visit with Dr. Griffiths as scheduled. Signed: Osmany Driver MD 04/04/2023 1:17 PM [facility] 03-24-2023 Note Formatting of this n ote might be different from the original. Family at bedside [facility] 03-24-2023 Note Formatting of this n ote might be different from the original. Family at bedside [facility] 03-24-2023 Note Patient: Heri Barnard er Procedure Summary Date: 03/24/23 Room / Location: [facility] OR [address] [place] [address] Operating Room Anesthesia Start: 0700 Anesthesia Stop: 0906 Procedures: HOLD ANTIBIOTICS FOR CULTURES, REMOVAL LATERAL TIBIAL PLATEAU PLATE, INCISION AND DRAINAGE OF DEEP RIGHT LEG ABSCESS, POSSIBLE APPLICATION WOUND VAC (Right: Leg Lower) INCISION AND DRAINAGE LEG OR ANKLE DEEP ABSCESS OR HEMATOMA (Right: Leg Lower) Diagnosis: Other chronic osteomyelitis, unspecified site (HCC) Displaced comminuted fracture of shaft of left femur, subsequent encounter for closed fracture with malunion (Other chronic osteomyelitis, unspecified site (HCC) [M86.60]) (Displaced comminuted fracture of shaft of left femur, subsequent encounter for closed fracture with malunion [S72.352P]) Surgeons: Kendell Griffiths MD Responsible Provider: Barrie Macario MD Anesthesia Type: general, regional ASA Status: 2 Anesthesia Type: general, regional Vitals Value Taken Time BP 104/67 03/24/23 0902 Temp 97.5 03/24/23 0907 Pulse 79 03/24/23 0906 Resp 15 03/24/23 0906 SpO2 99 % 03/24/23905 Vitals shown include unfiled device data. Anesthesia Post Evaluation Patient location during evaluation: PACU Patient participation: complete - patient participated Level of consciousness: sleepy but conscious Pain management: satisfactory to patient Airway patency: patent Dental Injury: no Cardiovascular status: acceptable, blood pressure returned to baseline and hemodynamically stable Respiratory status: acceptable, spontaneous ventilation and face mask Hydration status: euvolemic Nausea/Vomiting: controlled No notable events documented. Patient can be discharged once all PACU criteria has been met. [facility] 03-24-2023 Note Patient: Heri Barnard er Procedure Summary Date: 03/24/23 Room / Location: [address] Operating Room Anesthesia Start: 0700 Anesthesia Stop: 09 Procedures: HOLD ANTIBIOTICS FOR CULTURES, REMOVAL LATERAL TIBIAL PLATEAU PLATE, INCISION AND DRAINAGE OF DEEP RIGHT LEG ABSCESS, POSSIBLE APPLICATION WOUND VAC (Right: Leg Lower) INCISION AND DRAINAGE LEG OR ANKLE DEEP ABSCESS OR HEMATOMA (Right: Leg Lower) Diagnosis: Other chronic osteomyelitis, unspecified site (HCC) Displaced comminuted fracture of shaft of left femur, subsequent encounter for closed fracture with malunion (Other chronic osteomyelitis, unspecified site (HCC) [M86.60]) (Displaced comminuted fracture of shaft of left femur, subsequent encounter for closed fracture with malunion [S72.352P]) Surgeons: Kendell Griffiths MD Responsible Provider: Barrie Macario MD Anesthesia Type: general, regional ASA Status: 2 Anesthesia Type: general, regional Vitals Value Taken Time BP 104/67 03/24/23 0902 Temp 97.5 03/24/23 0907 Pulse 74 03/24/23 0905 Resp 15 03/24/23 0905 SpO2 99 % 03/24/23 09 Vitals shown include unfiled device data. Anesthesia Post Evaluation Patient location during evaluation: PACU Patient participation: complete - patient participated Level of consciousness: sleepy but conscious Pain management: satisfactory to patient Multimodal analgesia pain management approach Airway patency: patent Two or more strategies used to mitigate risk of obstructive sleep apnea Cardiovascular status: acceptable and hemodynamically stable Respiratory status: acceptable and face mask Hydration status: acceptable No notable events documented. MIPS #430 PONV Patient received an inhalational anesthetic (4554F) Patient does not exhibit three or more risk factors for PONV (X0430)) MIPS # 424 Perioperative Temperature Management Anesthesia time was 60 minutes or longer (4255F) Anesthesai administered was General (inhalational or TIVA) or Neuraxial block (X0424) At least one body temperature greater than 95.8F/35.5C achieved within the 30 mins immediately prior to or the 15 minutes immediately following anesthesia end time (G9771) MIPS #477 Multimodal Pain Management Not emergent case Patient was administered multimodal pain management (two or more drugs and/or interventions excluding systemic opioids) in the periopeartive period occurring at some time between 6 hours prior to anesthesia start time until discharged from PACU (G2148) MIPS #404 Anesthesiology Smoking Abstinence The patient is a current smoker (G9642) (e.g. cigarette, cigar, pipe, e-cigarette/vaping/marijuana) The patient underwent an elective surgery or procedure requiring anesthesia (G9643) The patient received preop smoking cessation instructions prior to the day of surgery or procedure by MD, APC auditor appraiser proxy staff (G9497) The patient did not smoke the day of the procedure (G9644) I completed my handoff to the receiving clinician during which we: 1. Identified the patient 2. Identified the responsible provider 3. Reviewed the pertinent medical history 4. Discussed the surgical course 5. Reviewed intra-op anesthesia management and issues during anesthesia 6. Set expectations for post-procedure period 7. Allowed opportunity for questions and acknowledgement of understanding. [facility] 03-24-2023 Note Peripheral Block Time Out: 03/24/2023 8:56 AM Patient location during procedure: Procedural Start time: 03/24/2023 8:57 AM End time: 03/24/2023 8:59 AM Reason for block: at surgeon's request and post-op pain management Staffing Performed: S[employer]A'S HELPER Resident/SANTA'S HELPER: Marv Valenzuela APRN - SANTA'S HELPER Preanesthetic Checklist Completed: patient identified, IV checked, site marked, risks and benefits discussed, surgical consent and timeout performed Region: Lower Extremities Primary: Adductor Canal Peripheral Block Patient position: supine Prep: ChloraPrep Patient monitoring: heart rate and continuous pulse ox O2: ETT/LMA Laterality: right Injection technique: catheter Guidance: ultrasound guided -image retained in chart, tip of the needle identified by ultraound during injection. Needle Needle: 22G X 80 mm Additional Notes 03/24/2023 8:57 AM Assessment Injection assessment: negative aspiration for heme, no paresthesia on injection, incremental injection, local visualized surrounding nerve on ultrasound and transient paresthesias Heart rate change: no Slow fractionated injection: yes Required Documentation: Relevant anatomy identified (Nerves, Vessels, Muscles), Negative for blood on aspiration, Local anesthetic injected incrementally with intermittent aspiration every 5 mL, Normal resistance with injection, Local anesthetic spread visualized around nerves or plane., No EKG changes noted, No symptoms of toxicity and No paresthesias reported by patient during injectionMedications estFLLAFvqsag-cdfkwhvyvuu-wjfpuijso ne (TAP) syringe - Injection 20 mL - 03/24/2023 8:57:00 AM [facility] 03-24-2023 Note Formatting of this n ote might be different from the original. BREAKFAST TRAY ORDERED FOR PATIENT PER HIS CHOICES [facility] 03-24-2023 Note Formatting of this n ote might be different from the original. BREAKFAST TRAY ORDERED FOR PATIENT PER HIS CHOICES [facility] 03-24-2023 Note Airway Date/Time: 03/24/2023 7:35 AM Urgency: scheduled Airway not difficult General Information and Staff Patient location during procedure: Procedural Anesthesiologist: Barrie Macario MD Resident/SANTA'S HELPER: Adriel Triplett CRNA Performed: SANTA'S HELPER Performed by: Adriel Triplett CRNA Authorized by: Adriel Triplett CRNA Indications and Patient Condition Indications for airway management: anesthesia Sedation level: Asleep Preoxygenated: yes Patient position: sniffing MILS maintained throughout Mask difficulty assessment: 0 - not attempted Final Airway Details Final airway type: endotracheal airway Successful airway: ETT Cuffed: yes Successful intubation technique: direct laryngoscopy Facilitating devices/methods: anterior pressure/BURP Blade: Amadou Blade size: #3 ETT size (mm): 8.0 Cormack-Lehane Classification: grade IIa - partial view of glottis Placement verified by: chest auscultation and capnometry Measured from: lips ETT to lips (cm): 24 Number of attempts at approach: 1 Number of other approaches attempted: 1 Other Attempts Unsuccessful attempted airways: SGA Additional Comments Med student attempted 4 Igel placement unsuccessful; 2nd attempt with 4 AirQ but unable to ventilate adequately; decision made to intubate due to inability to ventilate with SGA [facility] 03-24-2023 Note Peripheral Block Time Out: 03/24/2023 7:02 AM Patient location during procedure: pre-op Start time: 03/24/2023 7:03 AM End time: 03/24/2023 7:07 AM Reason for block: at surgeon's request and post-op pain management Staffing Performed: SANTA'S HELPER Resident/SANTA'S HELPER: Marv Valenzuela APRN - ARCHANA Preanesthetic Checklist Completed: patient identified, IV checked, site marked, risks and benefits discussed, surgical consent, monitors and equipment checked, pre-op evaluation and timeout performed Region: Lower Extremities Primary: Popliteal (Bupivacaine 0.375% with dexamethasone 0.01% with epinephrine 1:200,000) Peripheral Block Patient position: supine Prep: ChloraPrep Patient monitoring: playground monitor, continuous pulse ox and heart rate O2: Nasal cannula Laterality: right Injection technique: single-shot Guidance: ultrasound guided -image retained in chart, tip of the needle identified by ultraound during injection. Local infiltration: lidocaine 2% Infiltration strength: 2 % Dose: 5 mL Needle Needle: 22G X 80 mm Additional Notes Bupivicaine 0.375% with dexamethasone 0.01% with epinephrine 1:200,000 03/24/2023 7:03 AM and midazolam (Versed) injection - IntraVENous 2 mg - 03/24/2023 7:03:00 AM Assessment Injection assessment: negative aspiration for heme, no paresthesia on injection, incremental injection and local visualized surrounding nerve on ultrasound Heart rate change: no Slow fractionated injection: yes Required Documentation: Relevant anatomy identified (Nerves, Vessels, Muscles), Negative for blood on aspiration, Local anesthetic injected incrementally with intermittent aspiration every 5 mL, Normal resistance with injection, Local anesthetic spread visualized around nerves or plane., No EKG changes noted, No symptoms of toxicity, No paresthesias reported by patient during injection and Local anesthetic injected without difficultyMedications midazolam (Versed) injection - IntraVENous 2 mg - 03/24/2023 7:03:00 CUahrURIBFdttbr-qzvgsgpayvt-fnzbeah rine (TAP) syringe - Injection 30 mL - 03/24/2023 7:03:00 AM [facility] 03-24-2023 Note Formatting of this n ote might be different from the original. Patient family/visitor updated by RN at this time. [facility] 03-24-2023 Note Formatting of this n ote might be different from the original. Patient family/visitor updated by RN at this time. [facility] 03-24-2023 Hospital Discharge instructions Tiburcio Camarillo MD - 03/24/2023 9:25 AM EST General Orthopedic Discharge Instructions The following instructions have been prepared to help you when you leave the hospital. These guidelines are for the post-surgery period. Activity: Ease into normal activity as tolerated. Weightbearing status: as tolerated. Medications: see medication instructions. Please be sure to read and understand the information provided by your pharmacy. Ask your Pharmacist if any questions. Wound Care and Hygiene: -Wash hands before touching or changing dressings -Do Not touch incision -Leave prevena dressing in place until your follow up appointment or until battery runs out or cannister fills. Call Your Doctor for: -Excessive bleeding/swelling of incision -Fever with temperature above 101 F Anesthesia Precautions: -Do Not operate any vehicle (automobile, bicycle, motorcycle) or power tools for 24 hours -Do Not drink alcoholic beverages for 24 hours -As precaution to prevent post-operative nausea and vomiting, start your diet with liquids, then progress to light foods. If tolerated, resume normal diet. Additional Instructions: Follow up with Dr. Griffiths in 2 weeks. Call to schedule your appointment as soon as possible. Deysi Grey RN - 03/28/2023 3:11 PM EST Continuity of Care Form Patient Name: Heri Chowdhury : 1970 Admit date: 03/24/2023 Discharge date: Code Status Order: No Order Advance Directives: N Admitting Physician: Kendell Griffiths MD PCP: Awilda Rodney Discharging Nurse: Discharging Hospital Unit/Room#: H-6115/[id number] A Discharging Unit Phone Number: Emergency Contact: Extended Emergency Contact Information Primary Emergency Contact: Ct Wallace Relation: None Past Surgical History: Past Surgical History: Procedure Laterality Date FEMUR FRACTURE SURGERY Left Distal Femur ORIF FEMUR FRACTURE SURGERY Left 1984 Midshaft ORIF SKIN GRAFT Right x2 for open tibia fx TIBIA FRACTURE SURGERY Right 1997 ORIF for open fx TIBIAL PLATEAU HARDWARE REMOVAL Right 03/24/2023 INCISION AND DRAINAGE DEEP RIGHT LEG ABSCESS Immunization History: Immunization History Administered Date(s) Administered Tdap 01/13/2021 Active Problems: Medical Problems Problem List * (Principal) Chronic osteomyelitis of right tibia (CMS/HCC) (HCC) Chronic osteomyelitis (CMS/HCC) (HCC) Overview Signed 01/07/2022 11:13 AM by Adwoa Kirk LPN Seeing ortho and Infectious disease. GERD without esophagitis Isolation/Infection: No active isolations No active infections Nurse Assessment: Last Vital Signs: BP 117/78 (BP Location: Right arm, Patient Position: Lying) Pulse 97 Temp 36.6 C (97.9 F) (Temporal) Resp 16 Ht 1.765 m (5' 9.5 ) Wt 72.6 kg (160 lb) SpO2 99% BMI 23.29 kg/m Last documented pain score (0-10 scale): Last Weight: Wt Readings from Last 1 Encounters: 03/24/23 72.6 kg (160 lb) Mental Status: {REY Patient Mental Status:31977} IV Access: {REY IV Access:44039} Nursing Mobility/ADLs: Walking {LINDA ADL:56599:: Independent } Transfer {LINDA ADL:81316:: Independent } Bathing {LINDA ADL::: Independent } Dressing {LINDA ADL::: Independent } Toileting {LINDA ADL::: Independent } Feeding {LINDA ADL::: Independent } Medical Grade Shoemaker {LINDA ADL::: Independent } Med Delivery {yes/no:41735} Wound Care Documentation and Therapy: Wound/Incision 03/24/23 Incision Calf Anterior;Right (Active) Site Assessment Unable to assess 03/28/23 0910 Ann-Wound Assessment Clean;Dry;Intact 03/25/23 1000 Odor None 03/27/232034 Drainage Amount None 03/27/232034 Primary Dressing Vacuum dressing 03/28/23909 Dressing Status Clean, dry & intact 03/28/23909 Number of days: 4 Elimination: Continence: Bowel: {yes/no:21460} Bladder: {yes/no:08975} Urinary Catheter: {REY Urinary Catheter:65519} Colostomy/Ileostomy/Ileal Conduit: {YES / NO:} Date of Last BM: Intake/Output Summary (Last 24 hours) at 03/28/2023 1511 Last data filed at 03/28/2023 0543 Gross per 24 hour Intake 600 ml Output 750 ml Net -150 ml I/O last 3 completed shifts: In: 1100 (15.2 mL/kg) [P.O.:1100] Out: 1350 (18.6 mL/kg) [Urine:1350 (0.5 mL/kg/hr)] Weight: 72.6 kg Safety Concerns: {REY Safety Concerns:81728} Impairments/Disabilities: {REY Impairments/Disabilities:75934} Nutrition Therapy: Current Nutrition Therapy: {REY Diet List:26546} Routes of Feeding: {routes of feedin} Liquids: {liquid consistency:62965} Daily Fluid Restriction: {daily fluid restriction:30802} Last Modified Barium Swallow with Video (Video Swallowing Test): {done not done:20686} Treatments at the Time of Hospital Discharge: Respiratory Treatments: Oxygen Therapy: {Therapy; copd oxygen:80730} Ventilator: {REY Ventilator:40469} Rehab Therapies: {GEN THERAPY DISCIPLINE SCAL:7333617} Weight Bearing Status/Restrictions: {POD WEIGHT BEARIN} Other Medical Equipment (for information only, NOT a DME order): {Assistive Devices DME:37123} Other Treatments: Patient's personal belongings (please select all that are sent with patient): {REY Patient Belongings:68002} RN SIGNATURE: {E-signature:02986} CASE MANAGEMENT/SOCIAL WORK SECTION Inpatient Status Date: Readmission Risk Assessment Score: @READMISSIONRISKDETAILS@ Discharging to Facility/ Agency Name: [facility] Address: [address] [place] [address] Dialysis Facility (if applicable) Name: Address: Dialysis Schedule: Phone: Fax: Display Designer Outside/Tower Foreman signature: {E-signature:79005} PHYSICIAN SECTION Prognosis: {Rehab Prognosis:94463} Condition at Discharge: {Patient Condition:58135} Rehab Potential (if transferring to Rehab): {Rehab Prognosis:00467} Recommended Labs or Other Treatments After Discharge: Physician Certification: I certify the above information and transfer of Heri Chowdhury is necessary for the continuing treatment of the diagnosis listed and that he requires {REY Level of Care:38066} for {greater less than:85288} 30 days. Update Admission H&P: {REY Changes in H&P:77901} PHYSICIAN SIGNATURE: {E-signature:03770} documented in this encounter [facility] 03-24-2023 Note H&P reviewed. The pa wood was examined and there are no changes to the H&P. [facility] 03-24-2023 Attending History and physical note H&P reviewed. The patient was examined and there are no changes to the H&P. Source Note - Kendell Griffiths MD - 02/22/2023 2:20 PM EST Subjective: Heri is here for surgical discussion on his Right leg. Last seen on 12/07/22. He continues to get intermittent drainage from 3 separate areas on his right leg. He also remains interested in left femur malunion surgery once the right tibial osteomyelitis is addressed. Review of Systems Objective: Ht 5' 9 (1.753 m) Wt 160 lb (72.6 kg) BMI 23.63 kg/m Exam of the right leg shows the lateral incision is well-healed. He has 3 separate areas that are scabbed but have clearly drained recently at the periphery of his previous latissimus flap and skin graft. Swelling overall is mild. Knee range of motion is unrestricted. Exam the left leg shows severe varus deformity of the distal thigh with medial knee joint line tenderness. XRAYS: Full-length standing films of bilateral lower extremities were obtained which show a healed right tibia with intact lateral plate and hardware. 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 Assessment 1. Chronic osteomyelitis (CMS/HCC) (HCC) 2. Closed disp comminuted fracture of shaft of left femur with malunion Plan No orders of the defined types were placed in this encounter. We reviewed that stage one of his treatment requires eradication of infection from his right leg which would require all hardware removed and debridement of all open draining areas which could result in the need for additional coverage if his flap cannot be advanced to obtain primary closure. We discussed that pending his intraoperative findings and my ability to close his wounds, this would dictate his length of stay. He will require several days for PICC line placement and antibiotics at minimum. If he requires coverage he understands he may be in the hospital 7 to 10 days. Once his right leg is healed and infection is eradicated we can then consider left femur malunion surgery which would require removal of his lateral blade plate, distal femoral shaft osteotomy and fixation with a retrograde femoral nail and blocking screws. He measures approximately 1 cm short we discussed using a lengthening nail for his fixation which will also allow us to add length postoperatively. He would like to proceed with his right leg surgery sometime in March which we will schedule at his convenience. Surgery Scheduling Instructions Location: [facility] Duration: 90 minutes Type: SDA Anesthesia: GA + regional block Position: supine Table: Regular, head piece at foot Radiology: Large C-Arm CPT Code: 32805, 79163 Procedure: Removal lateral tibial plateau plate, incision and drainage of deep right leg abscess, possible application wound VAC Equipment: Screwdriver tray, broken screw set available, cystoscopy tubing, wound VAC available Other: Hold antibiotics for cultures follow-up: 2 weeks 2v tibia Electronically signed by Kendell Griffiths M.D. 02/23/2023 at 2:59 PM. [facility] [employer] Work Phone: 03-24-2023 Note Formatting of this n ote might be different from the original. [facility] OR [address] [facility] [address] Dept: [phone] Loc: [phone] Operative Report Patient Name: Heri Chowdhury Date of : 1970 Date of Surgery: 03/24/23 Pre-operative diagnosis: Right tibial plateau fracture with infected hardware and multiple draining sinus tracts Post-operative diagnosis: Same Procedure(s): Removal deep hardware right tibia Incision and drainage of multiple abscesses including skin, subcutaneous tissues, and bone Surgeon: Kendell Griffiths M.D. Produce Field Merchandiser(s): Osmany Driver M.D. and Max Argueta M.D. Anesthesia: General EBL: 50 cc IVF: Crystalloid Specimen: Fluid and/or tissue sent for culture Clinical History/Indication for Surgery The patient is a 52 y.o. year old male who was presents for hardware removal and debridement of right lower extremity infected hardware. Patient has history of remote ORIF at outside facility present with multiple draining abscesses and sinus tracts related to his tibial plateau fixation. Of note patient also has a symptomatic left femoral malunion and he was counseled that we would need to get his infection of his right leg controlled prior to proceeding with correction of this deformity.. Typical indications for surgery were reviewed and operative treatment was recommended. Risks of surgery in general were reviewed including, but not limited to, persistent infection, need for additional procedures, poor wound healing, damage to normal structures as well as medical complications such as NJ, stroke, PE, DVT, and even . Specific indications and/or risks of this procedure were discussed as well including, but not limited to: Potential need for coverage by plastic surgery, need for PICC line antibiotics. Pt was given opportunity to ask questions and consider his options. He ultimately elected to proceed with surgery. No guarantees were given or implied. Operative Narration The patient was identified in the pre-operative holding area. The surgical site was identified and marked. Informed consent was obtained. The patient was then brought to the operating room and placed supine on the operating table. Anesthesia was administered and care of the head, neck, and airway was maintained by the anesthesia staff throughout the entire procedure. All bony prominences were identified and padded. A tourniquet was applied to the operative extremity which was then prepped and draped in the usual sterile fashion. A surgical timeout was performed. Preoperative antibiotics were held for cultures. After exsanguination the tourniquet was inflated. A portion of his previous lateral incision was opened to expose the proximal hardware. There is thick copious scar between skin and plate which was incised and reflected using Bovie. All the proximal screws were removed. This incision was extended slightly anteriorly to excise the draining sinus directly over the anterior tibia to also expose the anterior to posterior lag screw. The leg screw was removed without difficulty. Each of the 3 shaft screws in the plate were localized using fluoroscopy and small stab incisions were made to allow removal. The medial leg had 2 separate draining sinuses. 1 of which directly communicated to the healed fracture site. This was excised and tissue sent for specimen. This was traced directly to the medial aspect of the previous fracture site. There was a hole communicating with the canal of the tibia which was aggressively curetted with tissue sent for specimen. There is 1 additional small area of purulent drainage more distal and medial near a previous skin grafting. This was also excised and seem to track towards the posterior aspect of the tibia although we could not trace in identify any grossly necrotic or purulent tissue deep to the subcutaneous layer. After excisional debridement was completed which included skin, subcutaneous tissues, muscle, and bone, copious irrigation was performed using gravity fed lavage. Each screw hole was irrigated using a Angiocath and syringe. Stimulant cement pellets were created using vancomycin powder and these were placed within the tibial fracture site through the medial hole as well as through the lateral holes of the proximal tibia. X-ray confirmed successful removal hardware and placement of the antibiotic pellets. Closure was then performed in layers. The medial wound was closed using retention sutures in standard sutures. The skin did approximate was relatively tight. Because of this incisional wound vacs were applied over all incisions and this obtained excellent seal. Once the patient was awakened from anesthesia, they were transported to the PACU in stable condition, having tolerated surgery well with no immediate complications. Postoperative Plan Weightbearing as tolerated Empiric antibiotics Infectious disease consult This operative report was prepared and signed by Kendell Griffiths MD at 03/24/23, 11:55 AM [facility] 03-24-2023 Note Formatting of this n ote is different from the original. Date: 03/24/2023 Location: [facility] OR Name: Heri Chowdhury, : 1970, Diagnosis Pre-op Diagnosis * Other chronic osteomyelitis, unspecified site (HCC) [M86.60] * Displaced comminuted fracture of shaft of left femur, subsequent encounter for closed fracture with malunion [S72.352P] Post-op Diagnosis * Other chronic osteomyelitis, unspecified site (HCC) [M86.60] * Displaced comminuted fracture of shaft of left femur, subsequent encounter for closed fracture with malunion [S72.352P] Procedures HOLD ANTIBIOTICS FOR CULTURES, REMOVAL LATERAL TIBIAL PLATEAU PLATE, INCISION AND DRAINAGE OF DEEP RIGHT LEG ABSCESS, POSSIBLE APPLICATION WOUND VAC 54433 - TN REMOVAL IMPLANT DEEP INCISION AND DRAINAGE LEG OR ANKLE DEEP ABSCESS OR HEMATOMA 33551 - TN INCISION & DRAINAGE LEG/ANKLE ABSCESS/HEMATOMA Surgeons * Kendell Griffiths - Primary Procedure Summary Anesthesia: General ASA: II Estimated Blood Loss: <50cc Drains: * None in log * Specimens ID Source Type Tests Collected By Collected At Frozen? Priority Lab ID A Leg, Right Swab AEROBIC AND ANAEROBIC CULTURE WITH STAIN Kendell Griffiths MD 03/24/23 0748 Routine [id number], [id number] Description: RIGHT LEG ABSESS B Leg, Right Tissue AEROBIC AND ANAEROBIC CULTURE WITH STAIN Kendell Griffiths MD 03/24/23 0815 Routine [id number], [id number] Description: RIGHT LEG ABSESS #2 C Leg, Right Tissue AEROBIC AND ANAEROBIC CULTURE WITH STAIN Kendell Griffiths MD 03/24/23 0819 Routine [id number], [id number] Description: RIGHT LEG ABSESS #3 Implants Type Name Action Serial No. [employer] Bone GRAFT BONE RAPID 10CC STIMULAN - [id number] Implanted Staff: Laborer Cutting Tool: Rancho Lyman RN Scrub Person: Malachi Moscoso RN Findings: see detailed op report Complications: None; patient tolerated the procedure well. Specimens Collected: Order Name Source Comment Collection Info Order Time AEROBIC AND ANAEROBIC CULTURE WITH STAIN Leg, Right Pre-op diagnosis: Other chronic osteomyelitis, unspecified site (HCC) [M86.60] Displaced comminuted fracture of shaft of left femur, subsequent encounter for closed fracture with malunion [S72.352P] Collected By: Kendell Griffiths MD 03/24/2023 7:49 AM AEROBIC AND ANAEROBIC CULTURE WITH STAIN Leg, Right Pre-op diagnosis: Other chronic osteomyelitis, unspecified site (HCC) [M86.60] Displaced comminuted fracture of shaft of left femur, subsequent encounter for closed fracture with malunion [S72.352P] Collected By: Kendell Griffiths MD 03/24/2023 8:18 AM AEROBIC AND ANAEROBIC CULTURE WITH STAIN Leg, Right Pre-op diagnosis: Other chronic osteomyelitis, unspecified site (HCC) [M86.60] Displaced comminuted fracture of shaft of left femur, subsequent encounter for closed fracture with malunion [S72.352P] Collected By: Kendell Griffiths MD 03/24/2023 8:19 AM POTASSIUM WITH MG REFLEX For patients on dialysis to draw potassium day of surgery 03/24/2023 5:36 AM PROTHROMBIN TIME If patient on coumadin within 4 days prior. 03/24/2023 5:36 AM Blood Products: None Prophylactic Antibiotics: Procedure appropriate prophylactic antibiotic(s) given within 1 hour of surgical incision (two hours if receiving Vancomycin or flouroquinolone) Plan: WBAT No plans for further surgical intervention this admission Activity as tolerated PTOT CIWA protocol Medicine c/s APS c/s for postop pain control ID c/s Abx per ID Intra-op cx p Elevate op extremity CBC x2 Dressing: prevena - switch to portable prevena @dc Skin checks DVT ppx: ASA 81mg daily Pain, medical management per primary F/u with Dr. Griffiths in 2 weeks Admit to ortho [facility] 03-24-2023 Note Formatting of this n ote might be different from the original. [facility] OR [address] [facility] [address] Dept: [phone] Loc: [phone] Operative Report Patient Name: Heri Chowdhury Date of : 1970 Date of Surgery: 03/24/23 Pre-operative diagnosis: Right tibial plateau fracture with infected hardware and multiple draining sinus tracts Post-operative diagnosis: Same Procedure(s): Removal deep hardware right tibia Incision and drainage of multiple abscesses including skin, subcutaneous tissues, and bone Surgeon: Kendell Griffiths M.D. Produce Field Merchandiser(s): Osmany Driver M.D. and Max Argueta M.D. Anesthesia: General EBL: 50 cc IVF: Crystalloid Specimen: Fluid and/or tissue sent for culture Clinical History/Indication for Surgery The patient is a 52 y.o. year old male who was presents for hardware removal and debridement of right lower extremity infected hardware. Patient has history of remote ORIF at outside facility present with multiple draining abscesses and sinus tracts related to his tibial plateau fixation. Of note patient also has a symptomatic left femoral malunion and he was counseled that we would need to get his infection of his right leg controlled prior to proceeding with correction of this deformity.. Typical indications for surgery were reviewed and operative treatment was recommended. Risks of surgery in general were reviewed including, but not limited to, persistent infection, need for additional procedures, poor wound healing, damage to normal structures as well as medical complications such as NJ, stroke, PE, DVT, and even . Specific indications and/or risks of this procedure were discussed as well including, but not limited to: Potential need for coverage by plastic surgery, need for PICC line antibiotics. Pt was given opportunity to ask questions and consider his options. He ultimately elected to proceed with surgery. No guarantees were given or implied. Operative Narration The patient was identified in the pre-operative holding area. The surgical site was identified and marked. Informed consent was obtained. The patient was then brought to the operating room and placed supine on the operating table. Anesthesia was administered and care of the head, neck, and airway was maintained by the anesthesia staff throughout the entire procedure. All bony prominences were identified and padded. A tourniquet was applied to the operative extremity which was then prepped and draped in the usual sterile fashion. A surgical timeout was performed. Preoperative antibiotics were held for cultures. After exsanguination the tourniquet was inflated. A portion of his previous lateral incision was opened to expose the proximal hardware. There is thick copious scar between skin and plate which was incised and reflected using Bovie. All the proximal screws were removed. This incision was extended slightly anteriorly to excise the draining sinus directly over the anterior tibia to also expose the anterior to posterior lag screw. The leg screw was removed without difficulty. Each of the 3 shaft screws in the plate were localized using fluoroscopy and small stab incisions were made to allow removal. The medial leg had 2 separate draining sinuses. 1 of which directly communicated to the healed fracture site. This was excised and tissue sent for specimen. This was traced directly to the medial aspect of the previous fracture site. There was a hole communicating with the canal of the tibia which was aggressively curetted with tissue sent for specimen. There is 1 additional small area of purulent drainage more distal and medial near a previous skin grafting. This was also excised and seem to track towards the posterior aspect of the tibia although we could not trace in identify any grossly necrotic or purulent tissue deep to the subcutaneous layer. After excisional debridement was completed which included skin, subcutaneous tissues, muscle, and bone, copious irrigation was performed using gravity fed lavage. Each screw hole was irrigated using a Angiocath and syringe. Stimulant cement pellets were created using vancomycin powder and these were placed within the tibial fracture site through the medial hole as well as through the lateral holes of the proximal tibia. X-ray confirmed successful removal hardware and placement of the antibiotic pellets. Closure was then performed in layers. The medial wound was closed using retention sutures in standard sutures. The skin did approximate was relatively tight. Because of this incisional wound vacs were applied over all incisions and this obtained excellent seal. Once the patient was awakened from anesthesia, they were transported to the PACU in stable condition, having tolerated surgery well with no immediate complications. Postoperative Plan Weightbearing as tolerated Empiric antibiotics Infectious disease consult This operative report was prepared and signed by Kendell Griffiths MD at 03/24/23, 11:55 AM [facility] 03-24-2023 Note Formatting of this n ote is different from the original. Date: 03/24/2023 Location: [facility] OR Name: Heri Chowdhury, : 1970, Diagnosis Pre-op Diagnosis * Other chronic osteomyelitis, unspecified site (HCC) [M86.60] * Displaced comminuted fracture of shaft of left femur, subsequent encounter for closed fracture with malunion [S72.352P] Post-op Diagnosis * Other chronic osteomyelitis, unspecified site (HCC) [M86.60] * Displaced comminuted fracture of shaft of left femur, subsequent encounter for closed fracture with malunion [S72.352P] Procedures HOLD ANTIBIOTICS FOR CULTURES, REMOVAL LATERAL TIBIAL PLATEAU PLATE, INCISION AND DRAINAGE OF DEEP RIGHT LEG ABSCESS, POSSIBLE APPLICATION WOUND VAC 40503 - TN REMOVAL IMPLANT DEEP INCISION AND DRAINAGE LEG OR ANKLE DEEP ABSCESS OR HEMATOMA 26658 - TN INCISION & DRAINAGE LEG/ANKLE ABSCESS/HEMATOMA Surgeons * Kendell Griffiths - Primary Procedure Summary Anesthesia: General ASA: II Estimated Blood Loss: <50cc Drains: * None in log * Specimens ID Source Type Tests Collected By Collected At Frozen? Priority Lab ID A Leg, Right Swab AEROBIC AND ANAEROBIC CULTURE WITH STAIN Kendell Griffiths MD 03/24/23 0748 Routine [id number], [id number] Description: RIGHT LEG ABSESS B Leg, Right Tissue AEROBIC AND ANAEROBIC CULTURE WITH STAIN Kendell Griffiths MD 03/24/23 0815 Routine [id number], [id number] Description: RIGHT LEG ABSESS #2 C Leg, Right Tissue AEROBIC AND ANAEROBIC CULTURE WITH STAIN Kendell Griffiths MD 03/24/23 0819 Routine [id number], [id number] Description: RIGHT LEG ABSESS #3 Implants Type Name Action Serial No. [employer] Bone GRAFT BONE RAPID 10CC STIMULAN - [id number] Implanted Staff: Laborer Cutting Tool: Rancho Lyman RN Scrub Person: Malachi Moscoso RN Findings: see detailed op report Complications: None; patient tolerated the procedure well. Specimens Collected: Order Name Source Comment Collection Info Order Time AEROBIC AND ANAEROBIC CULTURE WITH STAIN Leg, Right Pre-op diagnosis: Other chronic osteomyelitis, unspecified site (HCC) [M86.60] Displaced comminuted fracture of shaft of left femur, subsequent encounter for closed fracture with malunion [S72.352P] Collected By: Kendell Griffiths MD 03/24/2023 7:49 AM AEROBIC AND ANAEROBIC CULTURE WITH STAIN Leg, Right Pre-op diagnosis: Other chronic osteomyelitis, unspecified site (HCC) [M86.60] Displaced comminuted fracture of shaft of left femur, subsequent encounter for closed fracture with malunion [S72.352P] Collected By: Kendell Griffiths MD 03/24/2023 8:18 AM AEROBIC AND ANAEROBIC CULTURE WITH STAIN Leg, Right Pre-op diagnosis: Other chronic osteomyelitis, unspecified site (HCC) [M86.60] Displaced comminuted fracture of shaft of left femur, subsequent encounter for closed fracture with malunion [S72.352P] Collected By: Kendell Griffiths MD 03/24/2023 8:19 AM POTASSIUM WITH MG REFLEX For patients on dialysis to draw potassium day of surgery 03/24/2023 5:36 AM PROTHROMBIN TIME If patient on coumadin within 4 days prior. 03/24/2023 5:36 AM Blood Products: None Prophylactic Antibiotics: Procedure appropriate prophylactic antibiotic(s) given within 1 hour of surgical incision (two hours if receiving Vancomycin or flouroquinolone) Plan: WBAT No plans for further surgical intervention this admission Activity as tolerated PTOT CIWA protocol Medicine c/s APS c/s for postop pain control ID c/s Abx per ID Intra-op cx p Elevate op extremity CBC x2 Dressing: prevena - switch to portable prevena @dc Skin checks DVT ppx: ASA 81mg daily Pain, medical management per primary F/u with Dr. Griffiths in 2 weeks Admit to ortho [facility] 03-24-2023 History and physical note H&P reviewed. The patient was examined and there are no changes to the H&P. Source Note - Kendell Griffiths MD - 02/22/2023 2:20 PM EST Subjective: Heri is here for surgical discussion on his Right leg. Last seen on 12/07/22. He continues to get intermittent drainage from 3 separate areas on his right leg. He also remains interested in left femur malunion surgery once the right tibial osteomyelitis is addressed. Review of Systems Objective: Ht 5' 9 (1.753 m) Wt 160 lb (72.6 kg) BMI 23.63 kg/m Exam of the right leg shows the lateral incision is well-healed. He has 3 separate areas that are scabbed but have clearly drained recently at the periphery of his previous latissimus flap and skin graft. Swelling overall is mild. Knee range of motion is unrestricted. Exam the left leg shows severe varus deformity of the distal thigh with medial knee joint line tenderness. XRAYS: Full-length standing films of bilateral lower extremities were obtained which show a healed right tibia with intact lateral plate and hardware. 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 Assessment 1. Chronic osteomyelitis (CMS/HCC) (HCC) 2. Closed disp comminuted fracture of shaft of left femur with malunion Plan No orders of the defined types were placed in this encounter. We reviewed that stage one of his treatment requires eradication of infection from his right leg which would require all hardware removed and debridement of all open draining areas which could result in the need for additional coverage if his flap cannot be advanced to obtain primary closure. We discussed that pending his intraoperative findings and my ability to close his wounds, this would dictate his length of stay. He will require several days for PICC line placement and antibiotics at minimum. If he requires coverage he understands he may be in the hospital 7 to 10 days. Once his right leg is healed and infection is eradicated we can then consider left femur malunion surgery which would require removal of his lateral blade plate, distal femoral shaft osteotomy and fixation with a retrograde femoral nail and blocking screws. He measures approximately 1 cm short we discussed using a lengthening nail for his fixation which will also allow us to add length postoperatively. He would like to proceed with his right leg surgery sometime in March which we will schedule at his convenience. Surgery Scheduling Instructions Location: [facility] Duration: 90 minutes Type: SDA Anesthesia: GA + regional block Position: supine Table: Regular, head piece at foot Radiology: Large C-Arm CPT Code: 69594, 44235 Procedure: Removal lateral tibial plateau plate, incision and drainage of deep right leg abscess, possible application wound VAC Equipment: Screwdriver tray, broken screw set available, cystoscopy tubing, wound VAC available Other: Hold antibiotics for cultures follow-up: 2 weeks 2v tibia Electronically signed by Kendell Griffiths M.D. 02/23/2023 at 2:59 PM. documented in this encounter [facility] 03-23-2023 Note Subjective: Heri is here for surgical discussion on his Right leg. Last seen on 12/07/22. He continues to get intermittent drainage from 3 separate areas on his right leg. He also remains interested in left femur malunion surgery once the right tibial osteomyelitis is addressed. Review of Systems Objective: Ht 5' 9 (1.753 m) Wt 160 lb (72.6 kg) BMI 23.63 kg/m? Exam of the right leg shows the lateral incision is well-healed. He has 3 separate areas that are scabbed but have clearly drained recently at the periphery of his previous latissimus flap and skin graft. Swelling overall is mild. Knee range of motion is unrestricted. Exam the left leg shows severe varus deformity of the distal thigh with medial knee joint line tenderness. XRAYS: Full-length standing films of bilateral lower extremities were obtained which show a healed right tibia with intact lateral plate and hardware. 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 Assessment 1. Chronic osteomyelitis (CMS/HCC) (HCC) 2. Closed disp comminuted fracture of shaft of left femur with malunion Plan No orders of the defined types were placed in this encounter. We reviewed that stage one of his treatment requires eradication of infection from his right leg which would require all hardware removed and debridement of all open draining areas which could result in the need for additional coverage if his flap cannot be advanced to obtain primary closure. We discussed that pending his intraoperative findings and my ability to close his wounds, this would dictate his length of stay. He will require several days for PICC line placement and antibiotics at minimum. If he requires coverage he understands he may be in the hospital 7 to 10 days. Once his right leg is healed and infection is eradicated we can then consider left femur malunion surgery which would require removal of his lateral blade plate, distal femoral shaft osteotomy and fixation with a retrograde femoral nail and blocking screws. He measures approximately 1 cm short we discussed using a lengthening nail for his fixation which will also allow us to add length postoperatively. He would like to proceed with his right leg surgery sometime in March which we will schedule at his convenience. Abdoulaye Welsh PA-C Orthopedic Surgery [facility] 03-23-2023 History and physical note Subjective: Heri is here for surgical discussion on his Right leg. Last seen on 12/07/22. He continues to get intermittent drainage from 3 separate areas on his right leg. He also remains interested in left femur malunion surgery once the right tibial osteomyelitis is addressed. Review of Systems Objective: Ht 5' 9 (1.753 m) Wt 160 lb (72.6 kg) BMI 23.63 kg/m Exam of the right leg shows the lateral incision is well-healed. He has 3 separate areas that are scabbed but have clearly drained recently at the periphery of his previous latissimus flap and skin graft. Swelling overall is mild. Knee range of motion is unrestricted. Exam the left leg shows severe varus deformity of the distal thigh with medial knee joint line tenderness. XRAYS: Full-length standing films of bilateral lower extremities were obtained which show a healed right tibia with intact lateral plate and hardware. 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 Assessment 1. Chronic osteomyelitis (CMS/HCC) (HCC) 2. Closed disp comminuted fracture of shaft of left femur with malunion Plan No orders of the defined types were placed in this encounter. We reviewed that stage one of his treatment requires eradication of infection from his right leg which would require all hardware removed and debridement of all open draining areas which could result in the need for additional coverage if his flap cannot be advanced to obtain primary closure. We discussed that pending his intraoperative findings and my ability to close his wounds, this would dictate his length of stay. He will require several days for PICC line placement and antibiotics at minimum. If he requires coverage he understands he may be in the hospital 7 to 10 days. Once his right leg is healed and infection is eradicated we can then consider left femur malunion surgery which would require removal of his lateral blade plate, distal femoral shaft osteotomy and fixation with a retrograde femoral nail and blocking screws. He measures approximately 1 cm short we discussed using a lengthening nail for his fixation which will also allow us to add length postoperatively. He would like to proceed with his right leg surgery sometime in March which we will schedule at his convenience. Abdoulaye Welsh PA-C Orthopedic Surgery [facility] 03-23-2023 History and physical note Subjective: Heri is here for surgical discussion on his Right leg. Last seen on 12/07/22. He continues to get intermittent drainage from 3 separate areas on his right leg. He also remains interested in left femur malunion surgery once the right tibial osteomyelitis is addressed. Review of Systems Objective: Ht 5' 9 (1.753 m) Wt 160 lb (72.6 kg) BMI 23.63 kg/m Exam of the right leg shows the lateral incision is well-healed. He has 3 separate areas that are scabbed but have clearly drained recently at the periphery of his previous latissimus flap and skin graft. Swelling overall is mild. Knee range of motion is unrestricted. Exam the left leg shows severe varus deformity of the distal thigh with medial knee joint line tenderness. XRAYS: Full-length standing films of bilateral lower extremities were obtained which show a healed right tibia with intact lateral plate and hardware. 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 Assessment 1. Chronic osteomyelitis (CMS/HCC) (HCC) 2. Closed disp comminuted fracture of shaft of left femur with malunion Plan No orders of the defined types were placed in this encounter. We reviewed that stage one of his treatment requires eradication of infection from his right leg which would require all hardware removed and debridement of all open draining areas which could result in the need for additional coverage if his flap cannot be advanced to obtain primary closure. We discussed that pending his intraoperative findings and my ability to close his wounds, this would dictate his length of stay. He will require several days for PICC line placement and antibiotics at minimum. If he requires coverage he understands he may be in the hospital 7 to 10 days. Once his right leg is healed and infection is eradicated we can then consider left femur malunion surgery which would require removal of his lateral blade plate, distal femoral shaft osteotomy and fixation with a retrograde femoral nail and blocking screws. He measures approximately 1 cm short we discussed using a lengthening nail for his fixation which will also allow us to add length postoperatively. He would like to proceed with his right leg surgery sometime in March which we will schedule at his convenience. Abdoulaye Welsh PA-C Orthopedic Surgery documented in this encounter [facility] 03-21-2023 Note Patient: Heri Akil Procedure Information Date/Time: 03/24/23729 Procedures: HOLD ANTIBIOTICS FOR CULTURES, REMOVAL LATERAL TIBIAL PLATEAU PLATE, INCISION AND DRAINAGE OF DEEP RIGHT LEG ABSCESS, POSSIBLE APPLICATION WOUND VAC (Right: Leg Lower) INCISION AND DRAINAGE LEG OR ANKLE DEEP ABSCESS OR HEMATOMA (Right: Leg Lower) Location: [facility] OR [address] [place] [address] Operating Room Surgeons: Kendell Griffiths MD Relevant Problems GI (+) GERD without esophagitis Other (+) Chronic osteomyelitis (CMS/HCC) (HCC) (+) Chronic osteomyelitis of right tibia (CMS/HCC) (HCC) Past Medical History: Past Medical History: No date: GERD (gastroesophageal reflux disease) Past Surgical History: Past Surgical History: No date: FEMUR FRACTURE SURGERY; Left Comment: Distal Femur ORIF 1984: FEMUR FRACTURE SURGERY; Left Comment: Midshaft ORIF No date: SKIN GRAFT; Right Comment: x2 for open tibia fx 1997: TIBIA FRACTURE SURGERY; Right Comment: ORIF for open fx Social History: TOBACCO: reports that he has been smoking cigarettes. He has a 40 pack-year smoking history. His smokeless tobacco use includes chew. ETOH: reports current alcohol use of about 6.0 standard drinks of alcohol per week. Social History Substance and Sexual Activity Drug Use Yes ? Types: Marijuana Comment: ONCE A MONTH Family History: No family history on file. Screening: unknown Clinical information reviewed: Tobacco Allergies Med Hx Surg Hx Fam Hx Soc Hx Physical Exam Airway Mallampati: II TM distance: >3 FB Neck ROM: full Mouth Open: normal Cardiovascular Dental dentition normal Pulmonary Abdominal Anesthesia Plan patient is NPO appropriate Any family history or previous problems with anesthesia no ASA 2 general and regional Any family history or previous problems with anesthesia no(PAT phone call EKG, H&H ordered dos) The patient is a current smoker. Anesthetic plan and risks discussed with patient. ERAS Type PNB ERAS ADWOA Screening Labs: No results found for: WBC , HGB , HCT , MCV , PLT No results found for: NA , K , CL , CO2 , BUN , CREATININE , GLUCOSE , CALCIUM , PROT , BILIRUBINFL , ALKPHOS , AST , ALT , EGFR , GLOB Pain Score: 5 - Moderate pain No echocardiogram results found for the past 14 days No results found for this or any previous visit. [facility] 03-01-2023 Telephone encounter Note PAT orders done [employer] Work Phone: 03-01-2023 Miscellaneous Notes PAT orders done Case # [id number] PAT phone call on 03/21/2023 @ 11:00am Authorized per [employer] [facility] Auth # [id number] Images from the original note were not included. Authorization request faxed: Called [employer] at followed prompts to have an inpatient authorization request form faxed to [phone] Please enter PAT orders: [facility] PAT: Surgery: 03/24/2023 @ 7:30am, Case # Procedure: Removal lateral tibial plateau plate, incision and drainage of deep right leg abscess, possible application wound VAC DX: Chronic osteomyelitis (CMS/HCC) ([facility]) - M86.60 Closed disp comminuted fracture of shaft of left femur of malunion - S72.352P Anesthesia: GA + regional block Insurance: [employer] Allergies: Codeine, Diazepam, Morphine Additional Equipment: Ancef 2 Surgery Scheduling Instructions Location: [facility] Duration: 90 minutes (105 mins) Type: SDA Anesthesia: GA + regional block Position: supine Table: Regular, head piece at foot Radiology: Large C-Arm CPT Code: 71610, 07250 Procedure: Removal lateral tibial plateau plate, incision and drainage of deep right leg abscess, possible application wound VAC Equipment: Screwdriver tray, broken screw set available, cystoscopy tubing, wound VAC available Other: Hold antibiotics for cultures follow-up: 2 weeks 2v tibia documented in this encounter [facility] 02-28-2023 Telephone encounter Note Case # [id number] PAT phone call on 03/21/2023 @ 11:00am [facility] Auth # [id number] [facility] 02-28-2023 Miscellaneous Notes Case # [id number] PAT phone call on 03/21/2023 @ 11:00am Authorized per [employer] Auth # [id number] Images from the original note were not included. Authorization request faxed: Called [facility] at followed prompts to have an inpatient authorization request form faxed to [phone] Please enter PAT orders: [facility] PAT: Surgery: 03/24/2023 @ 7:30am, Case # Procedure: Removal lateral tibial plateau plate, incision and drainage of deep right leg abscess, possible application wound VAC DX: Chronic osteomyelitis (CMS/HCC) ([facility]) - M86.60 Closed disp comminuted fracture of shaft of left femur of malunion - S72.352P Anesthesia: GA + regional block Insurance: [employer] Allergies: Codeine, Diazepam, Morphine Additional Equipment: Ancef 2 Surgery Scheduling Instructions Location: [facility] Duration: 90 minutes (105 mins) Type: SDA Anesthesia: GA + regional block Position: supine Table: Regular, head piece at foot Radiology: Large C-Arm CPT Code: 46855, 34971 Procedure: Removal lateral tibial plateau plate, incision and drainage of deep right leg abscess, possible application wound VAC Equipment: Screwdriver tray, broken screw set available, cystoscopy tubing, wound VAC available Other: Hold antibiotics for cultures follow-up: 2 weeks 2v tibia documented in this encounter [facility] 02-24-2023 Telephone encounter Note Images from the original note were not included. Authorization request faxed: [facility] 02-24-2023 Miscellaneous Notes Images from the original note were not included. Authorization request faxed: [facility] at followed prompts to have an inpatient authorization request form faxed to [phone] Please enter PAT orders: [facility] PAT: Surgery: . 03/24/2023 @ 7:30am, Case # Procedure: Removal lateral tibial plateau plate, incision and drainage of deep right leg abscess, possible application wound VAC DX: Chronic osteomyelitis (CMS/HCC) ([facility]) - M86.60 Closed disp comminuted fracture of shaft of left femur of malunion - S72.352P Anesthesia: GA + regional block Insurance: [employer] [place] [employer] Allergies: Codeine, Diazepam, Morphine Additional Equipment: Ancef 2 Surgery Scheduling Instructions Location: [facility] Duration: 90 minutes (105 mins) Type: SDA Anesthesia: GA + regional block Position: supine Table: Regular, head piece at foot Radiology: Large C-Arm CPT Code: 37750, 90584 Procedure: Removal lateral tibial plateau plate, incision and drainage of deep right leg abscess, possible application wound VAC Equipment: Screwdriver tray, broken screw set available, cystoscopy tubing, wound VAC available Other: Hold antibiotics for cultures follow-up: 2 weeks 2v tibia documented in this encounter [facility] 02-24-2023 [facility]phone [facility] followed prompts to have an inpatient authorization request form faxed to [phone] [facility] 02-23-2023 Telephone encounter Note Please enter PAT orders: [facility] PAT: Surgery: . 03/24/2023 @ 7:30am, Case # Procedure: Removal lateral tibial plateau plate, incision and drainage of deep right leg abscess, possible application wound VAC DX: Chronic osteomyelitis (CMS/HCC) ([facility]) - M86.60 Closed disp comminuted fracture of shaft of left femur of malunion - S72.352P Anesthesia: GA + regional block Insurance: [employer] [place] [employer] Allergies: Codeine, Diazepam, Morphine Additional Equipment: Ancef 2 Surgery Scheduling Instructions Location: [facility] Duration: 90 minutes (105 mins) Type: SDA Anesthesia: GA + regional block Position: supine Table: Regular, head piece at foot Radiology: Large C-Arm CPT Code: 12479, 69783 Procedure: Removal lateral tibial plateau plate, incision and drainage of deep right leg abscess, possible application wound VAC Equipment: Screwdriver tray, broken screw set available, cystoscopy tubing, wound VAC available Other: Hold antibiotics for cultures follow-up: 2 weeks 2v tibia [facility] 02-22-2023 Note Subjective: Heri is here for surgical discussion on his Right leg. Last seen on 12/07/22. He continues to get intermittent drainage from 3 separate areas on his right leg. He also remains interested in left femur malunion surgery once the right tibial osteomyelitis is addressed. Review of Systems Objective: Ht 5' 9 (1.753 m) Wt 160 lb (72.6 kg) BMI 23.63 kg/m? Exam of the right leg shows the lateral incision is well-healed. He has 3 separate areas that are scabbed but have clearly drained recently at the periphery of his previous latissimus flap and skin graft. Swelling overall is mild. Knee range of motion is unrestricted. Exam the left leg shows severe varus deformity of the distal thigh with medial knee joint line tenderness. XRAYS: Full-length standing films of bilateral lower extremities were obtained which show a healed right tibia with intact lateral plate and hardware. 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 Assessment 1. Chronic osteomyelitis (CMS/HCC) (HCC) 2. Closed disp comminuted fracture of shaft of left femur with malunion Plan No orders of the defined types were placed in this encounter. We reviewed that stage one of his treatment requires eradication of infection from his right leg which would require all hardware removed and debridement of all open draining areas which could result in the need for additional coverage if his flap cannot be advanced to obtain primary closure. We discussed that pending his intraoperative findings and my ability to close his wounds, this would dictate his length of stay. He will require several days for PICC line placement and antibiotics at minimum. If he requires coverage he understands he may be in the hospital 7 to 10 days. Once his right leg is healed and infection is eradicated we can then consider left femur malunion surgery which would require removal of his lateral blade plate, distal femoral shaft osteotomy and fixation with a retrograde femoral nail and blocking screws. He measures approximately 1 cm short we discussed using a lengthening nail for his fixation which will also allow us to add length postoperatively. He would like to proceed with his right leg surgery sometime in March which we will schedule at his convenience. Surgery Scheduling Instructions Location: [facility] Duration: 90 minutes Type: SDA Anesthesia: GA + regional block Position: supine Table: Regular, head piece at foot Radiology: Large C-Arm CPT Code: 13528, 14941 Procedure: Removal lateral tibial plateau plate, incision and drainage of deep right leg abscess, possible application wound VAC Equipment: Screwdriver tray, broken screw set available, cystoscopy tubing, wound VAC available Other: Hold antibiotics for cultures follow-up: 2 weeks 2v tibia Electronically signed by Kendell Griffiths M.D. 02/23/2023 at 2:59 PM. [facility] 02-22-2023 History of Present illness Narrative Subjective: Heri is here for surgical discussion on his Right leg. Last seen on 12/07/22. He continues to get intermittent drainage from 3 separate areas on his right leg. He also remains interested in left femur malunion surgery once the right tibial osteomyelitis is addressed. Review of Systems Objective: Ht 5' 9 (1.753 m) Wt 160 lb (72.6 kg) BMI 23.63 kg/m Exam of the right leg shows the lateral incision is well-healed. He has 3 separate areas that are scabbed but have clearly drained recently at the periphery of his previous latissimus flap and skin graft. Swelling overall is mild. Knee range of motion is unrestricted. Exam the left leg shows severe varus deformity of the distal thigh with medial knee joint line tenderness. XRAYS: Full-length standing films of bilateral lower extremities were obtained which show a healed right tibia with intact lateral plate and hardware. 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 Assessment 1. Chronic osteomyelitis (CMS/HCC) (HCC) 2. Closed disp comminuted fracture of shaft of left femur with malunion Plan No orders of the defined types were placed in this encounter. We reviewed that stage one of his treatment requires eradication of infection from his right leg which would require all hardware removed and debridement of all open draining areas which could result in the need for additional coverage if his flap cannot be advanced to obtain primary closure. We discussed that pending his intraoperative findings and my ability to close his wounds, this would dictate his length of stay. He will require several days for PICC line placement and antibiotics at minimum. If he requires coverage he understands he may be in the hospital 7 to 10 days. Once his right leg is healed and infection is eradicated we can then consider left femur malunion surgery which would require removal of his lateral blade plate, distal femoral shaft osteotomy and fixation with a retrograde femoral nail and blocking screws. He measures approximately 1 cm short we discussed using a lengthening nail for his fixation which will also allow us to add length postoperatively. He would like to proceed with his right leg surgery sometime in March which we will schedule at his convenience. Surgery Scheduling Instructions Location: [facility] Duration: 90 minutes Type: SDA Anesthesia: GA + regional block Position: supine Table: Regular, head piece at foot Radiology: Large C-Arm CPT Code: 62663, 39043 Procedure: Removal lateral tibial plateau plate, incision and drainage of deep right leg abscess, possible application wound VAC Equipment: Screwdriver tray, broken screw set available, cystoscopy tubing, wound VAC available Other: Hold antibiotics for cultures follow-up: 2 weeks 2v tibia Electronically signed by Kendell Griffiths M.D. 02/23/2023 at 2:59 PM. documented in this encounter [facility] 12-07-2022 History of Present illness Narrative Subjective: Heri is approximately 25 years post op from ORIF of right tibia . Overall pain is moderate. Knee pain is moderate. He denies new numbness or tingling sincesurgery. He denies other new complaints. He is still taking Bactrim and Keflex as suppressive antibiotics. He has two scabbed areas on his leg that occasionally become inflamed and intermittently draining. Psych he is being managed by Dr. Downing for infectious disease. He is interested in hardware removal to attempt to cure his infection of his right leg. Also of note his job and social situation is significantly improved and he would like to proceed with surgery next March with plans to address his left femur malunion later in the same calendar year to maximize his deductible. Review of Systems Objective: Ht 5' 9.5 (1.765 m) Wt 160 lb (72.6 kg) BMI 23.29 kg/m Previous right leg incisions are well-healed. He has 2 scabbed areas which have clearly drained recently 1 on the more anterior medial aspect of his leg and one of the more posterior medial aspect of his leg. XRAYS: 2v right tib/fib show the tibia fracture is healed with retained anterolateral hardware and a single lag screw. Assessment 1. Chronic osteomyelitis (CMS/HCC) (HCC) 2. Closed disp comminuted fracture of shaft of left femur with malunion Plan No orders of the defined types were placed in this encounter. We discussed the 2 options to address his right leg. One would be to remove hardware and debride and clean through the incision necessary for hardware removal but not specifically addressing the sinus tract. This would leave him with some risk of recurrence. The other option would be to excise the sinus tracts and eschar which could potentially result in the defect requiring either skin grafting or local versus free flap coverage. He is understanding of this and would like to be aggressive to attempt to cure his right leg and also get ready for left leg malunion surgery. I will see him back in February in order to plan for his March surgery. We will need a full-length standing film. Electronically signed by Kendell Griffiths M.D. 12/07/2022 at 2:46 PM. documented in this encounter [facility] 11-29-2022 Telephone encounter Note This is done. Patient scheduled on 12/07/[address] Griffiths [facility] 11-29-2022 Miscellaneous Notes This is done. Patient scheduled on 12/07/[address] Ct to let her know that we will have to the patient in for an appointment prior to scheduling sx. No answer. LVM with information and number for her to call us back to schedule. Patient will need appointment with updated films. Name of Caller: Ct Contact Phone Number: [phone] Reason for Appointment: SO of Pt requesting to schedule sx last discussed at [facility] 08/27/2020. Please call Ct to advise if sx can be scheduled or if Pt needs seen in office first. Office Name: Dr Griffiths documented in this encounter [facility] [facility] 11-29-2022 Telephone encounter Note Called Ct to let her know that we will have to the patient in for an appointment prior to scheduling sx. No answer. LVM with information and number for her to call us back to schedule. [facility] 11-29-2022 Telephone encounter Note Patient will need appointment with updated films. [facility] [employer] Work Phone: 11-29-2022 Telephone encounter Note Name of Caller: Ct Contact Phone Number: [phone] Reason for Appointment: SO of Pt requesting to schedule sx last discussed at [facility] 08/27/2020. Please call Ct to advise if sx can be scheduled or if Pt needs seen in office first. Office Name: Dr Griffiths [facility] 11-02-2022 History of Present illness Narrative [facility] Infectious Diseases Attending Outpatient Consult Note Chief Complaint Patient presents with Follow-up 6 month follow up for RLE hardware infection HISTORY OF PRESENT ILLNESS The patient is a 52 y.o. 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 Pt was in [place] [facility] [place] 27 where he sustained compound fractures of his BLEs requiring plates, grafts, flap closure. In April 2018, his incision opened up on its own. Pt nursed it at home with OTC antibiotic ointment, peroxide for 2 months. Pt reports a few weeks later, it recurred. His leg became red, swollen, and painful. Pt was seen in the [place] ED and diagnosed with a bone infection. On 06/21/18, an XR showed a lucency at the fracture site of the proximal tibial shaft concerning for OM. Pt was discharged on bactrim and cephalexin. Pt has continued on bactrim, cephalexin with plans for eventual surgery. Pt reports he was able to refinance his house. He was hoping to have surgery this calendar year because he has already met his deductible. He has not contacted Dr. Griffiths's office. Overall, pt feels his leg is unchanged. Past Medical History: Diagnosis Date GERD (gastroesophageal reflux disease) Past Surgical History: Procedure Laterality Date FEMUR FRACTURE SURGERY Left Distal Femur ORIF FEMUR FRACTURE SURGERY Left 1984 Midshaft ORIF SKIN GRAFT Right x2 for open tibia fx TIBIA FRACTURE SURGERY Right 1997 ORIF for open fx Current Outpatient Medications Medication Sig Dispense Refill acetaminophen (Tylenol) 500 MG tablet Take 500 mg by mouth every 6 hours as needed. cephalexin (Keflex) 500 MG capsule Take 1 capsule (500 mg) by mouth in the morning and 1 capsule (500 mg) at noon and 1 capsule (500 mg) in the evening and 1 capsule (500 mg) before bedtime. 120 capsule 0 GLUCOSAMINE SULFATE PO Take by mouth 3 times daily. ibuprofen 200 MG tablet Take 200 mg by mouth every 6 hours as needed. LEVOCETIRIZINE DIHYDROCHLORIDE PO Take by mouth daily. Multiple Vitamin (Multi-Vitamin) tablet Take 1 tablet by mouth in the morning. pantoprazole (ProtoNix) 40 MG EC tablet Take 40 mg by mouth. sulfamethoxazole-trimethoprim (Bactrim DS) 800-160 MG tablet Take 1 tablet by mouth 2 times daily. 60 tablet 0 Flibjun-Pfdhqnesbwemh-Mzalsxrc (EXCEDRIN EXTRA STRENGTH PO) Take 500 mg by mouth. raNITIdine (Zantac) 150 MG tablet Take 150 mg by mouth in the morning and 150 mg before bedtime. No current facility-administered medications for this visit. Allergies Allergen Reactions Codeine Nausea Only Diazepam Other Per patient it makes him mean and violent when taken with morphine Morphine Other Per patient when taken with valium makes him mean and violent Social History Socioeconomic History Marital status: Spouse name: Not on file Number of children: Not on file Years of education: Not on file Highest education level: Not on file Occupational History Not on file Tobacco Use Smoking status: Every Day Packs/day: 1.00 Types: Cigarettes Smokeless tobacco: Current Substance and Sexual Activity Alcohol use: Yes Alcohol/week: 6.0 standard drinks of alcohol Drug use: Never Sexual activity: Yes Partners: Female Other Topics Concern Not on file Social History Narrative Not on file Social Determinants of Health Financial Resource Strain: Not on file Food Insecurity: Not on file Transportation Needs: Not on file Physical Activity: Not on file Stress: Not on file Social Connections: Not on file Intimate Partner Violence: Not on file Housing Stability: Not on file No family history on file. Review of Systems Constitutional: Negative for chills, diaphoresis and fever. Respiratory: Negative for cough and shortness of breath. Cardiovascular: Positive for leg swelling. Negative for chest pain and palpitations. Gastrointestinal: Negative for abdominal pain, diarrhea, nausea and vomiting. Genitourinary: Negative. Musculoskeletal: Positive for gait problem. Skin: Positive for wound. Negative for rash. Psychiatric/Behavioral: Negative. All other systems reviewed and are negative. There were no vitals taken for this visit. Physical Exam Gen: awake, alert, NAD; answering questions appropriately and elaborately. Micro: None Lines: none Radiography/Echo/Other: No new imaging Antimicrobials, Start/End Dates: Cephalexin Bactrim ASSESSMENT/PLAN: 1) chronic tibial osteomyelitis c/b underlying hardware-- seems to get better on cephalexin, bactrim, but no culture data to guide antibiotics. Pt's best possible outcome involves surgical intervention with accompanying antibiotics, but pt unwilling to do surgery at this time 2) encounter for fpc antibiotics - cbc with diff, chem comp, ESR; labs to be mailed to patient - refill cephalexin, bactrim for chronic suppression of chronic osteo/hardware infection pending surgery - pt aware this is not a cure, but a temporizing measure and may fail early or late. Any breakthrough infections will likely be due to a resistant organism - pt counseled surgery and IV antibiotics are his best approach at a cure - all questions answered; pt voiced understanding of the plan and is amenable. Patient was seen today via Telehealth by agreement and consent. I used the following Telehealth technology: Audio capability only. Total length of call 12 minutes. The patient was offered and advised video for a more comprehensive evaluation, but the patient declined or was unable to use video. Patient location: Patient Location: Home. This patient encounter is appropriate and reasonable under the circumstances: transportation issues . The patient has been advised of the potential risks and limitations of this mode of treatment (including but not limited to the absence of in-person examination) and has agreed to be treated in a remote fashion in spite of them. Any and all of the patient's/patient's family's questions on this issue have been answered and I have made no promises or guarantees to the patient. The patient has also been advised to contact this office for worsening conditions or problems, and seek emergency medical treatment and/or call 911 if the patient deems either necessary. The patient stated that they are currently in the [facility]. If the patient is a minor, permission has been obtained by the parent or guardian for the patient to receive medical care at this visit. documented in this encounter [facility] 10-11-2022 History of Present illness Narrative 30 day refill prescribed documented in this encounter [facility] 05-17-2022 Miscellaneous Notes Patient has been identified by name and date of : Yes Requested Prescriptions Pending Prescriptions Disp Refills pantoprazole DR (PROTONIX) 40 mg tablet 90 tablet 3 Sig: Take 1 tablet by mouth daily before breakfast. Take on empty stomach, 1/2 hr before meal. RX INSTRUCTIONS: Patient aware RX will be sent to pharmacy. No need to notify patient. July Ly MA REY: 01/2021 Patient is due for follow up. L/m Last refill: 05/2021 Patient has been identified by name and date of : Yes Requested Prescriptions Pending Prescriptions Disp Refills pantoprazole DR (PROTONIX) 40 mg tablet 90 tablet 3 Sig: Take 1 tablet by mouth daily before breakfast. Take on empty stomach, 1/2 hr before meal. RX INSTRUCTIONS: Patient aware RX will be sent to pharmacy. No need to notify patient. [facility] encounter [facility] 12-24-2021 Miscellaneous Notes Patient notified for taken to medical records for pharmacy picking tech Linnea Jamison Cma Ready. Type of form: physical Form received via walk in When form is completed, call patient to pharmacy picking tech Form has been forwarded to awilda rodney's desk Patient was last seen 01/13/21 for physical Linnea Jamison Cma documented in this encounter [facility] 08-06-2021 Note HNO ID: [id number] Author: RT Noam(R) Service: Radiology Author Type: Technologist Type: Progress Notes Filed: 08/06/2021 9:37 AM Note Text: Radiology Service Progress Note PATIENT NAME: Heri Chowdhury DATE OF SERVICE: August 06, 2021 TIME: 9:28 AM PATIENT IDENTITY VERIFICATION COMPLETED USING TWO (2) IDENTIFIERS: Name and Date of confirmed by patient verbally. FALL SCREENING: Has the patient had 2 falls in the last year or 1 fall with injury or currently using an Ambulatory Assistive Device (Walker, Cane, Wheelchair, Crutches, etc.)? No PATIENT GENDER DATA: Male PATIENT RELEVANT IMPLANT DATA REVIEWED: Yes RADIOLOGY DEPARTMENT: General X-ray: Exam(s) Completed: Upper Extremity X-Ray(s): Shoulder, AP / TRUE AP / AXILLARY left PERIPHERAL IV DATA: Not applicable SIGNED BY: RT Noam(R) August 06, 2021 9:28 AM [facility] 08-06-2021 Note HNO ID: [id number] Author: Awilda Rodney PA-C Service: ? Author Type: Physician Produce Field Merchandiser Type: Progress Notes Filed: 08/06/2021 9:57 AM Note Text: Chief Complaint Patient presents with: Pain (Shoulder Pain): left HPI Heri Chowdhury is a 51 year old male who presents here today for Above Complaints.. Patient has hx of chronic shoulder and elbow pain. Yesterday he was moving a sheet of plywood and felt/heard what he describes as a tearing and he dropped the plywood. He was unable to use that shoulder much the rest of the day. State he can move his arm but at certain angles the pain intensifies. No n/t. Past medical history, appointments, medications, allergies reviewed. Previous Medical History PAST MEDICAL HISTORY Diagnosis Date - Bone infection (HCC) 06/2020 Right Lower Leg - Chronic osteomyelitis (HCC) 01/13/2021 Seeing ortho and Infectious disease. - COPD (chronic obstructive pulmonary disease) (HCC) Previous Surgical History PAST SURGICAL HISTORY Procedure Laterality Date - FRACTURE SURGERY - LEG SURGERY HX Bilateral - MUSCLE-SKIN GRAFT, LEG Family History FAMILY HISTORY Problem Relation Age of Onset - COPD Mother - Heart Father Patient Allergies ALLERGIES Allergen Reactions - Morphine Mental Status Change Per patient when taken with valium makes him mean and violent - Valium [Diazepam] Mental Status Change Per patient it makes him mean and violent when taken with morphine Current Medications Current Outpatient Medications on File Prior to Visit Medication Sig - pantoprazole DR (PROTONIX) 40 mg tablet Take 1 tablet by mouth daily before breakfast. Take on empty stomach, 1/2 hr before meal. - ibuprofen (MOTRIN) 200 mg tablet Take 200 mg by mouth every 6 hours as needed. - cephALEXin (KEFLEX) 500 mg capsule Take 500 mg by mouth four times daily. - sulfamethoxazole-trimethoprim (BACTRIM DS,SEPTRA DS) 800-160 mg per tablet Take 1 tablet by mouth once daily. - glucosamine sulfate (GLUCOSAMINE ORAL) Take by mouth as directed. - levocetirizine dihydrochloride (24HR ALLERGY RELIEF ORAL) Take by mouth once daily. - multivitamin tablet Take 1 tablet by mouth once daily. - aspirin/acetaminophen/caffeine (EXCEDRIN EXTRA STRENGTH ORAL) Take 500 mg by mouth as directed. (Patient not taking: Reported on 09/04/2020 ) No current facility-administered medications on file prior to visit. Social History Social History Tobacco Use - Smoking status: Current Every Day Smoker Packs/day: 1.00 Years: 40.00 Pack years: 40.00 - Smokeless tobacco: Current User Types: Snuff Substance Use Topics - Alcohol use: Yes Alcohol/week: 6.0 standard drinks Types: 6 Cans of beer per week - Drug use: Yes Types: Marijuana Review of Symptoms REVIEW OF SYSTEMS see hpi EXAM: BP 122/76 (BP Site: Left Arm, BP Position: Sitting, BP Cuff Size: Regular Adult) Pulse 96 Temp 36.8 ?C (98.3 ?F) Resp 18 Wt 74.4 kg (164 lb) BMI 23.87 kg/m? General Appearance: Well appearing, alert, in no acute distress, well-hydrated, well nourished.. Musculoskeletal: left shoulder with FROM however very restrictive and painful. Empty can test positive for pain. +lipscomb. Speeds test + for pain. Neg deya sign. NVI. Peripheral Pulses: Normal. Health Maintenance List PNEUMOCOCCAL(1 - PCV) Never done LUNG CANCER SCREENING Never done SHINGRIX VACCINE(1 of 2) Never done COVID-19 VACCINE(1) due on 01/13/2022 DEPRESSION SCREENING due on 09/02/2021 INFLUENZA(Season Ended) due on 11/12/2021 DIABETES SCREEN due on 01/14/2024 LIPID SCREEN due on 01/13/2026 COLORECTAL CANCER SCREENING due on 07/03/2030 DTAP,TDAP,TD(2 - Td or Tdap) due on 01/13/2031 HEPATITIS C SCREENING Completed HIV SCREENING Completed Data reviewed ASSESSMENT/PLAN: 1. Acute pain of left shoulder - ICD9: 719.41, ICD10: M25.512 Xray today. Will set up with Ortho Discussed Physical Therapy and possible MRI. - XR SHOULDER GENERAL 3V OR MORE AP/TRUE AP/OTHER LEFT - CONSULT TO ORTHOPAEDICS Awilda Rodney PA-C [facility] 08-06-2021 History of Present illness Narrative Chief Complaint Patient presents with: Pain (Shoulder Pain): left HPI Heri Chowdhury is a 51 year old male who presents here today for Above Complaints.. Patient has hx of chronic shoulder and elbow pain. Yesterday he was moving a sheet of plywood and felt/heard what he describes as a tearing and he dropped the plywood. He was unable to use that shoulder much the rest of the day. State he can move his arm but at certain angles the pain intensifies. No n/t. Past medical history, appointments, medications, allergies reviewed. Previous Medical History PAST MEDICAL HISTORY Diagnosis Date Bone infection ([facility]) 06/2020 Right Lower Leg Chronic osteomyelitis ([facility]) 01/13/2021 Seeing ortho and Infectious disease. COPD (chronic obstructive pulmonary disease) ([facility]) Previous Surgical History PAST SURGICAL HISTORY Procedure Laterality Date FRACTURE SURGERY LEG SURGERY HX Bilateral MUSCLE-SKIN GRAFT, LEG Family History FAMILY HISTORY Problem Relation Age of Onset COPD Mother Heart Father Patient Allergies ALLERGIES Allergen Reactions Morphine Mental Status Change Per patient when taken with valium makes him mean and violent Valium [Diazepam] Mental Status Change Per patient it makes him mean and violent when taken with morphine Current Medications Current Outpatient Medications on File Prior to Visit Medication Sig pantoprazole DR (PROTONIX) 40 mg tablet Take 1 tablet by mouth daily before breakfast. Take on empty stomach, 1/2 hr before meal. ibuprofen (MOTRIN) 200 mg tablet Take 200 mg by mouth every 6 hours as needed. cephALEXin (KEFLEX) 500 mg capsule Take 500 mg by mouth four times daily. sulfamethoxazole-trimethoprim (BACTRIM DS,SEPTRA DS) 800-160 mg per tablet Take 1 tablet by mouth once daily. glucosamine sulfate (GLUCOSAMINE ORAL) Take by mouth as directed. levocetirizine dihydrochloride (24HR ALLERGY RELIEF ORAL) Take by mouth once daily. multivitamin tablet Take 1 tablet by mouth once daily. aspirin/acetaminophen/caffeine (EXCEDRIN EXTRA STRENGTH ORAL) Take 500 mg by mouth as directed. (Patient not taking: Reported on 09/04/2020 ) No current facility-administered medications on file prior to visit. Social History Social History Tobacco Use Smoking status: Current Every Day Smoker Packs/day: 1.00 Years: 40.00 Pack years: 40.00 Smokeless tobacco: Current User Types: Snuff Substance Use Topics Alcohol use: Yes Alcohol/week: 6.0 standard drinks Types: 6 Cans of beer per week Drug use: Yes Types: Marijuana Review of Symptoms REVIEW OF SYSTEMS see hpi EXAM: BP 122/76 (BP Site: Left Arm, BP Position: Sitting, BP Cuff Size: Regular Adult) Pulse 96 Temp 36.8 C (98.3 F) Resp 18 Wt 74.4 kg (164 lb) BMI 23.87 kg/m General Appearance: Well appearing, alert, in no acute distress, well-hydrated, well nourished.. Musculoskeletal: left shoulder with FROM however very restrictive and painful. Empty can test positive for pain. +lipscomb. Speeds test + for pain. Neg deya sign. NVI. Peripheral Pulses: Normal. Health Maintenance List PNEUMOCOCCAL(1 - PCV) Never done LUNG CANCER SCREENING Never done SHINGRIX VACCINE(1 of 2) Never done COVID-19 VACCINE(1) due on 01/13/2022 DEPRESSION SCREENING due on 09/02/2021 INFLUENZA(Season Ended) due on 11/12/2021 DIABETES SCREEN due on 01/14/2024 LIPID SCREEN due on 01/13/2026 COLORECTAL CANCER SCREENING due on 07/03/2030 DTAP,TDAP,TD(2 - Td or Tdap) due on 01/13/2031 HEPATITIS C SCREENING Completed HIV SCREENING Completed Data reviewed ASSESSMENT/PLAN: 1. Acute pain of left shoulder - ICD9: 719.41, ICD10: M25.512 Xray today. Will set up with Ortho Discussed Physical Therapy and possible MRI. - XR SHOULDER GENERAL 3V OR MORE AP/TRUE AP/OTHER LEFT - CONSULT TO ORTHOPAEDICS Awilda Rodney PA-C documented in this encounter [facility] 01-13-2021 Note HNO ID: [id number] Author: Awilda Rodney PA-C Service: ? Author Type: Physician Produce Field Merchandiser Type: Progress Notes Filed: 01/13/2021 8:45 AM Note Text: Chief Complaint Patient presents with: Physical HPI Heri Chowdhury is a 50 year old male who presents here today for physical/est care. Patient without previous PCP. Patient has seen me a couple times for acute concerns and is here today for establish care physical. Patient with hx of chronic osteomyelitis who is seeing both infectious disease specialist and orthopedics. Saw ortho back in the summer to discuss removal all hardware in his right tibia. The hold up is mostly financial. ID has continued suppression atb until this can be achieved. Last 4 Encounter Wt Readings: Date: Wt: 09/04/2020 73.9 kg (163 lb) 06/26/2020 68.5 kg (151 lb 0.2 oz) 06/23/2020 68.5 kg (151 lb) 06/09/2020 68 kg (150 lb) Past medical history, appointments, medications, allergies reviewed. Previous Medical History PAST MEDICAL HISTORY Diagnosis Date - Bone infection (HCC) 06/2020 Right Lower Leg - COPD (chronic obstructive pulmonary disease) (HCC) Previous Surgical History PAST SURGICAL HISTORY Procedure Laterality Date - FRACTURE SURGERY - LEG SURGERY HX Bilateral - MUSCLE-SKIN GRAFT, LEG Family History FAMILY HISTORY Problem Relation Age of Onset - COPD Mother - Heart Father Patient Allergies ALLERGIES Allergen Reactions - Morphine Mental Status Change Per patient when taken with valium makes him mean and violent - Valium [Diazepam] Mental Status Change Per patient it makes him mean and violent when taken with morphine Current Medications Current Outpatient Medications on File Prior to Visit Medication Sig - ibuprofen (MOTRIN) 200 mg tablet Take 200 mg by mouth every 6 hours as needed. - pantoprazole DR (PROTONIX) 40 mg tablet Take 1 tablet by mouth daily before breakfast. Take on empty stomach, 1/2 hr before meal. - cephALEXin (KEFLEX) 500 mg capsule Take 500 mg by mouth four times daily. - sulfamethoxazole-trimethoprim (BACTRIM DS,SEPTRA DS) 800-160 mg per tablet Take 1 tablet by mouth once daily. - multivitamin tablet Take 1 tablet by mouth once daily. - glucosamine sulfate (GLUCOSAMINE ORAL) Take by mouth as directed. - levocetirizine dihydrochloride (24HR ALLERGY RELIEF ORAL) Take by mouth once daily. - aspirin/acetaminophen/caffeine (EXCEDRIN EXTRA STRENGTH ORAL) Take 500 mg by mouth as directed. (Patient not taking: Reported on 09/04/2020 ) No current facility-administered medications on file prior to visit. Social History Social History Tobacco Use - Smoking status: Current Every Day Smoker Packs/day: 1.00 Years: 40.00 Pack years: 40.00 - Smokeless tobacco: Current User Types: Snuff Substance Use Topics - Alcohol use: Yes Alcohol/week: 6.0 standard drinks Types: 6 Cans of beer per week - Drug use: Yes Types: Marijuana Review of Symptoms REVIEW OF SYSTEMS GENERAL: No weight loss, malaise or fevers HEENT: No changes in hearing or vision, no nose bleeds or other nasal problems NECK: Negative for lumps, goiter, pain and significant neck swelling RESPIRATORY: Negative for cough, hemoptysis, wheezing, COPD, dyspnea or shortness of breath CARDIOVASCULAR: Negative for chest pain, leg swelling, CHF or palpitations GI: Negative for abdominal discomfort, blood in stools or black stools, change in bowel habit, heart burn, nausea, vomiting : No history of dysuria, frequency or incontinence MUSCULOSKELETAL: Negative for worsening joint pain or swelling, back pain or muscle pain SKIN: Negative for lesions, rash, and itching PSYCH: Negative for sleep disturbance, mood disorder and recent psychosocial stressors HEMATOLOGY/LYMPHOLOGY: Negative for prolonged bleeding, bruising easily or swollen nodes ENDOCRINE: Negative for cold or heat intolerance, polyuria, polydipsia and goiter NEURO: No history of headaches, syncope, paralysis, seizures or tremors EXAM: BP 120/80 (BP Site: Left Arm, BP Position: Sitting, BP Cuff Size: Regular Adult) Pulse 80 Temp 36.3 ?C (97.3 ?F) Resp 18 General Appearance: Well appearing, alert, in no acute distress, well-hydrated, well nourished.. Skin: Skin color, texture, turgor normal, no suspicious rashes or lesions. Head: Normocephalic, no masses, lesions, tenderness or abnormalities. Eyes: Anicteric sclera. Pupils are equally round and reactive to light. Extraocular movements are intact. . Ears: External ears normal, canals clear, TMs pearly munoz. Nose/Sinuses: deferred- mask. Oropharynx: deferred- mask. Neck: Supple, no adenopathy; thyroid symmetric, normal size, no bruits. Lungs: Lungs clear to auscultation. No wheezing, rhonchi, rales.. Heart: RRR without murmur, gallop, or rubs. No ectopy. Abdomen: Normal abdominal exam, Abdomen soft, non-tender. Bowel sounds normal. No masses, organomegaly. Extremities: multip (more content not included)... [facility] 09-04-2020 Note HNO ID: [id number] Author: Awilda Rodney PA-C Service: ? Author Type: Physician Produce Field Merchandiser Type: Progress Notes Filed: 09/04/2020 8:05 AM Note Text: Chief Complaint Patient presents with: F/U 3 Month HPI Heri Chowdhury is a 50 year old male who presents here today for discussion about osteomyelitis.. Patient without PCP. I have seen the patient once before for a few concerns. Today patient is back because he wants our opinion on his orthopedics plan to treat the osteomyelitis of his right leg. Patient has had osteomyelitis of right tibia for 2 years. He had previously chosen suppression antibiotics for treatment however now the area is draining regardless of atb therapy. He went back to ortho last week to discuss options. Ortho would like to removal all hardware, debride the area and the insert atb impregnated stimulan bullets. Per patient it would be outpt procedure and only out of work for 2-3 month post surgical recovery period. Patient states he is ready to get this fixed. Recently had upper and lower scopes. All were normal. Last 4 Encounter Wt Readings: Date: Wt: 09/04/2020 73.9 kg (163 lb) 06/26/2020 68.5 kg (151 lb 0.2 oz) 06/23/2020 68.5 kg (151 lb) 06/09/2020 68 kg (150 lb) Past medical history, appointments, medications, allergies reviewed. Previous Medical History PAST MEDICAL HISTORY Diagnosis Date - Bone infection (HCC) 06/2020 Right Lower Leg - COPD (chronic obstructive pulmonary disease) (HCC) Previous Surgical History PAST SURGICAL HISTORY Procedure Laterality Date - FRACTURE SURGERY - LEG SURGERY HX Bilateral - MUSCLE-SKIN GRAFT, LEG Family History FAMILY HISTORY Problem Relation Age of Onset - COPD Mother - Heart Father Patient Allergies ALLERGIES Allergen Reactions - Morphine Mental Status Change Per patient when taken with valium makes him mean and violent - Valium [Diazepam] Mental Status Change Per patient it makes him mean and violent when taken with morphine Current Medications Current Outpatient Medications on File Prior to Visit Medication Sig - pantoprazole DR (PROTONIX) 40 mg tablet Take 1 tablet by mouth daily before breakfast. Take on empty stomach, 1/2 hr before meal. - cephALEXin (KEFLEX) 500 mg capsule Take 500 mg by mouth four times daily. - sulfamethoxazole-trimethoprim (BACTRIM DS,SEPTRA DS) 800-160 mg per tablet Take 1 tablet by mouth once daily. - multivitamin tablet Take 1 tablet by mouth once daily. - glucosamine sulfate (GLUCOSAMINE ORAL) Take by mouth as directed. - levocetirizine dihydrochloride (24HR ALLERGY RELIEF ORAL) Take by mouth once daily. - aspirin/acetaminophen/caffeine (EXCEDRIN EXTRA STRENGTH ORAL) Take 500 mg by mouth as directed. (Patient not taking: Reported on 09/04/2020 ) No current facility-administered medications on file prior to visit. Social History Social History Tobacco Use - Smoking status: Current Every Day Smoker Packs/day: 1.00 Years: 40.00 Pack years: 40.00 - Smokeless tobacco: Current User Types: Snuff Substance Use Topics - Alcohol use: Yes Alcohol/week: 6.0 standard drinks Types: 6 Cans of beer per week - Drug use: Yes Types: Marijuana Review of Symptoms REVIEW OF SYSTEMS GENERAL: No weight loss, malaise or fevers RESPIRATORY: Negative for cough, hemoptysis, wheezing, COPD, dyspnea or shortness of breath CARDIOVASCULAR: Negative for chest pain, leg swelling, hypertension, CHF or palpitations EXAM: BP 98/60 Pulse 100 Temp 36.2 ?C (97.1 ?F) Resp 18 Wt 73.9 kg (163 lb) BMI 23.73 kg/m? General Appearance: Well appearing, alert, in no acute distress, well-hydrated, well nourished.. Neck: Supple, no adenopathy; thyroid symmetric, normal size, no bruits. Lungs: Lungs clear to auscultation. No wheezing, rhonchi, rales.. Heart: RRR without murmur, gallop, or rubs. No ectopy. Peripheral Pulses: Normal. Health Maintenance List COVID-19 VACCINE(1) Never done HEPATITIS C SCREENING Never done HIV SCREENING Never done DTAP,TDAP,TD(1 - Tdap) Never done ONE PNEUMOVAX PRIOR TO AGE 65 Never done LIPID SCREEN Never done SHINGRIX VACCINE(1 of 2) Never done INFLUENZA(Season Ended) due on 11/12/2020 DEPRESSION SCREENING due on 09/02/2021 DIABETES SCREEN due on 06/10/2023 COLORECTAL CANCER SCREENING due on 07/03/2030 MENINGOCOCCAL CONJUGATE Aged Out Data reviewed ASSESSMENT/PLAN: 1. Chronic osteomyelitis of right tibia with draining sinus (HCC) - ICD9: 730.16, ICD10: M86.461 (primary diagnosis) Discussion with patient that I agree with recommendations from ortho 2. Weight loss - ICD9: 783.21, ICD10: R63.4 Improving since patient has increased his calorie intake. All testing and scopes were normal. F/u prn and to officially establish care. Awilda Rodney PA-C I spent a total of 20 minutes on the date of the service which included preparing to see the patient, [id number] patient care, com (more content not included)... [facility] documented as of this encounter (statuses as of 08/06/2021) [facility]04-[facility]2021 History of Past illness Narrative* Problem Noted Date Resolved Date Special screening for malignant neoplasm of colo n 07/03/2020 07/03/2020 documented as of this encounter (statuses as of 12/25/2021) [facility] History of Past illness Narrative* Problem Noted Date Resolved Date Special screening for malignant neoplasm of colo n 07/03/2020 07/03/2020 documented as of this encounter (statuses as of 05/17/2022) [facility] Acute pain of left shoulder- Primary [facility] Diagnosis Chronic osteomyelitis (CMS/HCC) (HCC)- [facility] Diagnosis Chronic osteomyelitis (CMS/HCC) (HCC)- Primary Hardware complicating wound infection, subsequent encounter [facility] (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 [facility] Diagnosis Chronic osteomyelitis (CMS/HCC) (HCC)- Primary Closed disp comminuted fracture of shaft of left femur with malunion [facility] Diagnosis Closed disp comminuted fracture of shaft of left femur with malunion- Primary Chronic osteomyelitis (CMS/HCC) (HCC) [facility] Diagnosis Chronic osteomyelitis (CMS/HCC) (HCC)- Primary Closed disp comminuted fracture of shaft of left femur with malunion [facility] Diagnosis Chronic osteomyelitis of right tibia (CMS/HCC) (HCC)- Primary Other chronic osteomyelitis, unspecified site (HCC) Displaced comminuted fracture of shaft of left femur, subsequent encounter for closed fracture with malunion [facility] Diagnosis Chronic osteomyelitis of right tibia (CMS/HCC) (HCC)- Primary Chronic osteomyelitis of right tibia (CMS/HCC) (HCC) Other chronic osteomyelitis, unspecified site (HCC) Displaced comminuted fracture of shaft of left femur, subsequent encounter for closed fracture with malunion 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 Meds * Agents No agents on file. * Blood No blood administrations on file. Lines, Drains, and Airways Type Details Placement Removal Peripheral IV Placement Date: 03/14 04/06; Catheter Size: 20 G; Orientation: Left, Posterior; Location: Hand 03/24/23 0000 by Braden Nesbitt LPN Wound/Incision 03/24/23; 0758; N; Incision; Calf; Anterior, Right; surgical incision 03/24/23 0758 by Rancho Lyman RN Negative Pressure Wound Therapy 03/24/23; 0838; 03/24/23; SURGEON; Yes; Surgical; Leg; Anterior, Lower, Right 03/24/23 0838 by Rancho Lyman RN documented in this encounter [facility] Reason for Referral Specialty Diagnoses / Procedures Referred By Mica rose Referred To Contact Orthopedics Diagnoses Acute pain of left shoulder Procedures CONSULT TO ORTHOPAEDICS OFFICE/OUTPATIENT [facility] 60-74 MINUTES Awilda Rodney PA-C [address] [place] [address] Referral ID Status Reason Start Date Expiration Date Visits Requested Visits Authorized [id number] Authorized PCP Requested Referral 08/06/2021 08/06/2022 1 1 Specialty Diagnoses / Procedures Referred By Contac t Referred To Contact XR IMAGING Diagnoses Acute pain of left shoulder Procedures XR SHOULDER GENERAL 3V OR MORE AP/TRUE AP/OTHER LEFT RADEX SHOULDER COMPLETE MINIMUM 2 VIEWS Awilda Rodney PA-C [address] [place] [address] Xr Imaging Referral ID Status Reason Start Date Expiration Date V isits Requested Visits Authorized [id number] Closed Auto-Generate d Referral 08/06/2021 09/05/2022 1 1 Advance Directives No Advanced Directives Records FoundDocuments on File Type Date Recorded Patient Assistant Clinical Nurse Manager Expl anation Advance Directive(s) 07/03/2020 9:30 AM Advance Directive(s) 07/01/2020 1:28 PM Summary Purpose Family History No Family History Records FoundNo Family History Records Found Additional Source Comments Source Comments (unrecognize d section and content) In the event this informatio n is protected by the Federal Confidentiality of Alcohol and Drug Abuse Patient Records regulations: The Federal rules restrict any use of the information to criminally investigate or prosecute any alcohol or drug abuse patient.[facility] the event this information is protected by the Federal Confidentiality of Alcohol and Drug Abuse Patient Records regulations: The Federal rules restrict any use of the information to criminally investigate or prosecute any alcohol or drug abuse patient.[facility] the event this information is protected by the Federal Confidentiality of Alcohol and Drug Abuse Patient Records regulations: The Federal rules restrict any use of the information to criminally investigate or prosecute any alcohol or drug abuse patient.[facility] Reason for Visit (unrecogniz ed section and content) Reason Comments Forms Reason Comments Refill Request Reason Comments Follow-up 6 month follow up fo r RLE hardware infection Reason Onset Date Comments Appointment Request 11/29/2022 Reason Comments Follow-up ORIF R tibia Reason Comments Follow-up Sx Discussion Reason Onset Date Comments Surgery Scheduling 02/23/2023 Specialty Diagnoses / Procedures Referred By Mica t Referred To Contact Diagnoses Other chronic osteomyelitis, unspecified site (HCC) Displaced comminuted fracture of shaft of left femur, subsequent encounter for closed fracture with malunion Other chronic osteomyelitis, unspecified site (HCC) [M86.60] Displaced comminuted fracture of shaft of left femur, subsequent encounter for closed fracture with malunion [S72.352P] Procedures TN REMOVAL IMPLANT DEEP TN INCISION & DRAINAGE LEG/ANKLE ABSCESS/HEMATOMA HOLD ANTIBIOTICS FOR CULTURES, REMOVAL LATERAL TIBIAL PLATEAU PLATE, INCISION AND DRAINAGE OF DEEP RIGHT LEG ABSCESS, POSSIBLE APPLICATION WOUND VAC INCISION AND DRAINAGE LEG OR ANKLE DEEP ABSCESS OR HEMATOMA Kendell Griffiths MD [address] [facility] [address] [place] [address] [facility] [address] [facility] [place] [address] Referral ID Status Reason Start Date Expiration Date Visits Re quested Visits Authorized [id number] 1 1 Care Teams (unrecognized sec tion and content) Tool Room Supervisor Relationship Specialty Start Date End Date Yeison Jean MD [address] [place] [address] PCP - General Family Medicine 01/13/21 Tool Room Supervisor Relationship Specialty Start Date End Date Awilda Rodney [address] [place] [address] PCP - General 07/28/21 Tool Room Supervisor Relationship Specialty Start Date End Date Awilda Rodney [address] [place] [address] PCP - General 07/28/21 Tool Room Supervisor Relationship Specialty Start Date End Date Awilda Rodney [address] [place] [address] PCP - General 07/28/21 Tool Room Supervisor Relationship Specialty Start Date End Date Awilda Rodney [address] [place] [address] PCP - General 07/28/21 Tool Room Supervisor Relationship Specialty Start Date End Date Awilda Rodney [address] [place] [address] PCP - General 07/28/21 Tool Room Supervisor Relationship Specialty Start Date End Date Awilda Rodney [address] [place] [address] PCP - General 07/28/21 Tool Room Supervisor Relationship Specialty Start Date End Date Awilda Rodney [address] [place] [address] PCP - General 07/28/21 Tool Room Supervisor Relationship Specialty Start Date End Date Awilda Rodney [address] [place] [address] PCP - General 07/28/21 Tool Room Supervisor Relationship Specialty Start Date End Date Awilda Rodney [address] [place] [address] PCP - General 07/28/21 Tool Room Supervisor Relationship Specialty Start Date End Date Awilda Rodney [address] [facility] [place] [id number] PCP - General 07/28/21 Tool Room Supervisor Relationship Specialty Start Date End Date Awilda Rodney [address] [place] [address] PCP - General 07/28/21 Tool Room Supervisor Relationship Specialty Start Date End Date Awilda Rodney [address] [place] [address] PCP - General 07/28/21 (unrecognized sect ion and content) No Status Records FoundNo Status Records Found INFORMATION SOURCE (unrecogn ized section and content) DATE CREATED AUTHOR AUTHOR'S ORGANIZ ATION 04/16/2023 [facility] Scheduled Active and Recently Administ ered Medications (unrecognized section and content) Continuous Medication Order 03/26/2023 03/27/2023 03/28/2023 lactated Ringer's (LR) infusion 50 mL/hr, IntraVENous, Continuous, Starting on Prisca 03/24/23 at 0545, Upon admission to sameday - please start iv if patient does not have iv access. Use 500ml NS for patients on dialysis. PRN Medication Order 03/26/2023 03/27/2023 03/28/2023 famotidine (Pepcid) tablet 20 mg 20 mg, Oral, 2 times daily PRN, heartburn, indigestion, Starting on Prisca 03/24/23 at 2012 heparin flush injection 250 Units 250 Units, IntraCATHeter, PRN, line care, after blood draws and after infusion, Starting on 03/28/23 at 1636, Do NOT administer to lumens with continuous fluids currently infusing. Line Care. Use 10 mL or larger syringe. HYDROmorphone (Dilaudid) injection 0.25 mg(Linked Group 1) 0.25 mg, IntraVENous, Every 4 hours PRN, moderate pain (4-6), Starting on Prisca 03/24/23 at 1505, If oral and IV narcotics ordered, use oral first and only use IV if oral is ineffective or cannot take oral. Do Not give oral and IV within 1 hour of each other unless specifically ordered. HYDROmorphone (Dilaudid) injection 0.5 mg(Linked Group 1) 0.5 mg, IntraVENous, Every 4 hours PRN, severe pain (7-10), Starting on Prisca 03/24/23 at 1505, If oral and IV narcotics ordered, use oral first and only use IV if oral is ineffective or cannot take oral. Do Not give oral and IV within 1 hour of each other unless specifically ordered. methocarbamol (Robaxin) tablet 1,000 mg 1,000 mg, Oral, Every 8 hours PRN, muscle spasms, Starting on Prisca 03/24/23 at 1505 0410 (Given - Provider: Linnea Regalado, RN)1411 (Given - Provider: Jo Altamirano, RN) 0913 (Given - Provider: Jo Doe, BALJIT) naloxone (Narcan) injection 0.4 mg 0.4 mg, IntraVENous, Every 5 min PRN, opioid reversal, respiratory depression, Starting on Tue03/24/23 at 1508, +++ For RR <10, pinpoint pupils, over sedation for opioid reversal - MUST notify manager of operations provider immediately after first dose, may give IM or SQ if no IV access +++ oxyCODONE (Roxicodone) immediate release tablet 10 mg(Linked Group 2) 10 mg, Oral, Every 4 hours PRN, severe pain (7-10), Starting on Tue03/24/23 at 1505 oxyCODONE (Roxicodone) immediate release tablet 5 mg(Linked Group 2) 5 mg, Oral, Every 4 hours PRN, moderate pain (4-6), Starting on Tue03/24/23 at 1505 sodium chloride 0.9% (NS) flush 10 mL 10 mL, IntraCATHeter, PRN, line care, before blood draws, before and after infusion or medication administration, Starting on Tue03/28/23 at 1636, Use 10 mL or larger syringe. Linked Groups Order Group 1: HYDROmorphone (Dilaudid) injection 0.25 mgJump to med 0.25 mg, IntraVENous, Every 4 hours PRN, moderate pain (4-6), Starting on Prisca 03/24/23 at 1505, If oral and IV narcotics ordered, use oral first and only use IV if oral is ineffective or cannot take oral. Do Not give oral and IV within 1 hour of each other unless specifically ordered. Or HYDROmorphone (Dilaudid) injection 0.5 mgJump to med 0.5 mg, IntraVENous, Every 4 hours PRN, severe pain (7-10), Starting on Prisca 03/24/23 at 1505, If oral and IV narcotics ordered, use oral first and only use IV if oral is ineffective or cannot take oral. Do Not give oral and IV within 1 hour of each other unless specifically ordered. Group 2: oxyCODONE (Roxicodone) immediate release tablet 5 mgJump to med 5 mg, Oral, Every 4 hours PRN, moderate pain (4-6), Starting on Prisca 03/24/23 at 1505 Or oxyCODONE (Roxicodone) immediate release tablet 10 mgJump to med 10 mg, Oral, Every 4 hours PRN, severe pain (7-10), Starting on Prisca 03/24/23 at 1505 FOR RECORDS PERTAINING TO PATIENTS WHO ARE OR HAVE BEEN ENROLLED IN A CHEMICAL DEPENDENCY/SUBSTANCEABUSE PROGRAM, SOME INFORMATION MAY BE OMITTED. This clinical summary was aggregated from multiple sources. Caution should be exercised in using it in the provision of clinical care. This summary normalizes information from multiple sources, and as a consequence, information in this document may materially change the coding, format and clinical context of patient data. In addition, data may be omitted in some cases. CLINICAL DECISIONS SHOULD BE BASED ON THE PRIMARY CLINICAL RECORDS. [employer] [facility]. provides no warranty or guarantee of the accuracy or completeness of information in this document.
[2023-04-25 12:03] LABS: Absolute Lymphocyte Count 0.79 X10^3/uL (0.83-4.51); Absolute Neutrophil Count 2.3 X10^3/uL (2.0-7.7); Basophil# 0.04 X10^3/uL; Eosinophil# 0.29 X10^3/uL; Eosinophils% 7.5 % (0-5); Hematocrit 41.2 % (40-54); Hemoglobin 13.1 g/dL (13.0-16.5); Lymphocyte # 0.79 X10^3/ul (0.83-4.51); Lymphocyte % 20.4 % (19-41); Mean Corp Hgb Conc 31.8 g/dL (32-36); Mean Corpuscular Volume 100.5 fL (80-94); Monocyte# 0.43 X10^3/uL; Monocyte% 11.1 % (0-10); NRBC Flagged by Analyzer 0 % (0-5); Neutrophil % 59.5 % (47-70); Platelet Count 201 K/mm3 (150-450); RBC Distribution Width CV 14.2 % (11.6-14.6); RBC Distribution Width SD 52.8 fl (35.1-43.9); White Blood Count 3.9 K/mm3 (4.4-11.0)
[2023-04-25 14:05] LABS: Anion Gap 7 (5-15); BUN 29 mg/dL (7-18); BUN/Creat Ratio 37.4 RATIO (10-20); Calcium,Total 9.1 mg/dL (8.5-10.1); Chloride 107 mmol/L (98-107); Creatinine, Serum 0.78 mg/dL (0.70-1.30); EST Glomerular Filtration Rate 111 mL/min (>60); Est Glom Filt Rate - Afr Amer 134 mL/min (>60); Glucose 88 mg/dL (74-106); Potassium 4.2 mmol/L (3.5-5.1); Sodium Level 140 mmol/L (136-145)
== END | disposition home or self-care (01) ==
DX: T84.622D Infection and inflammatory reaction due to internal fixation device of right tibia, subsequent encounter (principal); M86.661 Other chronic osteomyelitis, right tibia and fibula
CPT/HCPCS: 80048; 85025

== ENCOUNTER → 2023-05-02 | Outpatient (CLI) | payer BC, SELFPAY ==
[2023-05-02 13:18] LABS: Absolute Lymphocyte Count 0.92 X10^3/uL (0.83-4.51); Absolute Neutrophil Count 2.7 X10^3/uL (2.0-7.7); Basophil# 0.05 X10^3/uL; Basophil% 1.1 % (0-1); Eosinophil# 0.19 X10^3/uL; Eosinophils% 4.1 % (0-5); Hematocrit 41.4 % (40-54); Hemoglobin 13.1 g/dL (13.0-16.5); Lymphocyte # 0.92 X10^3/ul (0.83-4.51); Lymphocyte % 19.7 % (19-41); Mean Corp Hgb Conc 31.6 g/dL (32-36); Mean Corpuscular Hgb 31.6 pg (27.0-32.0); Mean Platelet Vol. 9.6 fl (6.2-12.0); Monocyte# 0.77 X10^3/uL; Monocyte% 16.5 % (0-10); NRBC Flagged by Analyzer 0 % (0-5); Neutrophil # 2.71 X10^3/uL (2.7-7.7); Neutrophil % 58.2 % (47-70); Platelet Count 292 K/mm3 (150-450); RBC Distribution Width CV 14.4 % (11.6-14.6); RBC Distribution Width SD 53.5 fl (35.1-43.9); Red Blood Count 4.14 M/mm3 (4.6-6.2); White Blood Count 4.7 K/mm3 (4.4-11.0)
[2023-05-02 13:31] LABS: Anion Gap 3 (5-15); BUN 18 mg/dL (7-18); Calcium,Total 9.2 mg/dL (8.5-10.1); Chloride 111 mmol/L (98-107); Creatinine, Serum 0.72 mg/dL (0.70-1.30); EST Glomerular Filtration Rate 121 mL/min (>60); Est Glom Filt Rate - Afr Amer 146 mL/min (>60); Glucose 86 mg/dL (74-106); Potassium 4.2 mmol/L (3.5-5.1); Sodium Level 142 mmol/L (136-145)
--- OUTSIDE RECORDS SUMMARY | 2023-05-02 14:11 | XMS RPT_ITS | CCD ---
Author Name Unknown Address [address] [place] [address] Organization [facility] Care Team Providers Care Multi Care Technician Name Role Phone Yeison Jean MD Primary Care Provider Awilda Rodney Primary Care Provider ABDOULAYE WELSH Referring Unavailable RODNEY, AWILDA Primary Care Unavailable GRIFFITHSKENDELL Admitting Unavailable GRIFFITHS, KENDELL Attending Unavailable RODNEY, AWILDA Primary Care Unavailable GRIFFITHS, KENDELL Attending Unavailable RODNEY, AWILDA Primary Care Unavailable MANDAPAT, MITALI Attending Unavailable RODNEY, AWILDA Primary Care Unavailable GRIFFITHS, KENDELL Attending Unavailable RODNEY, AWILDA Primary Care Unavailable GRIFFITHS, KENDELL Attending Unavailable RODNEY, AWILDA Primary Care Unavailable MANDAPAT, MITALI Attending Unavailable RODNEY, AIWLDA Primary Care Unavailable YISEL WELSHER Referring Unavailable RODNEY, AWILDA Primary Care Unavailable MANDAPAT, MITALI Attending Unavailable RODNEY, AWILDA Primary Care Unavailable MAX, ABDOULAYE Referring Unavailable RODNEY, AWILDA Primary Care Unavailable RODNEY, AWILDA Primary Care Unavailable Allergies Allergy Classification Reported Allergen(s) Allergy Type Date of Onset Reaction(s) Facility (3 sources) diazePAM Drug Allergy 1 Mental Status Change [facility] (20 sources) Morphine Drug Allergy 1 Mental Status Change, Other [facility] (17 sources) Codeine Drug Allergy 9 Nausea Only [facility] (17 sources) Diazepam Propensity to adverse reactions 1 Other [facility] Medications Current Medications Medication Drug Class(es) Dates Sig (Normalized) Sig (Original) cefepime (2 sources) Cephalosporin Antibacterial Start: 2023 End: 05-05-2023 take 2 g intravenously every eight hours CEFEPIME HCL IV Infuse 2 g into a venous catheter in the morning and 2 g at noon and 2 g before bedtime. Do not start before 2023. 0 2023 05/05/2023 Active cefepime 2,000 mg in sodium chloride 0.9 % 50 mL IVPB (4 sources) Start: 03-28-2023 End: 05-09-2023 take 2000 mg intravenously every eight hours cefepime 2,000 mg in sodium chloride 0.9 % 50 mL IVPB Infuse 2,000 mg into a venous catheter in the morning and 2,000 mg at noon and 2,000 mg before bedtime. 126 each 0 03/28/2023 05/09/2023 Active Glucosamine (20 sources) GLUCOSAMINE SULFATE PO Take by mouth 3 times daily. 0 Suspended Completed/Discontinued Medications Medication Drug Class(es) Dates Sig (Normalized) Sig (Original) acetaminophen 325 mg oral tablet (19 sources) Start: 03-24-2023 End: 03-28-2023 take 1 tablet by mouth every four hours acetaminophen (Tylenol) tablet 650 mg Problems Active Problems Problem Classification Problem Date Documented Date Episodic/Chronic Bacterial infection; unspecified site (1 source) Infection due to Pseudomonas aeruginosa; Translations: [Other bacterial infections of unspecified site] 2023 Episodic Esophageal disorders (20 sources) Gastroesophageal reflux disease without esophagitis; Translations: [...] site] Onset: 01-13-2021 01-13-2021 Chronic Other aftercare (5 sources) Long-term current use of antibiotic; Translations: [watermaster (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] Onset: 03-24-2023 11-02-2022 Episodic Other aftercare (1 source) watermaster (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; Translations: [correction (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] Onset: 03-24-2023 Episodic Other non-traumatic joint disorders (1 source) Shoulder pain; Translations: [Pain in left shoulder] Episodic Unclassified (2 sources) Post-op; Translations: [Post-op] Onset: 04-05-2023 Past or Other Problems Problem Classification Problem Date Documented Da te Episodic/Chronic Complication of device; implant or graft (4 sources) Infection associated with implant; Translations: [Infection and inflammatory reaction due to other internal orthopedic prosthetic devices, implants and grafts, subsequent encounter] Onset: 11-02-2022 11-02-2022 Episodic Other aftercare (3 sources) Drug therapy finding; Translations: [Other emt intermediate (current) drug therapy] Onset: 01-13-2021 01-13-2021 Episodic Results Test Name Value Interpretation Reference Range Facil ity Vital Signs Date Time Vital Sign Value Performing Clinician Faci lity 04-26-2023 11:30-0500 Body height 176.5 cm Mitali rBeaux MD Work Phone: [facility] [employer] 04-26-2023 11:30-0500 Body mass index (BMI) [Ratio] 23.29 kg/m2 Mitali Breaux MD Work Phone: [facility] [employer] 04-26-2023 11:30-0500 Body temperature 98.71 [degF] Mitali Breaux MD Work Phone: [facility] [employer] 04-26-2023 11:30-0500 Body weight 72.58 kg Mitali Breaux MD Work Phone: [facility] [employer] 04-26-2023 11:30-0500 Diastolic blood pressure 70 mm[Hg] Mitali Breaux MD Work Phone: [employer] 04-26-2023 11:30-0500 Heart rate 96 /min Mitali Breaux MD Work Phone: [facility] [employer] 04-26-2023 11:30-0500 SaO2% (BldA) [Mass fraction] 98 % Mitali Breaux MD Work Phone: [employer] 04-26-2023 11:30-0500 Systolic blood pressure 110 mm[Hg] Mitali Breaux MD Work Phone: [facility] [employer] 03-28-2023 09:12-0500 Body temperature 97.9 [degF] Kendell Griffiths MD Work Phone: [facility] [employer] 03-28-2023 09:12-0500 Diastolic blood pressure 78 mm[Hg] Kendell Griffiths MD Work Phone: [facility] [employer] 03-28-2023 09:12-0500 Heart rate 97 /min Kendell Griffiths MD Work Phone: [facility] [employer] 03-28-2023 09:12-0500 Respiratory rate 16 /min Kendell Griffiths MD Work Phone: [facility] [employer] 03-28-2023 09:12-0500 SaO2% (BldA) [Mass fraction] 99 % Kendell Griffiths MD Work Phone: [facility] [employer] 03-28-2023 09:12-0500 Systolic blood pressure 117 mm[Hg] Kendell Griffiths MD Work Phone: [facility] [employer] 03-24-2023 05:46-0500 Body height 176.5 cm Kendell Griffiths MD Work Phone: [facility] [employer] 03-24-2023 05:46-0500 Body mass index (BMI) [Ratio] 23.29 kg/m2 Kendell Griffiths MD Work Phone: [facility] [employer] 03-24-2023 05:46-0500 Body weight 72.58 kg Kendell Griffiths MD Work Phone: [facility] [employer] 02-22-2023 14:45-0500 Body height 175.3 cm Kendell Griffiths MD Work Phone: [facility] [employer] 02-22-2023 14:45-0500 Body mass index (BMI) [Ratio] 23.63 kg/m2 Kendell Griffiths MD Work Phone: [facility] [employer] 02-22-2023 14:45-0500 Body weight 72.58 kg Kendell Griffiths MD Work Phone: [facility] [employer] 12-07-2022 14:04-0400 Body height 176.5 cm Kendell Griffiths MD Work Phone: [facility] 12-07-2022 14:04-0400 Body mass index (BMI) [Ratio] 23.29 kg/m2 Kendell Griffiths MD Work Phone: [facility] 12-07-2022 [id number] Body weight 72.58 kg Kendell Griffiths MD Work Phone: [facility] 08-06-2021 09:07-0400 Body temperature 98.29 [degF] Awilda Rodney PA-C Work Phone: [facility] 08-06-2021 09:07-0400 Body weight 74.39 kg Awilda Rodney PA-C Work Phone: [facility] 08-06-2021 09:07-0400 Diastolic blood pressure 76 mm[Hg] Awilda Rodney PA-C Work Phone: [facility] 08-06-2021 09:07-0400 Heart rate 96 /min Awilda Rodney PA-C Work Phone: [facility] 08-06-2021 09:07-0400 Respiratory rate 18 /min Awilda Rodney PA-C Work Phone: [facility] 08-06-2021 09:07-0400 Systolic blood pressure 122 mm[Hg] Awilda Rodney PA-C Work Phone: [facility] Encounters Encounter Date Encounter Type Care Provider Facility Start: 04-26-2023 End: 04-26-2023 ambulatory MITALI BREAUX [facility] Start: 04-26-2023 End: 04-26-2023 Office outpatient visit 25 minutes Mitali Breaux MD Work Phone: [facility] Infectious Disease Procedures Date Procedure Procedure Detail Performing Clinician [...] DTaP/Tdap/Td Vaccines (2 - Td or Tdap) [facility] Start: 01-13-2031 Urine microalbumin profile DTAP,TDAP,TD (2 - Td or Tdap) [facility] Start: 07-03-2030 Colonoscopy COLONOSCOPY [facility] Start: 07-03-2030 COLORECTAL CANCER SCREENING COLORECTAL CANCER SCREENING [facility] Start: 2028 RSV Immunization aged 60 or older (1 - 1-dose 60+ series) RSV Immunization aged 60 or older (1 - 1-dose 60+ series) [facility] Start: 01-13-2026 LIPID SCREEN LIPID SCREEN [facility] Start: 01-14-2024 DIABETES SCREEN DIABETES SCREEN [facility] Start: 07-26-2023 End: 07-26-2023 Patient encounter procedure 07/26/2023 11:30 AM EDT Office Visit [facility] Infectious Disease [address] [place] [address] [address] [place] [id number] Mitali Breaux MD [address] [place] [address], [address] [place], [place] [id number] [facility] Start: 06-14-2023 End: 06-14-2023 Patient encounter procedure 06/14/2023 2:00 PM EDT Office Visit [facility] Orthopedics and Sports Medicine [address] [facility] [address] [place] [address] Kendell Griffiths MD [address] [facility] [address] [place], [place] [id number] [facility] Start: 05-03-2023 End: 05-03-2023 Patient encounter procedure 05/03/2023 2:00 PM EST Office Visit [facility] Medicine [address] [facility] [address] [place] [phone] Kendell Griffiths MD [address] [facility] [address] [place], [place] [id number] [facility] Start: 04-26-2023 End: 04-26-2023 Patient encounter procedure 04/26/2023 11:30 AM EST Office Visit [facility] Infectious Disease [address] [place] [address] Mitali Breaux MD [address] [facility] [place] [address] [facility] Start: 04-26-2023 End: 04-26-2023 Telemedicine consultation with patient 04/26/2023 11:30 AM EST Telemedicine [facility] Infectious Disease [address] [place] [address] Mitali Breaux MD [address] [facility] [place] [address] [facility] Start: 04-05-2023 End: 04-05-2023 Patient encounter procedure 04/05/2023 2:10 PM EST Office Visit [facility] Orth[facility]ics and Sports Medicine [address] [facility] [address] [place] [phone] Kendell Griffiths MD [address] [facility] [address] [place] [address] [facility] Start: 04-05-2023 End: 04-04-2024 XR Tibia and Fibula - right 2 Views XR tibia fibula 2 views right Imaging Routine Chronic osteomyelitis ([facility]/HCC) (HCC) Expected: 04/05/2023, Expires: 04/04/2024 [facility] Work Phone: Immunizations Immunization Date Immunization Notes Care Provider Fa cility 01-13-2021 tetanus toxoid, redu amaury diphtheria toxoid, and acellular pertussis vaccine, adsorbed Awilda Rodney PA-C Work Phone: [facility] Payers Date Payer Category Payer Unknown [place] [employer] [id number] 2022-Present [address] [place] [address] Commercial [id number] 2022 Unknown [id number] 2019 Private Health Insurance [email or web address] PPO [id number] 2019-Present [phone] [address] [place] [address] PPO [id number] 2019 Private Health Insurance [employer] PPO [id number] 2019-Present [phone] [id number] [place] [id number] PPO [id number] Social History Date Type Detail Facility Start: 06-09-2020 End: 03-21-2023 Tobacco smoking status PAIS Smokes tobacco daily [facility] Start: 06-09-2020 End: 04-26-2023 Cigarettes smoked current (pack per day) - Reported 1 [facility] Start: 06-09-2020 End: 03-21-2023 Tobacco use and exposure User of smokeless tobacco [facility] History of tobacco use Snuff User [facility] Start: 08-06-2021 End: 04-26-2023 Alcohol intake Current drinker of alcohol (finding) [facility] Start: 09-02-2020 History SDOH Alcohol Frequency 5 [facility] Start: 09-02-2020 History SDOH Alcohol Std Drinks 4 [facility] Start: 09-02-2020 End: 01-07-2021 History SDOH Social Connections Get Together 2 [facility] Start: 09-02-2020 History SDOH Social Connections Christianity 1 [facility] Start: 09-02-2020 History SDOH Social Connections Living 8 [facility] Start: 09-02-2020 History SDOH Physica l Activity DPW 0 [facility] Start: 01-07-2021 History SDOH Housing Homeless Last Year 3 [facility] Start: 09-02-2020 Education 12 [facility] Start: 1970 Sex Assigned At Male [facility] Start: 07-27-2021 End: 11-02-2022 Exposure to SARS-CoV-2 (event) Not sure [facility] History of tobacco use Cigarette Smoker C [facility] Start: 05-04-2022 End: 04-26-2023 Tobacco use panel [facility] Start: 1970 Sex Assigned At Not on file [facility] History of tobacco use Chews Tobacco [facility] Start: 03-21-2023 Tobacco Comment ONLY WHEN AT WORK [facility] Start: 03-21-2023 Alcohol Comment DAILY HAS 6 DR JOSE CASAS [facility] Medical Equipment Procedure Code Equipment Code Equipment Origin al Text Equipment Identifier Dates Graft Bone Rapid 10cc Stimulan - [id number] Start: 03-24-2023 Clinical Notes 07-03-2020 to 04-26-2023 Mitali Breaux MD - 04/26/2023 11:30 AM Michi Doe RN - 03/28/2023 5:24 PM Michi Doe RN - 03/28/2023 5:24 PM ESTCare Coordination - Unknown Case Management - 03/28/2023 5:17 PM EST Note Date & Type Note Facility 04-26-2023 History of Present illness Narrative Images from the original note were not included. [facility] Infectious Diseases Attending Outpatient Consult Note Chief Complaint Patient presents with Follow-up Follow up tibial OM HISTORY OF PRESENT ILLNESS The patient is a 53 y.o. 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 Pt was in a [facility] at age 27 where he sustained compound fractures of his BLEs requiring plates, grafts, flap closure. In April 2018, his incision opened up on its own. Pt nursed it at home with OTC antibiotic ointment, peroxide for 2 months. Pt reports a few weeks later, it recurred. His leg became red, swollen, and painful. Pt was seen in the [place] ED and diagnosed with a bone infection. [...] including skin, subcutaneous tissues and bone. Cultures grew Psa. Pt was discharged on cefepime via PICC and presents today for follow up. Pt doing well. No fevers, chills or sweats. No nausea, vomiting, diarrhea. Pt eating well. Wound has healed well. Past Medical History: Diagnosis Date GERD (gastroesophageal reflux disease) Past Surgical History: Procedure Laterality Date FEMUR FRACTURE SURGERY Left Distal Femur ORIF FEMUR FRACTURE SURGERY Left 1984 [employer] ORIF SKIN GRAFT Right x2 for open tibia fx TIBIA FRACTURE SURGERY Right 1997 ORIF for open fx TIBIAL PLATEAU HARDWARE REMOVAL Right 03/24/2023 INCISION AND DRAINAGE DEEP RIGHT LEG ABSCESS Current Outpatient Medications Medication Sig Dispense Refill acetaminophen (Tylenol) 500 MG tablet Take 500 mg by mouth every 6 hours as needed. cefepime 2,000 mg in sodium chloride 0.9 % 50 mL IVPB Infuse 2,000 mg into a venous catheter in the morning and 2,000 mg at noon and 2,000 mg before bedtime. 126 each 0 CEFEPIME HCL IV Infuse 2 g into a venous catheter in the morning and 2 g at noon and 2 g before bedtime. Do not start before 2023. GLUCOSAMINE SULFATE PO Take by mouth 3 times daily. ibuprofen 200 MG tablet Take 200 mg by mouth every 6 hours as needed. LEVOCETIRIZINE DIHYDROCHLORIDE PO Take by mouth daily. pantoprazole (ProtoNix) 40 MG EC tablet Take 40 mg by mouth. raNITIdine (Zantac) 150 MG tablet Take 150 mg by mouth in the morning and 150 mg before bedtime. sulfamethoxazole-trimethoprim (Bactrim DS) 800-160 MG tablet Take 1 tablet by mouth 2 times daily. No current facility-administered medications for this visit. [...] leg swelling. Gastrointestinal: Negative for abdominal pain, diarrhea and nausea. Genitourinary: Negative. Musculoskeletal: Positive for arthralgias, gait problem and joint swelling. Negative for myalgias. Skin: Positive for wound. Negative for rash. All other systems reviewed and are negative. Visit Vitals BP 110/70 Pulse 96 Temp 37.1 C (98.7 F) Physical Exam Vitals and nursing note reviewed. Constitutional: General: He is not in acute distress. Appearance: He is normal weight. He is not ill-appearing, toxic-appearing or diaphoretic. HENT: Head: Normocephalic and atraumatic. Right Ear: External ear normal. Left Ear: External ear normal. Nose: Nose normal. No rhinorrhea. Mouth/Throat: Comments: Poor dentition Eyes: General: No scleral icterus. Right eye: No discharge. Left eye: No discharge. Conjunctiva/sclera: Conjunctivae normal. Musculoskeletal: General: Swelling and deformity present. Comments: Bilateral legs with gross deformities, but RLE healing well. Small scab remains. No surrounding erythema. No induration. No fluctuance. No drainage Skin: General: Skin is warm and dry. Findings: No rash. Neurological: Mental Status: He is alert and oriented to person, place, and time. Mental status is at baseline. Gait: Gait abnormal. Comments: Antalgic gait Psychiatric: Mood and Affect: Mood normal. Behavior: Behavior normal. Thought Content: Thought content normal. Judgment: Judgment normal. Lab Requisition on 04/18/2023 Component Date Value Ref Range Status SODIUM 04/18/2023 140 135 - 145 mmol/L Final POTASSIUM 04/18/2023 4.8 3.5 - 5.1 mmol/L Final CHLORIDE 04/18/2023 106 98 - 107 mmol/L Final CARBON DIOXIDE 04/18/2023 27 22 - 30 mmol/L Final UREA NITROGEN 04/18/2023 26 (H) 9 - 20 mg/dL Final CREATININE 04/18/2023 0.78 0.66 - 1.25 mg/dL Final GLUCOSE 04/18/2023 114 (H) 70 - 100 mg/dL Final CALCIUM 04/18/2023 9.7 8.4 - 10.4 mg/dL Final ANION GAP 04/18/2023 8 3 - 13 mmol/L Final eGFR 04/18/2023 >90.0 >60.0 mL/min/1.73m*2 Final Auto WBC 04/18/2023 5.5 3.6 - 10.7 10*3/uL Final RBC 04/18/2023 3.98 (L) 4.40 - 5.90 10*6/uL Final Hemoglobin 04/18/2023 13.1 13.0 - 18.0 g/dL Final Hematocrit 04/18/2023 40.4 40.0 - 52.0 % Final MCV 04/18/2023 101.5 (H) 80.0 - 98.0 fL Final MCH 04/18/2023 32.9 26.0 - 34.0 pg Final MCHC 04/18/2023 32.4 32.0 - 36.0 % Final RDW 04/18/2023 14.5 11.5 - 14.5 % Final Platelets 04/18/2023 266 140 - 440 10*3/uL Final MPV 04/18/2023 9.4 7.4 - 12.4 fL Final nRBC 04/18/2023 0.0 0.0 - 2.0 /100 WBCs Final Neutrophils Relative 04/18/2023 60.2 40.0 - 80.0 % Final Lymphocytes Relative 04/18/2023 15.5 (L) 20.0 - 40.0 % Final Monocytes Relative 04/18/2023 14.0 (H) 2.0 - 10.0 % Final Eosinophils Relative 04/18/2023 8.4 (H) 1.0 - 6.0 % Final Basophils Relative 04/18/2023 1.5 0.0 - 2.0 % Final Immature Grans % 04/18/2023 0.4 (H) <=0.0 % Final Neutrophils Absolute 04/18/2023 3.3 1.8 - 7.0 10*3/uL Final Lymphocytes Absolute 04/18/2023 0.9 (L) 1.0 - 4.3 10*3/uL Final Monocytes Absolute 04/18/2023 0.8 0.0 - 0.8 10*3/uL Final Eosinophils Absolute 04/18/2023 0.5 0.0 - 0.5 10*3/uL Final Basophils Absolute 04/18/2023 0.1 0.0 - 0.2 10*3/uL Final Immature Grans Absolute 04/18/2023 0.0 <=0.0 10*3/uL Final Lab Requisition on 04/04/2023 Component Date Value Ref Range Status Auto WBC 04/04/2023 6.4 3.6 - 10.7 10*3/uL Final RBC 04/04/2023 3.85 (L) 4.40 - 5.90 10*6/uL Final Hemoglobin 04/04/2023 12.7 (L) 13.0 - 18.0 g/dL Final Hematocrit 04/04/2023 38.1 (L) 40.0 - 52.0 % Final MCV 04/04/2023 99.0 (H) 80.0 - 98.0 fL Final MCH 04/04/2023 33.0 26.0 - 34.0 pg Final MCHC 04/04/2023 33.3 32.0 - 36.0 % Final RDW 04/04/2023 13.8 11.5 - 14.5 % Final Platelets 04/04/2023 400 140 - 440 10*3/uL Final MPV 04/04/2023 9.2 7.4 - 12.4 fL Final Neutrophils Relative 04/04/2023 60.5 40.0 - 80.0 % Final Lymphocytes Relative 04/04/2023 19.3 (L) 20.0 - 40.0 % Final Monocytes Relative 04/04/2023 13.0 (H) 2.0 - 10.0 % Final Eosinophils Relative 04/04/2023 5.3 1.0 - 6.0 % Final Basophils Relative 04/04/2023 1.1 0.0 - 2.0 % Final Immature Grans % 04/04/2023 0.8 (H) <=0.0 % Final Neutrophils Absolute 04/04/2023 3.9 1.8 - 7.0 10*3/uL Final Lymphocytes Absolute 04/04/2023 1.2 1.0 - 4.3 10*3/uL Final Monocytes Absolute 04/04/2023 0.8 0.0 - 0.8 10*3/uL Final Eosinophils Absolute 04/04/2023 0.3 0.0 - 0.5 10*3/uL Final Basophils Absolute 04/04/2023 0.1 0.0 - 0.2 10*3/uL Final Immature Grans Absolute 04/04/2023 0.1 (H) <=0.0 10*3/uL Final SODIUM 04/04/2023 135 135 - 145 mmol/L Final POTASSIUM 04/04/2023 4.4 3.5 - 5.1 mmol/L Final CHLORIDE 04/04/2023 103 98 - 107 mmol/L Final CARBON DIOXIDE 04/04/2023 24 22 - 30 mmol/L Final UREA NITROGEN 04/04/2023 21 (H) 9 - 20 mg/dL Final CREATININE 04/04/2023 0.57 (L) 0.66 - 1.25 mg/dL Final GLUCOSE 04/04/2023 93 70 - 100 mg/dL Final CALCIUM 04/04/2023 9.6 8.4 - 10.4 mg/dL Final ANION GAP 04/04/2023 8 3 - 13 mmol/L Final eGFR 04/04/2023 >90.0 >60.0 mL/min/1.73m*2 Final Admission on 03/24/2023, Discharged on 03/28/2023 Component Date Value Ref Range Status PROTHROMBIN TIME 03/25/2023 10.0 9.0 - 12.0 s Final INR 03/25/2023 0.9 0.9 - 1.1 Final Culture 03/24/2023 Rare Pseudomonas aeruginosa (A) Final Gram Stain Result 03/24/2023 Many Polymorphonuclear leukocytes per low power field Final Gram Stain Result 03/24/2023 No organisms seen Final Culture 03/24/2023 No growth at 5 days Final Culture 03/24/2023 Rare Pseudomonas aeruginosa (A) Final Gram Stain Result 03/24/2023 Rare Polymorphonuclear leukocytes per low power field Final Gram Stain Result 03/24/2023 No organisms seen Final Culture 03/24/2023 No growth at 5 days Final Culture 03/24/2023 Few Pseudomonas aeruginosa (A) Final Gram Stain Result 03/24/2023 Rare Polymorphonuclear leukocytes per low power field Final Gram Stain Result 03/24/2023 No organisms seen Final Culture 03/24/2023 No growth at 5 days Final Auto WBC 03/25/2023 8.3 3.6 - 10.7 10*3/uL Final RBC 03/25/2023 3.32 (L) 4.40 - 5.90 10*6/uL Final Hemoglobin 03/25/2023 11.0 (L) 13.0 - 18.0 g/dL Final Hematocrit 03/25/2023 33.4 (L) 40.0 - 52.0 % Final MCV 03/25/2023 100.4 (H) 80.0 - 98.0 fL Final MCH 03/25/2023 33.1 26.0 - 34.0 pg Final MCHC 03/25/2023 33.0 32.0 - 36.0 % Final RDW 03/25/2023 15.0 (H) 11.5 - 14.5 % Final Platelets 03/25/2023 253 140 - 440 10*3/uL Final MPV 03/25/2023 6.8 (L) 7.4 - 12.4 fL Final nRBC 03/25/2023 0.0 0.0 - 2.0 /100 WBCs Final Neutrophils Relative 03/25/2023 85.1 (H) 40.0 - 80.0 % Final Lymphocytes Relative 03/25/2023 5.0 (L) 20.0 - 40.0 % Final Monocytes Relative 03/25/2023 9.5 2.0 - 10.0 % Final Eosinophils Relative 03/25/2023 0.0 (L) 1.0 - 6.0 % Final Basophils Relative 03/25/2023 0.4 0.0 - 2.0 % Final Neutrophils Absolute 03/25/2023 7.1 (H) 1.8 - 7.0 10*3/uL Final Lymphocytes Absolute 03/25/2023 0.4 (L) 1.0 - 4.3 10*3/uL Final Monocytes Absolute 03/25/2023 0.8 0.0 - 0.8 10*3/uL Final Eosinophils Absolute 03/25/2023 0.0 0.0 - 0.5 10*3/uL Final Basophils Absolute 03/25/2023 0.0 0.0 - 0.2 10*3/uL Final SODIUM 03/25/2023 134 (L) 135 - 145 mmol/L Final POTASSIUM 03/25/2023 4.6 3.5 - 5.1 mmol/L Final CHLORIDE 03/25/2023 106 98 - 107 mmol/L Final CARBON DIOXIDE 03/25/2023 23 22 - 30 mmol/L Final UREA NITROGEN 03/25/2023 23 (H) 9 - 20 mg/dL Final CREATININE 03/25/2023 0.70 0.66 - 1.25 mg/dL Final GLUCOSE 03/25/2023 146 (H) 70 - 100 mg/dL Final CALCIUM 03/25/2023 9.0 8.4 - 10.4 mg/dL Final ANION GAP 03/25/2023 5 3 - 13 mmol/L Final eGFR 03/25/2023 >90.0 >60.0 mL/min/1.73m*2 Final Auto WBC 03/26/2023 6.1 3.6 - 10.7 10*3/uL Final RBC 03/26/2023 3.40 (L) 4.40 - 5.90 10*6/uL Final Hemoglobin 03/26/2023 11.3 (L) 13.0 - 18.0 g/dL Final Hematocrit 03/26/2023 34.5 (L) 40.0 - 52.0 % Final MCV 03/26/2023 101.4 (H) 80.0 - 98.0 fL Final MCH 03/26/2023 33.3 26.0 - 34.0 pg Final MCHC 03/26/2023 32.8 32.0 - 36.0 % Final RDW 03/26/2023 14.9 (H) 11.5 - 14.5 % Final Platelets 03/26/2023 253 140 - 440 10*3/uL Final MPV 03/26/2023 6.8 (L) 7.4 - 12.4 fL Final nRBC 03/26/2023 0.0 0.0 - 2.0 /100 WBCs Final Neutrophils Relative 03/26/2023 72.1 40.0 - 80.0 % Final Lymphocytes Relative 03/26/2023 17.8 (L) 20.0 - 40.0 % Final Monocytes Relative 03/26/2023 7.8 2.0 - 10.0 % Final Eosinophils Relative 03/26/2023 1.2 1.0 - 6.0 % Final Basophils Relative 03/26/2023 1.1 0.0 - 2.0 % Final Neutrophils Absolute 03/26/2023 4.4 1.8 - 7.0 10*3/uL Final Lymphocytes Absolute 03/26/2023 1.1 1.0 - 4.3 10*3/uL Final Monocytes Absolute 03/26/2023 0.5 0.0 - 0.8 10*3/uL Final Eosinophils Absolute 03/26/2023 0.1 0.0 - 0.5 10*3/uL Final Basophils Absolute 03/26/2023 0.1 0.0 - 0.2 10*3/uL Final SODIUM 03/26/2023 135 135 - 145 mmol/L Final POTASSIUM 03/26/2023 4.6 3.5 - 5.1 mmol/L Final CHLORIDE 03/26/2023 106 98 - 107 mmol/L Final CARBON DIOXIDE 03/26/2023 24 22 - 30 mmol/L Final UREA NITROGEN 03/26/2023 25 (H) 9 - 20 mg/dL Final CREATININE 03/26/2023 0.75 0.66 - 1.25 mg/dL Final GLUCOSE 03/26/2023 101 (H) 70 - 100 mg/dL Final CALCIUM 03/26/2023 8.9 8.4 - 10.4 mg/dL Final ANION GAP 03/26/2023 5 3 - 13 mmol/L Final eGFR 03/26/2023 >90.0 >60.0 mL/min/1.73m*2 Final VANCOMYCIN, AUC 03/26/2023 8.0 (L) 15.0 - 20.0 ug/mL Final SODIUM 03/27/2023 136 135 - 145 mmol/L Final POTASSIUM 03/27/2023 4.3 3.5 - 5.1 mmol/L Final CHLORIDE 03/27/2023 107 98 - 107 mmol/L Final CARBON DIOXIDE 03/27/2023 22 22 - 30 mmol/L Final UREA NITROGEN 03/27/2023 26 (H) 9 - 20 mg/dL Final CREATININE 03/27/2023 0.77 0.66 - 1.25 mg/dL Final GLUCOSE 03/27/2023 99 70 - 100 mg/dL Final CALCIUM 03/27/2023 8.8 8.4 - 10.4 mg/dL Final ANION GAP 03/27/2023 7 3 - 13 mmol/L Final eGFR 03/27/2023 >90.0 >60.0 mL/min/1.73m*2 Final VANCOMYCIN, AUC 03/27/2023 10.5 (L) 15.0 - 20.0 ug/mL Final SODIUM 03/28/2023 134 (L) 135 - 145 mmol/L Final POTASSIUM 03/28/2023 4.3 3.5 - 5.1 mmol/L Final CHLORIDE 03/28/2023 105 98 - 107 mmol/L Final CARBON DIOXIDE 03/28/2023 23 22 - 30 mmol/L Final UREA NITROGEN 03/28/2023 20 9 - 20 mg/dL Final CREATININE 03/28/2023 0.63 (L) 0.66 - 1.25 mg/dL Final GLUCOSE 03/28/2023 103 (H) 70 - 100 mg/dL Final CALCIUM 03/28/2023 9.1 8.4 - 10.4 mg/dL Final ANION GAP 03/28/2023 6 3 - 13 mmol/L Final eGFR 03/28/2023 >90.0 >60.0 mL/min/1.73m*2 Final Micro: 03/24 tissue right leg stain negative, culture Psa 03/24 tissue right leg stain negative, culture Psa 03/24 swab right leg stain negative, culture Psa Lines: PICC Radiography/Echo/Other: 02/23/23 XR standing BLE Full-length standing films of bilateral lower extremities were obtained which show a healed right tibia with intact lateral plate and hardware. 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 2) malunion left femur 3) h/o left femur fracture at 14 yo 4) h/o open right tibia fracture s/p ORIF in 1997 5) encounter for nursing home antibiotics Plan: - finish cefepime; ends 05/05 per previous then observe off antibiotics - ok to remove PICC after last dose - labs reviewed - follow up with Ortho as scheduled - all questions answered; pt and his girlfriend voiced understanding of the plan and are in agreement - follow up 3 months, sooner PRN Mitali Breaux MD 35 minutes spent in review of the chart, pt's evaluation and in documentation documented in this encounter [facility] 03-28-2023 Note PICC Insertion/Repla cement Date/Time: 03/28/2023 [...] lumen Catheter size: 5 Fr Lot #: [id number] Trimmed at (cm): 46 Inserted at (cm): 46 Ultrasound guidance: Yes Post-procedure: Post-procedure: Antimicrobial dressing applied and securement device Description/Findings: Flushes easily and blood returned Estimated blood loss: < 5 mL Specify complication(s): No apparent complications Follow-up chest x-ray: Ordered [facility] 03-28-2023 Nurse Note Went over discharge instructions, med rec, and prescriptions with pt. Pt verbalized understanding. Wound vac switched to [facility]. [facility] 03-28-2023 Nurse Note Went over discharge instructions, med rec, and prescriptions with pt. Pt verbalized understanding. Wound vac switched to [place]. documented in this encounter [facility] 03-28-2023 Miscellaneous Notes Patient Choice Patient Name: HERI CHOWDHURY Date of : 1970 All Providers Sent Referral Name: [facility] At Home Phone: [phone] Address: [address] [place] [address] Start PACC Note Home Health Referral Educated patient on Home Care and services available. Patient offered choice of available HHC and agreeable to SN services with [facility] at Home - Home Care. Care Types: [...] is noted as yes - consider a WATER QUALITY CONTROL ENGINEER evaluation once the patient returns home. START PATIENT REGISTRATION INFORMATION Order Information Order Signing Physician: Kendell Griffiths MD Service Ordered RN ?: Yes Service Ordered PT ?: No Service Ordered OT ?: No Service Ordered ST ?: No Service Ordered WATER QUALITY CONTROL ENGINEER?:No Service Ordered FRONT DESK HOST?: No Following Physician: Rosendo Gross DO Following Physician Overseeing Physician: n/a (Required for Residents only) Agreeable to Follow? Yes Date/Time of Call 03/28/23 2:58 PM, Spoke with: Infectious Disease Care Coordination Same Day SOC?: No Primary Care Physician: Awilda Rodney Primary Care Physician Primary Care Physician Address: [address] [place] [id number] Visit Instructions: N/A Service Discharge Location Type: Home with Home Health Care Service Facility Name: N/A Service Floor Facility: N/A Service Room No: N/A Demographics Patient Last Name: Luciana Patient First Name: Heri Language/Communication Barrier: none Service Address: [address] [place] [address] City: [facility] ST: [place] Service ZIP: [address] Service (home) Other phone numbers: Telephone Information: Emergency Contact: Extended Emergency Contact Information Primary Emergency Contact: Ct Wallace Salinas Relation: None Admission Information Admit Date: 03/24/2023 Patient status at discharge: Inpatient Admitting Diagnosis Other chronic osteomyelitis, unspecified site ([facility]) [M86.60] Displaced comminuted fracture of shaft of left femur, subsequent encounter for closed fracture with malunion [S72.352P] Chronic osteomyelitis of right tibia (CMS/HCC) ([facility]) [M86.661] Caregiver Information Caregiver First Name: Ct Caregiver Last Name: Madison Caregiver Relationship to Patient girlfriend Caregiver Caregiver Notes: N/A [employer] List HIGHTECH: HI TECH - IV Orders: IV Method of Administration: IM Date and Time of Next Dose Due: 10am day after discharge Infusion Company: [facility] Infectious Disease Physician: Rosendo Gross DO Teachable Caregiver Teachable Caregiver First Name: Ct Philip Caregiver Last Name: Short Teachable Caregiver Relationship [...] to be drawn weekly. Fax results to [phone]. Following Physician/Facility: DO LUCILA DelunaTECH: HI TECH [...] (Hospital/Unit): / [id number]/[id number] A End PACC Note From [facility] Infusion: [place] BCBS eff: 03/14/2023, Ded: $3200,OOP: $5600, Coinsurance: [...] Stay (Days): 4 GMLOS: No GMLOS Documented Wallpaper Cleaner following case for Discharge Needs. Referral sent to [facility] for verification of in home infusion [...] Limits Permission given to speak with patient financial services sales representative/caregiver as indicated: Yes Confirmation of Payer with patient/family: Yes Payer Name: [place] [employer] [place]: Confirmation of Primary Care Physician: Confirmed PCP [...] for home going ATB recommendation. Secure message [facility] liaison Gamal regarding home care. Discharge plan [...] family/visitor updated by RN at this time. [facility] OR [address] [facility] [address] Dept: [phone] Loc: [phone] Operative Report Patient Name: Heri Chowdhury Date of : 1970 Date of Surgery: 03/24/23 Pre-operative diagnosis: Right tibial plateau fracture with infected hardware and multiple draining sinus tracts Post-operative diagnosis: Same Procedure(s): Removal deep hardware right tibia Incision and drainage of multiple abscesses including skin, subcutaneous tissues, and bone Surgeon: Kendell Griffiths M.D. Contact Centre Supervisor(s): Osmany Driver M.D. and Max Argueta M.D. [...] as well as medical complications such as OK, stroke, PE, DVT, and even . Specific [...] at 03/24/23, 11:55 AM Date: 03/24/2023 Location: [facility] OR Name: Heri Chowdhury, : 1970, Diagnosis [...] RIGHT LEG ABSCESS, POSSIBLE APPLICATION WOUND VAC 54661 - MA REMOVAL IMPLANT DEEP INCISION AND DRAINAGE LEG OR ANKLE DEEP ABSCESS OR HEMATOMA 80672 - MA INCISION & DRAINAGE LEG/ANKLE ABSCESS/HEMATOMA Surgeons * Kendell Griffiths - Primary Procedure Summary Anesthesia: General ASA: II Estimated Blood Loss: <50cc Drains: * None in log * Specimens ID Source Type Tests Collected By Collected At Frozen? Priority Lab ID A Leg, Right Swab AEROBIC AND ANAEROBIC CULTURE WITH STAIN Kendell Griffiths MD 03/24/23 0748 Routine [id number], [id number] Description: RIGHT LEG ABSESS B Leg, Right Tissue AEROBIC AND ANAEROBIC CULTURE WITH STAIN Kendell Griffiths MD 03/24/23 0815 Routine [id number], [id number] Description: RIGHT LEG ABSESS #2 C Leg, Right Tissue AEROBIC AND ANAEROBIC CULTURE WITH STAIN Kendell Griffiths MD 03/24/23 0819 Routine [id number], [id number] Description: RIGHT LEG ABSESS #3 Implants Type Name Action Serial No. [employer] Bone GRAFT BONE RAPID 10CC STIMULAN - [id number] Implanted Staff: Pipe Line Repairer: Rancho Lyman RN Scrub Person: Malachi Moscoso [...] Admit to ortho documented in this encounter [facility] [employer] 03-28-2023 Note Formatting of this n ote might be different from the original. Patient Choice Patient Name: HERI CHOWDHURY Date of : 1970 All Providers Sent Referral Name: [employer] [facility] Phone: [phone] Address: [address] [place] [address] [facility] [employer] 03-28-2023 Note Formatting of this n ote might be different from the original. 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 Patient offered choice of available HHC and agreeable to SN services with [facility] at Home - Home Care. Care Types: [...] is noted as yes - consider a WATER QUALITY CONTROL ENGINEER evaluation once the patient returns home. START PATIENT REGISTRATION INFORMATION Order Information Order Signing Physician: Kendell Griffiths MD Service Ordered RN ?: Yes Service Ordered PT ?: No Service Ordered OT ?: No Service Ordered ST ?: No Service Ordered WATER QUALITY CONTROL ENGINEER?:No Service Ordered FRONT DESK HOST?: No Following Physician: Rosendo Gross DO Following Physician Overseeing Physician: n/a (Required for Residents only) Agreeable to Follow? Yes Date/Time of Call 03/28/23 2:58 PM, Spoke with: Infectious Disease Care Coordination Same Day SOC?: No Primary Care Physician: Awilda Rodney Primary Care Physician Primary Care Physician Address: [address] [place] [address] / [facility] [address] Visit Instructions: N/A Service Discharge Location Type: Home with Home Health Care Service Facility Name: N/A Service Floor Facility: N/A Service Room No: N/A Demographics Patient Last Name: Luciana Patient First Name: Heri Language/Communication Barrier: none Service Address: [address] [place] [address] City: [facility] ST: [place] Service ZIP: [address] Service (home) Other phone numbers: Telephone Information: Emergency Contact: Extended Emergency Contact Information Primary Emergency Contact: Ct Wallace Salinas Relation: None Admission Information Admit Date: 03/24/2023 Patient status at discharge: Inpatient Admitting Diagnosis Other chronic osteomyelitis, unspecified site (HCC) [M86.60] Displaced comminuted fracture of shaft of left femur, subsequent encounter for closed fracture with malunion [S72.352P] Chronic osteomyelitis of right tibia (CMS/HCC) (HCC) [M86.661] Caregiver Information Caregiver First Name: Ct Caregiver Last Name: Short Caregiver Relationship to Patient girlfriend Caregiver Caregiver Notes: N/A [employer] List HIGHTECH: HI TECH - IV Orders: IV Method of Administration: IM Date and Time of Next Dose Due: 10am day after discharge Infusion Company: [facility] Infectious Disease Physician: Rosendo Gross DO Teachable Caregiver Teachable Caregiver First Name: Ct Teachable Caregiver Last Name: Short Teachable Caregiver Relationship to Patient: girlfriend Teachable Caregiver Teachable Caregiver Notes: N/A Teachable Caregiver available for SOC visit?: Yes Teachable Caregiver agreeable to provide skilled HITECH care per physician's orders?: Yes HIGHTECH: [employer] TECH - DISPOSABLE WOUND VAC Order: Remove prevena vac on 04/07/23. If Prevena vac loses suction or malfunctions, contact physician's office or refer to discharge paperwork for further instructions. Is patient teachable for wet-to-dry dressing change?: Yes Following Physician: Kendell Griffiths MD HIGHTECH: HI TECH - LABS Orders: BMP and hemogram with diff to be drawn weekly. Fax results to [phone]. Following Physician/Facility: Rosendo Gross DO [facility]: HI TECH - PICC CARE Line and [...] with PPE up (more content not included)... [facility] 03-28-2023 Note Orthopedic Surgery p rogress Note Discussed patient with Dr. Gross (ID). Plan for 6 weeks of IV cefepime at dc. Awaiting final approval via director case prior to dc. PICC also pending Okay for dc per director case. PICC in place. DC active to home [facility] 03-28-2023 Note [facility] - Infectious Diseases Attending Progress Note Reason for Consult-RLE OM d/t PsA Subjective- Covering for Dr. Breaux. Pt ambulating in room w/ the assistance [...] 6.1 03/26/2023 0407 HGB 11.3 (L) 03/26/2023 040 HCT 34.5 (L) 03/26/2023 0407 PLT 253 03/26/2023 0407 LYMPHOPCT 17.8 (L) 03/26/2023 040 MONOPCT 7.8 03/26/2023406 BASOPCT 1.1 03/26/2023406 NEUTROABS [...] at age 14 c/b malunion, GERD. H/o [facility] at [place] 27 w/ b/l LE compound [...] of moderate complexity. Rosendo Gross DO [facility] Infectious Diseases Office Tel. [phone] [facility] 03-28-2023 Procedure note Associated Ord er(s): PICC Insertion/Replacement Post-Procedure Diagnose(s): Osteomyelitis of right lower extremity (HCC); watermaster (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 PICC Insertion/Replacement Date/Time: [...] lumen Catheter size: 5 Fr Lot #: [id number] Trimmed at (cm): 46 Inserted at (cm): 46 Ultrasound guidance: Yes Post-procedure: Post-procedure: Antimicrobial dressing applied and securement device Description/Findings: Flushes easily and blood returned Estimated blood loss: < 5 mL Specify complication(s): No apparent complications Follow-up chest x-ray: Ordered [facility] 03-28-2023 Procedure note Associated Ord er(s): PICC Insertion/Replacement Post-Procedure Diagnose(s): Osteomyelitis of right lower extremity (HCC); correction (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 PICC Insertion/Replacement Date/Time: [...] lumen Catheter size: 5 Fr Lot #: [id number] Trimmed at (cm): 46 Inserted at (cm): 46 Ultrasound guidance: Yes Post-procedure: Post-procedure: Antimicrobial dressing applied and securement device Description/Findings: Flushes easily and blood returned Estimated blood loss: < 5 mL Specify complication(s): No apparent complications Follow-up chest x-ray: Ordered documented in this encounter [facility] 03-28-2023 History of Present illness Narrative Images [...] 14.9* PLT 253 BMP: Recent Labs 03/26/23 04003/27/23 0315 03/28/23 0406 NA 135 136 134* [...] ORIF 1997 -Orthopedics managing -Pain control, PT/OT -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 Gross (ID). Plan for 6 weeks of IV cefepime at dc. Awaiting final approval via director case prior to dc. PICC also pending Okay for dc per director case. PICC in place. DC active to home Images from the original note were not included. [facility] - Infectious Diseases Attending Progress Note Reason for Consult-RLE OM d/t PsA Subjective- Covering for Dr. Breaux. Pt ambulating in room w/ the assistance [...] 6.1 03/26/2023 0407 HGB 11.3 (L) 03/26/2023 040 HCT 34.5 (L) 03/26/2023 040 PLT 253 03/26/20237 LYMPHOPCT 17.8 (L) 03/26/2023406 MONOPCT 7.8 03/26/2023406 [...] at age 14 c/b malunion, GERD. H/o [facility] at age 27 w/ b/l LE compound [...] of moderate complexity. Rosendo Gross DO [facility] Infectious Diseases Office Tel. [phone] Images from the original note were not included. [facility] PCU [address] [facility] [address] Dept: [phone] Adult Orthopaedic Service Patient Name: Heri Chowdhury [...] Admit Date: 03/24/2023 PCP: Awilda Rodney Room#: [id number]/[id number] A Brief Hospital course: Patient is a [...] (gastroesophageal reflux disease) LABS: CBC: Recent Labs 03/25/237 03/26/23 040 WBC 8.3 6.1 RBC 3.32* 3.40* HGB 11.0* 11.3* HCT 33.4* 34.5* MCV 100.4* 101.4* RDW 15.0* 14.9* PLT 253 253 BMP: Recent Labs 03/25/23 0047 03/26/23 0407 03/27/23 0315 NA 134* 135 [...] ORIF 1997 -Orthopedics managing -Pain control, PT/OT -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 [...] Contact Information Primary Emergency Contact: Ct Wallace Salinas Relation: None Fadi Denney MD Division of Hospitalist Medicine [facility] Images from the original note were not included. [facility] PCU [address] [facility] [address] Dept: [phone] Adult Orthopaedic Service Patient Name: Heri Chowdhury [...] Admit Date: 03/24/2023 PCP: Awilda Rodney Room#: [id number] A Brief Hospital course: Patient is a [...] disease) LABS: CBC: Recent Labs 03/25/23 0047 03/26/23 0407 WBC 8.3 6.1 RBC 3.32* 3.40* HGB 11.0* 11.3* HCT 33.4* 34.5* MCV 100.4* 101.4* RDW 15.0* 14.9* PLT 253 253 BMP: Recent Labs 03/25/23 0047 03/26/23 0407 NA 134* 135 K 4.6 4.6 CL 106 106 CO2 23 24 BUN 23* 25* CREATININE 0.70 0.75 GLUCOSE 146* 101* CALCIUM 9.0 8.9 ANIONGAP 5 5 LIVER PROFILE:No results for input(s): AST , ALT , BILITOT , ALKPHOS , PROT in the last 72 hours. 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 [...] Fadi Denney MD Division of Hospitalist Medicine [facility] Images from the original note were not included. [facility] PCU [address] [facility] [address] Dept: [phone] Adult Orthopaedic Service Patient Name: Heri Chowdhury [...] be monitored and followed by the diet polysomnography technician. [facility] to Dose Vancomycin [...] 7:31 AM Rima Hollins PharmD Available via [email or web address] Images from the original note were not included. PAGING: The Acute Pain Service providers are available exclusively via [employer] CHAT. APS does not utilize pagers. 03/26/2023 Lab [...] Active Problem List Diagnosis Chronic osteomyelitis (CMS/HCC) ([facility]) GERD without esophagitis Chronic osteomyelitis of right tibia (CMS/HCC) ([facility]) Review of Systems Constitutional: Negative. HENT: [...] Pain Service providers are available exclusively via [employer]. APS does not utilize pagers. Images from the original note were not included. PHYSICAL THERAPY [facility] Initial Evaluation Name/MRN: Heri Chowdhury ([id number]) Evaluation Date: 03/25/2023 Date of : 1970 Admission Date: 03/24/2023 5:34 AM Age: 52 y.o. Room[facility]: [facility] Discharge Recommendation: Home with assist PRN [...] Noted Chronic osteomyelitis of right tibia (CMS/HCC) (HCC) 03/24/2023 Chronic osteomyelitis (CMS/HCC) (HCC) 01/13/2021 GERD without esophagitis 01/13/2021 Medical Precautions: [...] Independent Receives Help From: Significant other Active Er Medical Technician: Prior Level of Function ADL Assistance: Independent [...] gloves throughout entire session with patient. Heri Gamble PT Patient's Physical Therapy Plan of Care supervision is transferred to a [facility] [facility] Physical Therapist. Goals and/or treatment plan was established in collaboration with patient/family/other representatives. Images from the original note were not included. 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 [...] Fadi Denney MD Division of Hospitalist Medicine [facility] Wound Care consulted for Prevena wound VAC [...] disposable pump for discharge and instructed staff midwife to place in pt's room once it arrives to floor. Verbalized understanding. Instructed pt and staff midwife on plans to be connected to disposable [...] AM Brenda Call PharmD Available via Secure Chat/[facility] Images from the original note were not included. [facility] SURGICAL PROGRESS[facility] CARE UNIT PCU H6 [address] [facility] [address] Dept: [phone] Adult Orthopaedic Service Patient Name: Heri Chowdhury [...] 15 mg/kg, IntraVENous, q12h Physical Exam: Vitals: 03/25/234 BP: 121/74 Pulse: 73 Resp: 16 Temp: [...] PM Brenda Call PharmD Available via Secure Chat/[employer] documented in this encounter [facility] 03-28-2023 Note Formatting of this n ote is different from the original. Start PACC Note Home Health Referral Educated patient on Home Care and services available. Patient offered choice of available HHC and agreeable to SN services with [facility] at Home - Home Care. Care Types: [...] is noted as yes - consider a WATER QUALITY CONTROL ENGINEER evaluation once the patient returns home. START PATIENT REGISTRATION INFORMATION Order Information Order Signing Physician: Kendell Griffiths MD Service Ordered RN ?: Yes Service Ordered PT ?: No Service Ordered OT ?: No Service Ordered ST ?: No Service Ordered WATER QUALITY CONTROL ENGINEER?:No Service Ordered FRONT DESK HOST?: No Following Physician: Rosendo Gross DO Following Physician Overseeing Physician: n/a (Required for Residents only) Agreeable to Follow? Yes Date/Time of Call 03/28/23 2:58 PM, Spoke with: Infectious Disease Care Coordination Same Day SOC?: No Primary Care Physician: Awilda Rodney Primary Care Physician Primary Care Physician Address: [address] [facility] / [place] [address] Visit Instructions: N/A Service Discharge Location Type: Home with Home Health Care Service Facility Name: N/A Service Floor Facility: N/A Service Room No: N/A Demographics Patient Last Name: Luciana Patient First Name: Heri Language/Communication Barrier: none Service Address: [address] [place] [address] City: [facility] ST: [place] Service ZIP: [address] Service (home) Other phone numbers: Telephone Information: Emergency Contact: Extended Emergency Contact Information Primary Emergency Contact: MadisonCt Relation: None Admission Information Admit Date: 03/24/2023 Patient status at discharge: Inpatient Admitting Diagnosis Other chronic osteomyelitis, unspecified site ([facility]) [M86.60] Displaced comminuted fracture of shaft of left femur, subsequent encounter for closed fracture with malunion [S72.352P] Chronic osteomyelitis of right tibia (CMS/HCC) ([facility]) [M86.661] Caregiver Information Caregiver First Name: Ct Caregiver Last Name: Short Caregiver Relationship to Patient girlfriend Caregiver Caregiver Notes: N/A [employer] HIGHTECH: HI TECH - IV Orders: IV Method of Administration: IM Date and Time of Next Dose Due: 10am day after discharge Infusion Company: [facility] Infectious Disease Physician: Rosendo Gross [...] to be drawn weekly. Fax results to [phone]. Following Physician/Facility: [facility] [place] TECH - PICC CARE Line and Location: Left Basilic Orders: Flush PICC with 10cc NS, administer medication, flush with 10cc NS and end with 5ml heparin flush. Change PICC dressing weekly and PRN. Teachable Caregiver Teachable Caregiver First Name: Ct Teachable Caregiver Last Name: Short Teachable Caregiver Relationship to Patient: girlfrienshahid Teachable Caregiver Teachable Caregiver Notes: N/A Teachable [...] (Hospital/Unit): / [id number] A End PACC Note [facility] 03-28-[facility]23 Note Formatting of this n ote is different from the original. Start PACC Note Home Health Referral Educated patient on Home Care and services available. Patient offered choice of available HHC and agreeable to SN services with [employer] at Home - Home Care. Care Types: [...] is noted as yes - consider a WATER QUALITY CONTROL ENGINEER evaluation once the patient returns home. START PATIENT REGISTRATION INFORMATION Order Information Order Signing Physician: Kendell Griffiths MD Service Ordered RN ?: Yes Service Ordered PT ?: No Service Ordered OT ?: No Service Ordered ST ?: No Service Ordered WATER QUALITY CONTROL ENGINEER?:No Service Ordered FRONT DESK HOST?: No Following Physician: Rosendo Gross DO Following Physician Overseeing Physician: n/a (Required for Residents only) Agreeable to Follow? Yes Date/Time of Call 03/28/23 2:58 PM, Spoke with: Infectious Disease Care Coordination Same Day SOC?: No Primary Care Physician: Awilda Rodney Primary Care Physician Primary Care Physician Address: [address] [place] [id number] Visit Instructions: N/A Service Discharge Location Type: Home with Home Health Care Service Facility Name: N/A Service Floor Facility: N/A Service Room No: N/A Demographics Patient Last Name: Luciana Patient First Name: Heri Language/Communication Barrier: none Service Address: [address] [place] [address] Service City: [facility] ST: [place] Service ZIP: [address] Service (home) Other phone numbers: Telephone Information: Emergency Contact: Extended Emergency Contact Information Primary Emergency Contact: Ct Wallace Relation: None Admission Information Admit Date: 03/24/2023 Patient status at discharge: Inpatient Admitting Diagnosis Other chronic osteomyelitis, unspecified site (HCC) [M86.60] Displaced comminuted fracture of shaft of left femur, subsequent encounter for closed fracture with malunion [S72.332J] Chronic osteomyelitis of right tibia (CMS/HCC) (HCC) [M86.661] Caregiver Information Caregiver First Name: Ct Caregiver Last Name: Short Caregiver Relationship to Patient girlfriend Caregiver Caregiver Notes: N/A [employer] HIGHTECH: HI TECH - IV Orders: IV Method of Administration: IM Date and Time of Next Dose Due: 10am day after discharge Infusion Company: [facility] Infectious Disease Physician: Rosendo Gross [...] to be drawn weekly. Fax results to [phone]. Following Physician/Facility: [facility]: [employer] TECH - PICC CARE Line and Location: [...] (Hospital/Unit): / H-[id number]/[id number] A End PACC Note [facility] 03-28-2023 Note Formatting of this n ote might be different from the original. From [facility] Infusion: [place] [employer] eff: 03/14/2023, Ded: $3200,OOP: $5600, Coinsurance: 80/20%. Pt updated. [facility] 03-28-2023 Note Formatting of this n ote might be different from the original. From [facility] Infusion: [place] [employer] eff: 03/14/2023, Ded: $3200,OOP: $5600, Coinsurance: 80/20%. Pt updated. [facility] 03-28-2023 Plan of care note Problem: Pain - Adult Goal: Verbalizes/displays adequate comfort level or baseline comfort level Outcome: Progressing Flowsheets (Taken 03/24/20231526 by Steffi Barroso RN) Verbalizes/displays adequate comfort level or baseline comfort level: Assess pain using appropriate pain scale Implement non-pharmacological measures as appropriate and evaluate response Problem: Safety - Adult Goal: Free from fall injury Outcome: Progressing Flowsheets (Taken 03/24/20231526 by Steffi Barroso RN) Free from fall injury: Instruct family/caregiver on patient safety Based on caregiver fall risk screen, instruct family/caregiver to ask for assistance with transferring if caregiver noted to have fall risk factors [facility] 03-28-2023 Note Care Management Prog ress Note [...] Stay (Days): 4 GMLOS: No GMLOS Documented [facility] 03-28-2023 Note Formatting of this n [...] Stay (Days): 4 GMLOS: No GMLOS Documented [facility] 03-28-2023 Note Formatting of this n [...] Stay (Days): 4 GMLOS: No GMLOS Documented [facility] 03-28-2023 Note [facility] CARE UNIT PCU H6 [address] [facility] [address] Dept: [phone] Adult Orthopaedic Service Patient Name: Heri Chowdhury [...] MD Orthopaedic Surgery, PGY-2 03/28/2023 6:14 AM [facility] 03-27-2023 Note Wallpaper Cleaner fo ericg case for Discharge Needs. Referral sent to [facility] for verification of in home infusion benefits [facility] 03-27-2023 Note Formatting of this n ote might be different from the original. Wallpaper Cleaner following case for Discharge Needs. Referral sent to [facility] for verification of in home infusion benefits [facility] 03-27-2023 Note Formatting of this n ote might be different from the original. Wallpaper Cleaner following case for Discharge Needs. Referral sent to [facility] for verification of in home infusion benefits [facility] 03-27-2023 Note Hospitalist Progress Note 03/27/2023 Subjective: [...] disease) LABS: CBC: Recent Labs 03/25/23 0047 03/26/23 0407 WBC 8.3 6.1 RBC 3.32* 3.40* HGB 11.0* 11.3* HCT 33.4* 34.5* MCV 100.4* 101.4* RDW 15.0* 14.9* PLT 253 253 BMP: Recent Labs 03/25/23 0047 03/26/23 0407 03/27/23 0315 NA 134* 135 [...] ORIF 1997 -Orthopedics managing -Pain control, PT/OT -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 [...] Fadi Denney MD Division of Hospitalist Medicine [facility] 03-27-2023 Note [facility] UN[facility] PCU H6 [address] [facility] [address] Dept: [phone] Adult Orthopaedic Service Patient Name: Heri Chowdhury [...] MD Orthopedic Surgery, PGY5 03/27/23 9:49 AM [facility] 03-26-2023 Note Hospitalist Progress Note 03/26/2023 [...] reflux disease) LABS: CBC: Recent Labs 03/25/23 4603/26/23406 WBC 8.3 6.1 RBC 3.32* 3.40* HGB [...] ORIF 1997 -Orthopedics managing -Pain control, PT/OT -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 [...] Division of Hospitalist Medicine [employer] [facility] 03-26-2023 Note Addendum created 1255 by Lizeth Sanchez APRN - CERTIFIED MEDICAL DOSIMETRIST Clinical Note Signed, SmartForm saved [facility] 03-26-2023 Note [facility] UN[facility] PCU H6 [address] [facility] [address] Dept: [phone] Adult Orthopaedic Service Patient Name: Heri Chowdhury [...] MD Orthopedic Surgery, PGY5 03/26/23 11:08 AM [facility] 03-26-2023 Note Formatting of this n ote is different from the original. Addendum created 03/26/23 1255 by NISHI Strange CNP Clinical Note Signed, SmartForm saved [facility] [employer] Work Phone: 03-26-2023 Miscellaneous Notes Addendum created 03/26/23 1255 by NISHI Strange CNP Clinical Note Signed, SmartForm saved documented in this encounter [facility] 03-26-2023 Plan of care note The patient [...] to address these barriers include continue POC. [facility] 03-26-2023 Note Pharmacy to Dose Van comycin [...] 7:31 AM Rima Hollins PharmD Available via [employer]y [employer] [facility] 03-25-2023 Note PHYSICAL THERAPY [facility] Initial Evaluation Name/MRN: Heri Chowdhury ([id number]) Evaluation Date: 03/25/2023 Date of : 1970 Admission Date: 03/24/2023 5:34 AM Age: 52 y.o. [facility] Discharge Recommendation: Home with assist PRN [...] Noted Chronic osteomyelitis of right tibia (CMS/HCC) ([facility]) 03/24/2023 Chronic osteomyelitis (CMS/HCC) ([facility]) 01/13/2021 GERD without esophagitis 01/13/2021 Medical [...] Independent Receives Help From: Significant other Active Er Medical Technician: Prior Level of Function ADL Assistance: Independent [...] or more (i.e. (more content not included)... [facility] 03-25-2023 Note Formatting of this n ote might be different from the original. Care Managment Initial Assessment Date: 03/25/2023 Patient Name: Heri Chowdhury : 1970 Patient Information Source of Information: Patient Cognition/Language: WFL - Within Functional Limits Permission given to speak with patient financial services sales representative/caregiver as indicated: Yes Confirmation of Payer with patient/family: Yes Payer Name: [place] [employer] [place]: Confirmation of Primary Care Physician: Confirmed PCP [...] consulted for home going ATB recommendation. [employer]gall liaison Gamal regarding home care. Discharge plan is home. Patient is agreeable to home care. TCC to assist and follow as needed. Steffany Montes RN [facility] [employer] 03-25-2023 Note Formatting of this n ote might be different from the original. Care Managment Initial Assessment Date: 03/25/2023 Patient Name: Heri Chowdhury : 1970 Patient Information Source of Information: Patient Cognition/Language: WFL - Within Functional Limits Permission given to speak with patient financial services sales representative/caregiver as indicated: Yes Confirmation of Payer with patient/family: Yes Payer Name: Alexandria Velazquez [employer] [place]: Confirmation of Primary Care Physician: Confirmed PCP [...] for home going ATB recommendation. Secure message [facility] liaison Gamal regarding home care. Discharge plan is home. Patient is agreeable to home care. TCC to assist and follow as needed. 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 Costa and Leanna Mendenhall PASTE MIXER cover this weekend Mitali Breaux MD Based on diagnoses and management, combination of acute and chronic problems, exacerbations and/or acuity, this visit should be considered to be of moderate complexity. [facility] 03-25-2023 Note Hospitalist Progress Note 03/25/2023 Subjective: Admit Date: 03/24/2023 PCP: Awilda Rodney Room#: [id number] A Brief Hospital course: Patient is a [...] ORIF 1997 -Orthopedics managing -Pain control, PT/OT -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 [...] Fadi Denney MD Division of Hospitalist Medicine [facility] 03-25-2023 Consult note Associated Order (s): IP CONSULT TO ANESTHESIOLOGY - ACUTE PAIN SERVICE PAGING: The Acute Pain Service providers are available exclusively via [employer] SECURE CHAT. APS does not utilize pagers. 03/25/2023 Lab [...] Active Problem List Diagnosis Chronic osteomyelitis (CMS/HCC) ([facility]) GERD without esophagitis Chronic osteomyelitis of right tibia (CMS/HCC) ([facility]) Review of Systems Constitutional: Negative for [...] Pain Service providers are available exclusively via [employer] SECURE CHAT. APS does not utilize pagers. [facility] [employer] Work Phone: 03-25-2023 Consult note Associated Order (s): IP CONSULT TO ANESTHESIOLOGY - ACUTE PAIN SERVICE PAGING: The Acute Pain Service providers are available exclusively via [employer] SECURE CHAT. APS does not utilize pagers. 03/25/2023 Lab [...] Active Problem List Diagnosis Chronic osteomyelitis (CMS/HCC) ([facility]) GERD without esophagitis Chronic osteomyelitis of right tibia (CMS/HCC) ([facility]) Review of Systems Constitutional: Negative for [...] Pain Service providers are available exclusively via [employer]. APS does not utilize pagers. Associated Order(s): IP CONSULT TO HOSPITALIST Images from the original note were not included. Hospital Medicine Consult Patient - Heri Chowdhury, Age - 52 y.o. - 1970 Room Number - [id number] Consulting - Kendell Griffiths MD [phone] Date of Admission - 03/24/2023 5:34 AM [...] Distal Femur ORIF FEMUR FRACTURE SURGERY Left 1985 [employer] ORIF SKIN GRAFT Right x2 for [...] Ringer's, 50 mL/hr, Last Rate: Stopped (03/24/23 09) PRN medications: HYDROmorphone OR HYDROmorphone, methocarbamol, naloxone, [...] MD Division of Hospitalist Medicine Inpatient Medical Services/[facility] Associated Order(s): IP CONSULT TO INFECTIOUS DISEASES Images from the original note were not included. 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 Pt was in a [facility] at [place] 27 where he sustained compound fractures of his BLEs requiring plates, grafts, flap closure. In April 2018, his incision opened up on its own. Pt nursed it at home with OTC antibiotic ointment, peroxide for 2 months. Pt reports a few weeks later, it recurred. His leg became red, swollen, and painful. Pt was seen in the [place] ED and diagnosed with a bone infection. 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 documented in this encounter [facility] 03-25-2023 Note [facility] PCU H6 [address] [facility] [address] Dept: [phone] Adult Orthopaedic Service Patient Name: Heri Chowdhury [...] MD Orthopaedic Surgery, PGY-2 03/25/2023 6:26 AM [facility] 03-24-2023 Consult note Associated Order (s): IP CONSULT TO HOSPITALIST Images from the original note were not included. Hospital Medicine Consult Patient - Heri Chowdhury, Age - 52 y.o. - 1970 Room Number - [id number] Consulting - Kendell Griffiths MD Primary [phone] Date of Admission - 03/24/2023 5:34 AM [...] Contact Information Primary Emergency Contact: Ct Wallace [place] Relation: None Luis Enrique Leach MD Division of Hospitalist Medicine Inpatient Medical Services/[facility] [employer] Phone: 03-24-2023 Plan of care note Problem: [...] caregiver noted to have fall risk factors [facility] 03-24-2023 Consult note Associated Order (s): IP CONSULT TO INFECTIOUS DISEASES Images from the original note were not included. 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 Pt was in a [facility] at age 27 where he sustained compound fractures of his BLEs requiring plates, grafts, flap closure. In April 2018, his incision opened up on its own. Pt nursed it at home with OTC antibiotic ointment, peroxide for 2 months. Pt reports a few weeks later, it recurred. His leg became red, swollen, and painful. Pt was seen in the [place] ED and diagnosed with a bone infection. 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 Smart[employer] system 03-24-2023 Note Formatting of this n ote might be different from the original. Report called to BALJIT Andrews SmartCare system 03-24-2023 Note Formatting of this n ote might be different from the original. Report called to BALJIT Andrews SmartCare system 03-24-2023 Note Patient Name: Татьяна Chowdhury Date of : 1970 Date: 04/04/23 Discharge Summary Admit date: 03/24/2023 Discharge date and time: 03/28/2023 6:06 PM Admitting Physician: Kendell Griffiths MD Admission Diagnoses: Chronic osteomyelitis of right tibia (CMS/HCC) ([facility]), Infected tibial hardware Discharge Diagnoses: Chronic osteomyelitis [...] was d/c in stable condition. Disposition: per / Discharge Medications: Medication List START taking these [...] These medications were sent to [id number] - [place], [place] - [address] [place] [address] aspirin 81 MG EC tablet oxyCODONE 5 [...] Signed: Osmany Driver MD 04/04/2023 1:17 PM [facility] 03-24-2023 Note Formatting of this n ote might be different from the original. Family at bedside [facility] 03-24-2023 Note Formatting of this n ote might be different from the original. Family at bedside [facility] 03-24-2023 Note Patient: Heri Barnard er Procedure Summary Date: 03/24/23 Room / Location: [facility] OR [address] [place] [address] Operating Room Anesthesia Start: 0700 Anesthesia Stop: [...] Time BP 104/67 03/24/23 0902 Temp 97.5 01/11/24 0907 Pulse 79 03/24/23 0906 Resp 15 03/24/23 0906 SpO2 99 % 03/24/23 09 Vitals shown [...] once all PACU criteria has been met. [facility] 03-24-2023 Note Patient: Heri Barnard er Procedure Summary Date: 03/24/23 Room / Location: [facility] OR [address] [place] [address] Operating Room Anesthesia Start: 0700 Anesthesia Stop: 905 Procedures: HOLD ANTIBIOTICS FOR CULTURES, REMOVAL LATERAL [...] 15 03/24/23 0905 SpO2 99 % 03/24/23 0905 Vitals shown include unfiled device data. Anesthesia [...] the day of surgery or procedure by , LAURENT senior service technician proxy staff ([id number]) The patient did not [...] opportunity for questions and acknowledgement of understanding. [facility] 03-24-2023 Note Peripheral Block Time Out: 03/24/2023 8:56 AM Patient location during procedure: Procedural Start time: 03/24/2023 8:57 AM End time: 03/24/2023 8:59 AM Reason for block: at surgeon's request and post-op pain management Staffing Performed: DIRECTOR ACUTE Resident/DIRECTOR ACUTE: Marv Valenzuela APRN - ARCHANA Preanesthetic Checklist [...] No paresthesias reported by patient during injectionMedications yseSLZTXcafhf-vgugvvzoxus-myovlvvga ne (TAP) syringe - Injection 20 mL - 03/24/2023 8:57:00 AM [facility] 03-24-2023 Note Formatting of this n ote might be different from the original. BREAKFAST TRAY ORDERED FOR PATIENT PER HIS CHOICES [facility] 03-24-2023 Note Formatting of this n ote might be different from the original. BREAKFAST TRAY ORDERED FOR PATIENT PER HIS CHOICES [facility] 03-24-2023 Note Airway Date/Time: 03/24/2023 7:35 AM Urgency: scheduled Airway not difficult General Information and Staff Patient location during procedure: Procedural Anesthesiologist: Barrie Macario MD Resident/DIRECTOR ACUTE: Adriel Triplett CRNA Performed: DIRECTOR ACUTE Performed by: Adriel Triplett CRNA Authorized by: [...] due to inability to ventilate with SGA [facility] 03-24-2023 Note Peripheral Block Time Out: 03/24/2023 7:02 AM Patient location during procedure: pre-op Start time: 03/24/2023 7:03 AM End time: 03/24/2023 7:07 AM Reason for block: at surgeon's request and post-op pain management Staffing Performed: DIRECTOR ACUTE Resident/DIRECTOR ACUTE: Marv Valenzuela APRN - ARCHANA Preanesthetic Checklist Completed: patient identified, IV checked, site marked, risks and benefits discussed, surgical consent, monitors and equipment checked, pre-op evaluation and timeout performed Region: Lower Extremities Primary: Popliteal (Bupivacaine 0.375% with dexamethasone 0.01% with epinephrine 1:200,000) Peripheral Block Patient position: supine Prep: ChloraPrep Patient monitoring: signal system testing maintainer, continuous pulse ox and heart rate O2: [...] - IntraVENous 2 mg - 03/24/2023 7:03:00 XKuidBPKEGnbtdi-fmqleroeakw-gjyqhji rine (TAP) syringe - Injection 30 mL - 03/24/2023 7:03:00 AM [facility] 03-24-2023 Note Formatting of this n ote might be different from the original. Patient family/visitor updated by RN at this time. [facility] 03-24-2023 Note Formatting of this n ote might be different from the original. Patient family/visitor updated by RN at this time. [facility] 03-24-2023 Hospital Discharge instructions Tiburcio Camarillo MD [...] schedule your appointment as soon as possible. Grey RN - 03/28/2023 3:11 PM EST [...] (160 lb) Mental Status: {REY Patient Mental Status:67191} IV Access: {REY IV Access:44287} Nursing Mobility/ADLs: Walking {LINDA ADL::: Independent } Transfer {LINDA ADL::: Independent } Bathing {LINDA ADL:40792:: Independent } Dressing {LINDA ADL:81785:: Independent } Toileting {LINDA ADL:85133:: Independent } Feeding {LINDA ADL:49494:: Independent } Chemical Sales Representative {LINDA ADL:97345:: Independent } Med Delivery {yes/no:54522} Wound Care Documentation and Therapy: Wound/Incision 03/24/23 Incision Calf Anterior;Right (Active) Site Assessment Unable to assess 03/28/23909 Ann-Wound Assessment Clean;Dry;Intact 03/25/23 1000 Odor None 03/27/232034 Drainage Amount None 03/27/232034 Primary Dressing Vacuum dressing 03/28/23909 Dressing Status Clean, dry & intact 03/28/23909 Number of days: 4 Elimination: Continence: Bowel: {yes/no:14436} Bladder: {yes/no:26026} Urinary Catheter: {REY Urinary Catheter:63135} Colostomy/Ileostomy/Ileal Conduit: {YES / NO:} Date of Last BM: Intake/Output Summary (Last 24 hours) at 03/28/2023 151 Last data filed at 03/28/2023 0543 Gross per 24 hour Intake 600 ml Output 750 ml Net -150 ml I/O last 3 completed shifts: In: 1100 (15.2 mL/kg) [P.O.:1100] Out: 1350 (18.6 mL/kg) [Urine:1350 (0.5 mL/kg/hr)] Weight: 72.6 kg Safety Concerns: {REY Safety Concerns:93998} Impairments/Disabilities: {REY Impairments/Disabilities:69897} Nutrition Therapy: Current Nutrition Therapy: {REY Diet List:19758} Routes of Feeding: {routes of feedin} Liquids: {liquid consistency:80632} Daily Fluid Restriction: {daily fluid restriction:16185} Last Modified Barium Swallow with Video (Video Swallowing Test): {done not done:43476} Treatments at the Time of Hospital Discharge: Respiratory Treatments: Oxygen Therapy: {Therapy; copd oxygen:44648} Ventilator: {REY Ventilator:07176} Rehab Therapies: {GEN THERAPY DISCIPLINE SCAL:2635615} Weight Bearing Status/Restrictions: {POD WEIGHT BEARIN} Other Medical Equipment (for information only, NOT a DME order): {Assistive Devices DME:46205} Other Treatments: Patient's personal belongings (please select all that are sent with patient): {REY Patient Belongings:24068} RN SIGNATURE: {E-signature:53739} CASE MANAGEMENT/SOCIAL WORK SECTION Inpatient Status Date: Readmission Risk Assessment Score: @READMISSIONRISKDETAILS@ Discharging to Facility/ Agency Name: [facility] Home Address: [address] [place] [address] Dialysis Facility (if applicable) Name: Address: Dialysis Schedule: Phone: Fax: Intervention Teacher/Track Greaser signature: {E-signature:67857} PHYSICIAN SECTION Prognosis: {Rehab Prognosis:95320} Condition at Discharge: {Patient Condition:40493} Rehab Potential (if transferring to Rehab): {Rehab Prognosis:24832} Recommended Labs or Other Treatments After Discharge: Physician Certification: I certify the above information and transfer of Heri Chowdhury is necessary for the continuing treatment of the diagnosis listed and that he requires {REY Level of Care:33697} for {greater less than:66998} 30 days. Update Admission H&P: {REY Changes in H&P:02213} PHYSICIAN SIGNATURE: {E-signature:53889} documented in this encounter [facility] 03-24-2023 Note H&P reviewed. The pa wood was examined and there are no changes to the H&P. [facility] 03-24-2023 Attending History and physical note [...] at his convenience. Surgery Scheduling Instructions Location: [facility] Duration: 90 minutes Type: SDA Anesthesia: GA + regional block Position: supine Table: Regular, head piece at foot Radiology: Large C-Arm CPT Code: 53844, 68833 Procedure: Removal lateral tibial plateau plate, incision and drainage of deep right leg abscess, possible application wound VAC Equipment: Screwdriver tray, broken screw set available, cystoscopy tubing, wound VAC available Other: Hold antibiotics for cultures follow-up: 2 weeks 2v tibia Electronically signed by Kendell Griffiths M.D. 02/23/2023 at 2:59 PM. [employer] Work Phone: 03-24-2023 Note Formatting of this n ote might be different from the original. [facility] OR [address] [facility] [address] Dept: [phone] Loc: [phone] Operative Report Patient Name: Heri Chowdhury Date of : 1970 Date of Surgery: 03/24/23 Pre-operative diagnosis: Right tibial plateau fracture with infected hardware and multiple draining sinus tracts Post-operative diagnosis: Same Procedure(s): Removal deep hardware right tibia Incision and drainage of multiple abscesses including skin, subcutaneous tissues, and bone Surgeon: Kendell Griffiths M.D. Contact Centre Supervisor(s): Osmany Driver M.D. and Max Argueta M.D. [...] as well as medical complications such as OK, stroke, PE, DVT, and even . Specific [...] Kendell Griffiths MD at 03/24/23, 11:55 AM [facility] 03-24-2023 Note Formatting of this n [...] RIGHT LEG ABSCESS, POSSIBLE APPLICATION WOUND VAC 83369 - MA REMOVAL IMPLANT DEEP INCISION AND DRAINAGE LEG OR ANKLE DEEP ABSCESS OR HEMATOMA 41302 - MA INCISION & DRAINAGE LEG/ANKLE ABSCESS/HEMATOMA Surgeons * Kendell Griffiths - Primary Procedure Summary Anesthesia: General ASA: II Estimated Blood Loss: <50cc Drains: * None in log * Specimens ID Source Type Tests Collected By Collected At Frozen? Priority Lab ID A Leg, Right Swab AEROBIC AND ANAEROBIC CULTURE WITH STAIN Kendell Griffiths MD 03/24/23 0748 Routine [id number], [id number] Description: RIGHT LEG ABSESS B Leg, Right Tissue AEROBIC AND ANAEROBIC CULTURE WITH STAIN Kendell Griffiths MD 03/24/23 0815 Routine [id number], [id number] Description: RIGHT LEG ABSESS #2 C Leg, Right Tissue AEROBIC AND ANAEROBIC CULTURE WITH STAIN Kendell Griffiths MD 03/24/23 0819 Routine [id number], [id number] Description: RIGHT LEG ABSESS #3 Implants Type Name Action Serial No. [employer] Bone GRAFT BONE RAPID 10CC STIMULAN - [id number] Implanted Staff: Pipe Line Repairer: Rancho Lyman RN Scrub Person: Malachi Moscoso [...] Griffiths in 2 weeks Admit to ortho [facility] 03-24-2023 Note Formatting of this n ote might be different from the original. [facility] OR [address] [facility] [address] Dept: [phone] Loc: [phone] Operative Report Patient Name: Heri Chowdhury Date of : 1970 Date of Surgery: 03/24/23 Pre-operative diagnosis: Right tibial plateau fracture with infected hardware and multiple draining sinus tracts Post-operative diagnosis: Same Procedure(s): Removal deep hardware right tibia Incision and drainage of multiple abscesses including skin, subcutaneous tissues, and bone Surgeon: Kendell Griffiths M.D. Contact Centre Supervisor(s): Osmany Driver M.D. and Max Argueta M.D. [...] as well as medical complications such as OK, stroke, PE, DVT, and even . Specific [...] Kendell Griffiths MD at 03/24/23, 11:55 AM [facility] 03-24-2023 Note Formatting of this n [...] RIGHT LEG ABSCESS, POSSIBLE APPLICATION WOUND VAC 80925 - MA REMOVAL IMPLANT DEEP INCISION AND DRAINAGE LEG OR ANKLE DEEP ABSCESS OR HEMATOMA 33457 - MA INCISION & DRAINAGE LEG/ANKLE ABSCESS/HEMATOMA Surgeons * Kendell Griffiths - Primary Procedure Summary Anesthesia: General ASA: II Estimated Blood Loss: <50cc Drains: * None in log * Specimens ID Source Type Tests Collected By Collected At Frozen? Priority Lab ID A Leg, Right Swab AEROBIC AND ANAEROBIC CULTURE WITH STAIN Kendell Griffiths MD 03/24/23 0748 Routine [id number], [id number] Description: RIGHT LEG ABSESS B Leg, Right Tissue AEROBIC AND ANAEROBIC CULTURE WITH STAIN Kendell Griffiths MD 03/24/23 0815 Routine [id number], [id number] Description: RIGHT LEG ABSESS #2 C Leg, Right Tissue AEROBIC AND ANAEROBIC CULTURE WITH STAIN Kendell Griffiths MD 03/24/23 0819 Routine [id number], [id number] Description: RIGHT LEG ABSESS #3 Implants Type Name Action Serial No. [employer] Bone GRAFT BONE RAPID 10CC STIMULAN - [id number] Implanted Staff: Pipe Line Repairer: Rancho Lyman RN Scrub Person: Malachi Moscoso [...] Griffiths in 2 weeks Admit to ortho [facility] [employer] 03-24-2023 History and physical note H&P reviewed. [...] at his convenience. Surgery Scheduling Instructions Location: [facility] Duration: 90 minutes Type: SDA Anesthesia: GA + regional block Position: supine Table: Regular, head piece at foot Radiology: Large C-Arm CPT Code: 11302, 69510 Procedure: Removal lateral tibial plateau plate, incision and drainage of deep right leg abscess, possible application wound VAC Equipment: Screwdriver tray, broken screw set available, cystoscopy tubing, wound VAC available Other: Hold antibiotics for cultures follow-up: 2 weeks 2v tibia Electronically signed by Kendell Griffiths M.D. 02/23/2023 at 2:59 PM. documented in this encounter [facility] 03-23-2023 Note Subjective: Heri is here for [...] his convenience. Abdoulaye Welsh PA-C Orthopedic Surgery [facility] 03-23-2023 History and physical note Subjective: [...] his convenience. Abdoulaye Welsh PA-C Orthopedic Surgery [facility] 03-23-2023 History and physical note Subjective: [...] knee osteoarthritis. Assessment 1. Chronic osteomyelitis (CMS/HCC) ([facility]) 2. Closed disp comminuted fracture of shaft [...] PA-C Orthopedic Surgery documented in this encounter [facility] 03-21-2023 Note Patient: Heri [facility] er Procedure Information Date/Time: 03/24/23 0730 Procedures: HOLD ANTIBIOTICS FOR CULTURES, REMOVAL LATERAL TIBIAL PLATEAU PLATE, INCISION AND DRAINAGE OF DEEP RIGHT LEG ABSCESS, POSSIBLE APPLICATION WOUND VAC (Right: Leg Lower) INCISION AND DRAINAGE LEG OR ANKLE DEEP ABSCESS OR HEMATOMA (Right: Leg Lower) Location: [facility] OR [address] [place] [address] Operating Room Surgeons: Kendell Griffiths MD Relevant [...] found for this or any previous visit. [employer] [facility] 03-01-2023 Telephone encounter Note PAT orders done [employer] Work Phone: 03-01-2023 Miscellaneous Notes PAT orders done Case # [id number] PAT phone call on 03/21/2023 @ 11:00am Authorized per Donte LARA Auth # [id number] Images from the original note were not included. Authorization request faxed: [facility] followed prompts to have an inpatient authorization request form faxed to [phone] Please enter PAT orders: [facility] PAT: Surgery: 03/24/2023 @ 7:30am, Case # Procedure: Removal lateral tibial plateau plate, incision and drainage of deep right leg abscess, possible application wound VAC DX: Chronic osteomyelitis (CMS/HCC) ([facility]) - M86.60 Closed disp comminuted fracture of shaft of left femur of malunion - S72.352P Anesthesia: GA + regional block Insurance: [employer] Allergies: Codeine, Diazepam, Morphine Additional Equipment: Ancef 2 Surgery Scheduling Instructions Location: [facility] Duration: 90 minutes (105 mins) Type: SDA Anesthesia: GA + regional block Position: supine Table: Regular, head piece at foot Radiology: Large C-Arm CPT Code: 92135, 94176 Procedure: Removal lateral tibial plateau plate, incision and drainage of deep right leg abscess, possible application wound VAC Equipment: Screwdriver tray, broken screw set available, cystoscopy tubing, wound VAC available Other: Hold antibiotics for cultures follow-up: 2 weeks 2v tibia documented in this encounter [facility] 02-28-2023 Telephone encounter Note Case # [id number] PAT phone call on 03/21/2023 @ 11:00am Authorized per [employer] Auth # [id number] [facility] 02-28-2023 Miscellaneous Notes Case # [id number] PAT phone call on 03/21/2023 @ 11:00am [facility] Auth # [id number] Images from the original note were not included. Authorization request faxed: Called [facility] at followed prompts to have an inpatient authorization request form faxed to [phone] Please enter PAT orders: [facility] PAT: Surgery: 03/24/2023 @ 7:30am, Case # Procedure: Removal lateral tibial plateau plate, incision and drainage of deep right leg abscess, possible application wound VAC DX: Chronic osteomyelitis (CMS/HCC) ([facility]) - M86.60 Closed disp comminuted fracture of shaft of left femur of malunion - S72.352P Anesthesia: GA + regional block Insurance: [place] LARA Allergies: Codeine, Diazepam, Morphine Additional Equipment: Ancef 2 Surgery Scheduling Instructions Location: [facility] Duration: 90 minutes (105 mins) Type: SDA Anesthesia: GA + regional block Position: supine Table: Regular, head piece at foot Radiology: Large C-Arm CPT Code: 81559, 14239 Procedure: Removal lateral tibial plateau plate, incision and drainage of deep right leg abscess, possible application wound VAC Equipment: Screwdriver tray, broken screw set available, cystoscopy tubing, wound VAC available Other: Hold antibiotics for cultures follow-up: 2 weeks 2v tibia documented in this encounter [facility] 02-24-2023 Telephone encounter Note Images from the original note were not included. Authorization request faxed: [facility] 02-24-2023 Miscellaneous Notes Images from the original note were not included. [facility] followed prompts to have an inpatient authorization request form faxed to [phone] Please enter PAT orders: [facility] PAT: Surgery: 03/24/2023 @ 7:30am, Case # Procedure: Removal lateral tibial plateau plate, incision and drainage of deep right leg abscess, possible application wound VAC DX: Chronic osteomyelitis (CMS/HCC) ([facility]) - M86.60 Closed disp comminuted fracture of shaft of left femur of malunion - S72.352P Anesthesia: GA + regional block Insurance: [employer] Allergies: Codeine, Diazepam, Morphine Additional Equipment: Ancef 2 Surgery Scheduling Instructions Location: [facility] Duration: 90 minutes (105 mins) Type: SDA Anesthesia: GA + regional block Position: supine Table: Regular, head piece at foot Radiology: Large C-Arm CPT Code: 82240, 71544 Procedure: Removal lateral tibial plateau plate, incision and drainage of deep right leg abscess, possible application wound VAC Equipment: Screwdriver tray, broken screw set available, cystoscopy tubing, wound VAC available Other: Hold antibiotics for cultures follow-up: 2 weeks 2v tibia documented in this encounter [facility] 02-24-2023 Telephone encounter Note Called [facility] at followed prompts to have an inpatient authorization request form faxed to [phone] [facility] 02-23-2023 Telephone encounter Note Please enter PAT orders: LEXIE PAT: Surgery: 03/24/2023 @ 7:30am, Case # Procedure: Removal lateral tibial plateau plate, incision and drainage of deep right leg abscess, possible application wound VAC DX: Chronic osteomyelitis ([facility]) ([facility]) - M86.60 Closed disp comminuted fracture of shaft of left femur of malunion - S72.352P Anesthesia: GA + regional block Insurance: [place] [employer] Allergies: Codeine, Diazepam, Morphine Additional Equipment: Ancef 2 Surgery Scheduling Instructions Location: [facility] Duration: 90 minutes (105 mins) Type: SDA Anesthesia: GA + regional block Position: supine Table: Regular, head piece at foot Radiology: Large C-Arm CPT Code: 45983, 63195 Procedure: Removal lateral tibial plateau plate, incision and drainage of deep right leg abscess, possible application wound VAC Equipment: Screwdriver tray, broken screw set available, cystoscopy tubing, wound VAC available Other: Hold antibiotics for cultures follow-up: 2 weeks 2v tibia [facility] 02-22-2023 Note Subjective: Heri is here for [...] at his convenience. Surgery Scheduling Instructions Location: [facility] Duration: 90 minutes Type: SDA Anesthesia: GA + regional block Position: supine Table: Regular, head piece at foot Radiology: Large C-Arm CPT Code: 97786, 46721 Procedure: Removal lateral tibial plateau plate, incision and drainage of deep right leg abscess, possible application wound VAC Equipment: Screwdriver tray, broken screw set available, cystoscopy tubing, wound VAC available Other: Hold antibiotics for cultures follow-up: 2 weeks 2v tibia Electronically signed by Kendell Griffiths M.D. 02/23/2023 at 2:59 PM. [facility] 02-22-2023 History of Present illness Narrative [...] at his convenience. Surgery Scheduling Instructions Location: [facility] Duration: 90 minutes Type: SDA Anesthesia: GA + regional block Position: supine Table: Regular, head piece at foot Radiology: Large C-Arm CPT Code: 97662, 59511 Procedure: Removal lateral tibial plateau plate, incision and drainage of deep right leg abscess, possible application wound VAC Equipment: Screwdriver tray, broken screw set available, cystoscopy tubing, wound VAC available Other: Hold antibiotics for cultures follow-up: 2 weeks 2v tibia Electronically signed by Kendell Griffiths M.D. 02/23/2023 at 2:59 PM. documented in this encounter [facility] 12-07-2022 History of Present illness Narrative Subjective: [...] Psych he is being managed by Dr. Breaux for infectious disease. He is interested in [...] at 2:46 PM. documented in this encounter [facility] 11-29-2022 Telephone encounter Note This is done. Patient scheduled on 12/07/[address] Griffiths [facility] 11-29-2022 Miscellaneous Notes This is done. Patient scheduled on 12/07/[address] Griffith[address] Ct to let her know that we will have to the patient in for an appointment prior to scheduling sx. No answer. LVM with information and number for her to call us back to schedule. Patient will need appointment with updated films. Name of Caller: Ct Contact Phone Number: [phone] Reason for Appointment: SO of Pt requesting to schedule sx last discussed at OV 08/27/2020. Please call Ct to advise if sx can be scheduled or if Pt needs seen in office first. Office Name: Dr Griffiths documented in this encounter [facility] 11-29-2022 Telephone encounter Note Called Ct to let her know that we will have to the patient in for an appointment prior to scheduling sx. No answer. LVM with information and number for her to call us back to schedule. [facility] 11-29-2022 Telephone encounter Note Patient will need appointment with updated films. [facility] [employer] Work Phone: 11-29-2022 Telephone encounter Note Name of Caller: Ct Contact Phone Number: [phone] Reason for Appointment: SO of Pt requesting to schedule sx last discussed at OV 08/27/2020. Please call Ct to advise if sx can be scheduled or if Pt needs seen in office first. Office Name: Dr Griffiths [facility] 11-02-2022 History of Present illness Narrative [facility] Infectious Diseases Attending Outpatient Consult Note Chief Complaint Patient presents with Follow-up 6 month follow up for RLE hardware infection HISTORY OF PRESENT ILLNESS The patient is a 52 y.o. 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 Pt was in a [facility] at age 27 where he sustained compound fractures of his BLEs requiring plates, grafts, flap closure. In April 2018, his incision opened up on its own. Pt nursed it at home with OTC antibiotic ointment, peroxide for 2 months. Pt reports a few weeks later, it recurred. His leg became red, swollen, and painful. Pt was seen in the [place] ED and diagnosed with a bone infection. [...] mouth 2 times daily. 60 tablet 0 Yluopqp-Riuveyubdquah-Sronxhnc (EXCEDRIN EXTRA STRENGTH PO) Take 500 mg [...] surgery at this time 2) encounter for nursing home antibiotics - cbc with diff, chem comp, [...] stated that [facility] in the [facility]. If the patient is a minor, permission has been obtained by the parent or guardian for the patient to receive medical care at this visit. documented in this encounter [facility] 10-11-2022 History of Present illness Narrative 30 day refill prescribed documented in this encounter [facility] 05-17-2022 Miscellaneous Notes Patient has been identified [...] No need to notify patient. 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 Type of form: physical Form received via walk in When form is completed, call patient to pickling tank operator Form has been forwarded to awilda rodney's desk Patient was last seen 01/13/21 for physical Linnea Jamison Cma documented in this encounter [facility] 08-06-2021 Note HNO ID: [id number] Author: RT Noam(R) Service: Radiology Author Type: [...] PERIPHERAL IV DATA: Not applicable SIGNED BY: Caren Yo, (R) August 06, 2021 9:28 AM [facility] 08-06-2021 Note HNO ID: [id number] Author: Awilda Rodney PA-C Service: ? Author Type: Physician Contact Centre Supervisor Type: Progress Notes Filed: 08/06/2021 9:57 AM [...] disease. - COPD (chronic obstructive pulmonary disease) ([facility]) Previous Surgical History PAST SURGICAL HISTORY [...] - CONSULT TO ORTHOPAEDICS Awilda Rodney PA-C [facility] 08-06-2021 History of Present illness Narrative Chief [...] PAST MEDICAL HISTORY Diagnosis Date Bone infection ([facility]) 06/2020 Right Lower Leg Chronic osteomyelitis ([facility]) 01/13/2021 Seeing ortho and Infectious disease. COPD (chronic obstructive pulmonary disease) ([facility]) Previous Surgical History PAST SURGICAL HISTORY [...] Awilda Rodney PA-C documented in this encounter [facility] 01-13-2021 Note HNO ID: [id number] Author: Awilda Rodney PA-C Service: ? Author Type: Physician Contact Centre Supervisor Type: Progress Notes Filed: 01/13/2021 8:45 AM [...] organomegaly. Extremities: multip (more content not included)... [facility] 09-04-2020 Note HNO ID: [id number] Author: Awilda Rodney PA-C Service: ? Author Type: Physician Contact Centre Supervisor Type: Progress Notes Filed: 09/04/2020 8:05 AM [...] which included preparing to see the patient, [id number] patient care, com (more content not included)... [facility] documented as of this encounter (statuses as of 08/06/2021) [facility]04-22-2021 History of Past illness Narrative* Problem Noted Date Resolved Date Special screening for malignant neoplasm of colo n 07/03/2020 07/03/2020 documented as of this encounter (statuses as of 12/25/2021) [facility] History of Past illness Narrative* Problem Noted Date Resolved Date Special screening for malignant neoplasm of colo n 07/03/2020 07/03/2020 documented as of this encounter (statuses as of 05/17/2022) [facility] Diagnosis Acute pain of left shoulder- Primary [facility] Diagnosis Chronic osteomyelitis (CMS/HCC) (HCC)- Primary [facility] Diagnosis Chronic osteomyelitis (CMS/HCC) (HCC)- Primary Hardware complicating wound infection, subsequent encounter watermaster (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 [facility] Diagnosis Chronic osteomyelitis (CMS/HCC) (HCC)- Primary Closed disp comminuted fracture of shaft of left femur with malunion [facility] Diagnosis Closed disp comminuted fracture of shaft of left femur with malunion- Primary Chronic osteomyelitis (CMS/HCC) (HCC) [facility] Diagnosis Chronic osteomyelitis (CMS/HCC) (HCC)- Primary Closed disp comminuted fracture of shaft of left femur with malunion [facility] Diagnosis Chronic osteomyelitis of right tibia (CMS/HCC) (HCC)- Primary Other chronic osteomyelitis, unspecified site (HCC) Displaced comminuted fracture of shaft of left femur, subsequent encounter for closed fracture with malunion [facility] Diagnosis Chronic osteomyelitis of right tibia (CMS/HCC) ([facility])- Primary Chronic osteomyelitis of right tibia (CMS/HCC) ([facility]) Other chronic osteomyelitis, unspecified site ([facility]) Displaced comminuted fracture of shaft of left femur, subsequent encounter for closed fracture with malunion Osteomyelitis of right lower extremity ([facility]) correction (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 documented in this encounter [facility] note* Diagnosis Chronic osteomyelitis (CMS/HCC) ([facility])- Primary documented in this encounter [facility] note* Diagnosis Chronic osteomyelitis (CMS/[facility]) ([facility])- Primary Hardware complicating wound infection, subsequent encounter Pseudomonas aeruginosa infection watermaster (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 [facility] N[facility]* Procedure Summary Procedure Name Responsible [...] Rancho Lyman RN documented in this encounter [facility] Reason for Referral Specialty Diagnoses / Procedures Referred By Mica rose Referred To Contact Orthopedics Diagnoses Acute pain of left shoulder Procedures CONSULT TO ORTHOPAEDICS OFFICE/OUTPATIENT [facility] 60-74 MINUTES Awilda Rodney PA-C [address] [place] [address] Referral ID Status Reason Start Date Expiration Date Visits Requested Visits Authorized [id number] Authorized PCP Requested Referral 08/06/2021 08/06/2022 1 1 Specialty Diagnoses / Procedures Referred By Mica rose Referred To Contact XR IMAGING Diagnoses Acute pain of left shoulder Procedures XR SHOULDER GENERAL 3V OR MORE AP/TRUE AP/OTHER LEFT RADEX SHOULDER COMPLETE MINIMUM 2 VIEWS Awilda Rodney PA-C [address] [place] [address] Xr Imaging Referral ID Status Reason Start Date Expiration Date V isits Requested Visits Authorized [id number] Closed Auto-Generate d Referral 08/06/2021 09/05/2022 1 1 Advance Directives No Advanced Directives Records FoundDocuments on File Type Date Recorded Patient Parliamentary Counsel Expl anation Advance Directive(s) 07/03/2020 9:30 AM [...] or prosecute any alcohol or drug abuse patient.[facility] the event this information is protected by the Federal Confidentiality of Alcohol and Drug Abuse Patient Records regulations: The Federal rules restrict any use of the information to criminally investigate or prosecute any alcohol or drug abuse patient.[facility] the event this information is protected by the Federal Confidentiality of Alcohol and Drug Abuse Patient Records regulations: The Federal rules restrict any use of the information to criminally investigate or prosecute any alcohol or drug abuse patient.[facility] Reason for Visit (unrecogniz ed section and content) Reason Comments Forms Reason Comments Refill Request Reason Comments Follow-up 6 month follow up fo r RLE hardware infection Reason Onset Date Comments Appointment Request 11/29/2022 Reason Comments Follow-up ORIF R tibia Reason Comments Follow-up Sx Discussion Reason Onset Date Comments Surgery Scheduling 02/23/2023 Specialty Diagnoses / Procedures Referred By Contac t Referred To Contact Diagnoses Other chronic osteomyelitis, unspecified site (HCC) Displaced comminuted fracture of shaft of left femur, subsequent encounter for closed fracture with malunion Other chronic osteomyelitis, unspecified site (HCC) [M86.60] Displaced comminuted fracture of shaft of left femur, subsequent encounter for closed fracture with malunion [S72.352P] Procedures MA REMOVAL IMPLANT DEEP MA INCISION & DRAINAGE LEG/ANKLE ABSCESS/HEMATOMA HOLD ANTIBIOTICS FOR CULTURES, REMOVAL LATERAL TIBIAL PLATEAU PLATE, INCISION AND DRAINAGE OF DEEP RIGHT LEG ABSCESS, POSSIBLE APPLICATION WOUND VAC INCISION AND DRAINAGE LEG OR ANKLE DEEP ABSCESS OR HEMATOMA Kendell Griffiths MD [address] [facility] [address] [place] [address] [facility] [address] [facility] [place] [address] Referral ID Status Reason Start Date Expiration Date Visits Re quested Visits Authorized [id number] 1 Reason Comments Follow-up Follow up tibial OM Care Teams (unrecognized sec tion and content) 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 Specialty Start Date End Date Yeison Jean MD [address] [place], [place] [phone] PCP - General Family Medicine 01/13/21 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 Specialty Start Date End Date Awilda Rodney [address] [place], [place] [phone] PCP - General 07/28/21 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 Specialty Start Date End Date Awilda Rodney [address] [place] [address] PCP - General 07/28/21 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 Specialty Start Date End Date Awilda Rodney [address] [place] [address] PCP - General 07/28/21 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 Specialty Start Date End Date Awilda Rodney [address] [place] [address] PCP - General 07/28/21 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 Specialty Start Date End Date Awilda Rodney [address] [place] [address] PCP - General 07/28/21 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 Specialty Start Date End Date Awilda Rodney [address] [place] [address] PCP - General 07/28/21 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 Specialty Start Date End Date Awilda Rodney [address] [place] [address] PCP - General 07/28/21 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 Specialty Start Date End Date Awilda Rodney [address] [place] [address] PCP - General 07/28/21 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 Specialty Start Date End Date Awilda Rodney [address] [place] [address] PCP - General 07/28/21 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 Specialty Start Date End Date Awilda Rodney [address] [place] [address] PCP - General 07/28/21 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 Specialty Start Date End Date RashaunBalAwilda [address] [facility] [place] [phone] PCP - General 07/28/21 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 Specialty Start Date End Date RodneyBalAwilda [address] [place] [phone] PCP - General 07/28/21 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 Specialty Start Date End Date RashaunBalAwilda [address] [facility], [place] [phone] PCP - General 07/28/21 (unrecognized sect ion and content) No Status Records FoundNo Status Records Found INFORMATION SOURCE (unrecogn ized section and content) DATE CREATED AUTHOR AUTHOR'S ORGANIZ ATION 04/30/2023 [facility] Scheduled Active and Recently Administ ered Medications [...] 1505 0410 (Given - Provider: Linnea Regalado, BALJIT)1411 (Given - Provider: Jo Altamirano, BALJIT) 0913 (Given - Provider: Jo Doe, BALJIT) naloxone (Narcan) injection 0.4 mg 0.4 mg, IntraVENous, Every 5 min PRN, opioid reversal, respiratory depression, Starting on Prisca 03/24/23 at 1508, +++ For RR <10, pinpoint pupils, over sedation for opioid reversal - MUST notify computer applications engineer provider immediately after first dose, may give IM or SQ if no IV access +++ oxyCODONE (Roxicodone) immediate release tablet 10 mg(Linked Group 2) 10 mg, Oral, Every 4 hours PRN, severe pain (7-10), Starting on Prisca 03/24/23 at 1505 oxyCODONE (Roxicodone) immediate release tablet 5 mg(Linked Group 2) 5 mg, Oral, Every 4 hours PRN, moderate pain (4-6), Starting on Prisca 03/24/23 at 1505 sodium chloride 0.9% (NS) flush [...] BE BASED ON THE PRIMARY CLINICAL RECORDS. [facility]. provides no warranty or guarantee of the accuracy or completeness of information in this document.
== END | disposition home or self-care (01) ==
LOC: LABSPEC 13:08
DX: T84.622D Infection and inflammatory reaction due to internal fixation device of right tibia, subsequent encounter (principal); M86.661 Other chronic osteomyelitis, right tibia and fibula
CPT/HCPCS: 80048; 85025

== ENCOUNTER → 2024-01-20 | Outpatient (CLI) | payer BC, SELFPAY ==
[2024-01-20 16:37] LABS: Absolute Lymphocyte Count 1.31 X10^3/uL (0.83-4.51); Absolute Neutrophil Count 4.3 X10^3/uL (2.0-7.7); Basophil# 0.07 X10^3/uL; Basophil% 1.1 % (0-1); Eosinophil# 0.17 X10^3/uL; Eosinophils% 2.6 % (0-5); Hematocrit 36.2 % (40-54); Lymphocyte # 1.31 X10^3/ul (0.83-4.51); Lymphocyte % 20.2 % (19-41); Mean Corp Hgb Conc 33.1 g/dL (32-36); Mean Corpuscular Hgb 32.6 pg (27.0-32.0); Mean Corpuscular Volume 98.4 fL (80-94); Mean Platelet Vol. 8.9 fl (6.2-12.0); Monocyte# 0.63 X10^3/uL; Monocyte% 9.7 % (0-10); NRBC Flagged by Analyzer 0 % (0-5); Neutrophil # 4.26 X10^3/uL (2.7-7.7); Neutrophil % 65.8 % (47-70); Platelet Count 246 K/mm3 (150-450); RBC Distribution Width CV 14.2 % (11.6-14.6); RBC Distribution Width SD 51.5 fl (35.1-43.9); Red Blood Count 3.68 M/mm3 (4.6-6.2); White Blood Count 6.5 K/mm3 (4.4-11.0)
[2024-01-20 16:48] LABS: Erythrocyte Sedimentation Rate 20 mm/hr (0-20)
[2024-01-20 16:56] LABS: CRP 5.98 mg/L (0.0-3.0)
[2024-01-20 17:15] LABS: Vitamin D,25 Hydroxy 30.2 ng/mL
== END | disposition home or self-care (01) ==
LOC: LAB 16:03
PROVIDERS: Referring Provider Physician Assistant; Visit Provider Physician Assistant
DX: S72.352 Displaced comminuted fracture of shaft of left femur (principal)
CPT/HCPCS: 36415; 82306; 85025; 85652; 86140

== ENCOUNTER → 2024-08-15 | Outpatient (CLI) | payer BC, SELFPAY ==
[2024-08-15 15:29] LABS: Hematocrit 39.8 % (40-54); Hemoglobin 13.2 g/dL (13.0-16.5); Mean Corp Hgb Conc 33.2 g/dL (32-36); Mean Corpuscular Volume 96.6 fL (80-94); Mean Platelet Vol. 9.1 fl (6.2-12.0); Platelet Count 331 K/mm3 (150-450); RBC Distribution Width CV 14.9 % (11.6-14.6); RBC Distribution Width SD 53.3 fl (35.1-43.9); Red Blood Count 4.12 M/mm3 (4.6-6.2); White Blood Count 7.1 K/mm3 (4.4-11.0)
[2024-08-15 16:02] LABS: Erythrocyte Sedimentation Rate 22 mm/hr (0-20)
[2024-08-15 16:03] LABS: ALB/GLOB Ratio 1.3 RATIO (0.9-2.4); AST(SGOT) 21 U/L (<=37); Alanine Aminotransfer ALT/SGPT 12 U/L (<=46); Albumin, Serum 4.2 g/dL (3.5-5.0); Alkaline Phosphatase 85 U/L (40-129); Anion Gap 17 (5-15); BUN 19 mg/dL (4-19); BUN/Creat Ratio 22.2 RATIO (10-20); Calcium,Total 9.3 mg/dL (7.6-11.0); Carbon Dioxide 18.6 mmol/L (21.0-32.0); Chloride 104 mmol/L (98-108); Creatinine, Serum 0.83 mg/dL (0.70-1.20); EST Glomerular Filtration Rate 103 (>60); Globulin 3.3 g/dL (2.2-4.2); Glucose 106 mg/dL (70-99); Potassium 3.7 mmol/L (3.3-5.1); Protein, Total 7.5 g/dL (5.9-8.4); Sodium Level 139 mmol/L (133-145)
[2024-08-15 16:07] LABS: CRP < 3.00 mg/L (0.0-3.0)
== END | disposition home or self-care (01) ==
LOC: LAB 14:58
PROVIDERS: Referring Provider Orthopaedic Surgery; Visit Provider Orthopaedic Surgery
DX: S72.322K Displaced transverse fracture of shaft of left femur, subsequent encounter for closed fracture with nonunion (principal); M17.11 Unilateral primary osteoarthritis, right knee
CPT/HCPCS: 36415; 80053; 85027; 85652; 86140